=== PATIENT | male | born 1960 | race Caucasian/White ===

== ENCOUNTER 2020-05-27 08:05 | Outpatient (REF) | payer MEDICARE, MEDICAID, SELFPAY | END 2020-05-27 08:06 | disposition home or self-care (01) | LOC: HO.LAB 08:05 | PROVIDERS: PCP Physician Assistant; Referring Provider Physician Assistant; Visit Provider Internal Medicine | DX: Z20.822 Contact with and (suspected) exposure to COVID-19 (principal) | CPT/HCPCS: 36415; C9803; U0003 ==

== ENCOUNTER → 2020-07-29 12:58 | Outpatient (BNVA) | payer MEDICARE, MEDICAID, SELFPAY | PROVIDERS: PCP Physician Assistant; Visit Provider Anesthesiology | DX: M96.1 Postlaminectomy syndrome, not elsewhere classified (principal); M46.40 Discitis, unspecified, site unspecified; F19.10 Other psychoactive substance abuse, uncomplicated; G06.1 Intraspinal abscess and granuloma | CPT/HCPCS: 99202 ==

== ENCOUNTER 2020-08-22 17:57 | Outpatient (REF) | payer MEDICARE, MEDICAID, SELFPAY ==
--- NOTE | ~2020-08-22 | MR_ITS ---
MR LUMBAR SPINE WITHOUT CONTRAST CLINICAL INFORMATION: Discitis. COMPARISON: Lumbar spine MRI 09/12/2019. TECHNIQUE: MRI of the lumbar spine was obtained using routine sequences without contrast. FINDINGS: Straightening of the lumbar lordosis. 5 nonrib-bearing lumbar-type vertebral bodies. Postoperative changes following posterior instrumented lumbar interbody fusion spanning the L4-S1 levels. There is improved marrow edema involving the L1 and L2 vertebral bodies and there is near complete loss of the L1-L2 intervertebral disc with opposing L1 and L2 endplate irregularity. No residual epidural collection and no residual myositis. Vertebral body heights are maintained. Moderate disc volume loss at L2-L3. Disc desiccation at L2-L3 and L3-L4. The conus terminates at the L1-L2 level. There are no significant soft tissue findings. Spondylitic changes result in similar severe bilateral foraminal stenosis at T11-T12 and severe left-sided foraminal stenosis at T12-L1. L1-L2: Diffuse disc osteophyte complex and left greater than right hypertrophic facet arthropathy and ligamentum flavum thickening. Mild narrowing of the central canal. Similar severe left foraminal stenosis with compression of the exiting left L1 nerve root. L2-L3: Diffuse disc osteophyte complex and severe bilateral facet arthropathy and ligamentum flavum thickening. Findings in concert result in similar mild to moderate central canal stenosis and moderate bilateral foraminal stenosis. L3-L4: There is a diffuse annular disc bulge and there is severe bilateral facet arthropathy and ligamentum flavum thickening. Findings in concert result in worsening moderate central canal stenosis, bilateral subarticular zone stenosis with mass effect on the traversing L4 nerve roots bilaterally, and moderate right foraminal stenosis with right lateral disc osteophyte resulting in mass effect on the extraforaminal right L3 nerve root. L4-L5: Postoperative changes following posterior instrumented lumbar interbody fusion. No central canal stenosis and no significant foraminal stenosis. L5-S1: Postoperative changes following posterior instrumented lumbar interbody fusion. No central canal stenosis and no foraminal stenosis. 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 No residual epidural collection and no residual myositis. - At L1-L2, multifactorial degenerative changes result in similar severe left foraminal stenosis with compression of the exiting left L1 nerve root. - At L2-L3, multifactorial degenerative changes result in similar mild to moderate central canal stenosis and moderate bilateral foraminal stenosis. - At the L3-L4 junctional level, multifactorial degenerative changes result in worsening moderate central canal stenosis, bilateral subarticular zone stenosis with mass effect on the traversing L4 nerve roots bilaterally, and moderate right foraminal stenosis with right lateral disc osteophyte resulting in mass effect on the extraforaminal right L3 nerve root. - Chronic postoperative changes following posterior instrumented lumbar interbody fusion at the L4-S1 levels. No central canal stenosis and no foraminal stenosis at the postoperative levels.
== END 2020-08-22 17:58 | disposition home or self-care (01) ==
LOC: HO.MRI 17:57
PROVIDERS: Visit Provider Anesthesiology
DX: M46.40 Discitis, unspecified, site unspecified (principal); G06.1 Intraspinal abscess and granuloma; M96.1 Postlaminectomy syndrome, not elsewhere classified
CPT/HCPCS: 72148

== ENCOUNTER 2022-01-20 14:30 | Outpatient (REF) | payer MEDICARE, MEDICAID, SELFPAY ==
--- NOTE | ~2022-01-20 | US_ITS ---
EXAMINATION: US ABDOMEN LIMITED CLINICAL INFORMATION: Intra-abdominal and pelvic swelling. Mass, lump question hernia. COMPARISON: CT abdomen and pelvis without contrast 09/05/2019. TECHNIQUE: Real-time imaging of the soft tissues of the right lower quadrant abdominal wall. FINDINGS: No hernia is appreciated by ultrasound. No soft tissue mass, cyst or fluid collection is appreciated. US/US abdomen limited IMPRESSION: No hernia appreciated by ultrasound.
--- NOTE | ~2022-01-20 | US_ITS ---
EXAMINATION: US RETROPERITONEAL LIMITED (AORTA) CLINICAL INFORMATION: Smoking history COMPARISON: None TECHNIQUE: Gibbs-scale, color Doppler and spectral Doppler evaluation of the abdominal aorta. FINDINGS: There is atherosclerotic disease..The measurements of the aorta in maximum AP and transverse dimensions respectively are as follows: Proximal: 3.1 x 3.0 cm. Mid: 2.3 x 2.2 cm. Distal: 2.4 x 2.0 cm. PSV: 81 cm/s. The measurements of the common iliac arteries in maximum AP and TRV dimensions are as follows: Right Common Iliac Artery: 1.4 x 1.3 cm. Left Common Iliac Artery: 1.7 x 1.6 cm. US/US abdominal aortic aneurysm IMPRESSION: No abdominal aortic or iliac artery aneurysm.
== END 2022-01-20 14:31 | disposition home or self-care (01) ==
LOC: HO.US 14:30
PROVIDERS: Visit Provider Nurse Practitioner Family
DX: Z13.6 Encounter for screening for cardiovascular disorders (principal); R19.00 Intra-abdominal and pelvic swelling, mass and lump, unspecified site; F17.200 Nicotine dependence, unspecified, uncomplicated
CPT/HCPCS: 76705; 76706

== ENCOUNTER → 2022-03-17 12:36 | Outpatient (BNVA) | payer OTHER, SELFPAY | PROVIDERS: PCP Physician Assistant; Visit Provider Surgery | DX: K40.90 Unilateral inguinal hernia, without obstruction or gangrene, not specified as recurrent (principal); F17.210 Nicotine dependence, cigarettes, uncomplicated | CPT/HCPCS: 99202 ==

== ENCOUNTER 2022-03-31 13:51 | Outpatient (REF) | payer OTHER, SELFPAY ==
[2022-03-31 14:33] LABS: MANUAL DIFF FLAG NO
[2022-03-31 14:39] LABS: Basophils Absolute Auto 0.1 X10*3/uL (0.0-0.2); Basophils Percent Auto 1.6 % (0-2); Eosinophils Absolute Auto 0.4 X10*3/uL (0.0-0.4); Eosinophils Percent Auto 5.6 % (0-4); Hematocrit 39.2 % (42.0-52.0); Hemoglobin 12.8 g/dl (14.0-18.0); Imm Gran Abs Auto 0.02 X10*3/uL (0.00-0.03); Imm Gran Pct Auto 0.3 % (0.0-0.4); Lymphocytes Absolute Auto 2.1 X10*3/uL (1.2-4.9); Lymphocytes Percent Auto 29.8 % (20-40); Mean Corpuscular HGB Conc 32.7 g/dl (31.0-36.0); Mean Corpuscular Hemoglobin 29.8 pg (27.0-33.0); Mean Corpuscular Volume 91.4 fL (80.0-98.0); Mean Platelet Volume 8.4 fL (9.4-12.4); Monocytes Absolute Auto 0.8 X10*3/uL (0.1-1.2); Monocytes Percent Auto 11.8 % (2-11); Neutrophils Absolute Auto 3.5 x10*3/uL (2.0-8.3); Neutrophils Percent Auto 50.9 % (45-73); Platelet Count 261 X10*3/uL (160-400); Red Blood Count 4.29 X10*6/uL (4.60-5.80); Red Cell Distribution Width 13.1 % (11.0-16.0); White Blood Count 6.9 X10*3/uL (4.8-10.8)
[2022-03-31 15:43] LABS: Amphetamine Screen Urine Not Detected (Not Detect); Barbiturates, Urine Not Detected (Not Detect); Benzodiazepines Screen Urine Not Detected (Not Detect); Cannabinoid Screen Urine POSITIVE (Not Detect); Cocaine Screen Urine POSITIVE (Not Detect); Fentanyl, urine POSITIVE (Not Detect); Opiate Screen Urine POSITIVE (Not Detect); Phencyclidine Screen Urine Not Detected (Not Detect)
[2022-04-01 15:40] LABS: Estimated Average Glucose 103 mg/dL; Hemoglobin A1c % 5.2 %
[2022-04-01 15:44] LABS: Alanine Aminotransferase 21 U/L (0-40); Albumin Level 3.8 g/dL (3.5-5.0); Alkaline Phosphatase 72 U/L (39-117); Anion Gap 12 (12-20); Aspartate Amino Transferase 25 U/L (5-37); Bilirubin Total 0.3 mg/dL (0.0-1.0); Blood Urea Nitrogen 24 mg/dL (9-16); Calcium 9.2 mg/dL (8.4-10.2); Carbon Dioxide 26 mmol/L (22-29); Chloride 105 mmol/L (96-108); Estimated Glomerular Filt Rate 58; Glucose Random 69 mg/dL (60-115); Potassium 4.2 mmol/L (3.3-5.1); Sodium 139 mmol/L (135-145); Total Protein 6.6 g/dL (6.5-8.0)
[2022-04-05 00:15] LABS: Cotinine, U 109 ng/mL; Nicotine, U 558 ng/mL
== END 2022-03-31 13:52 | disposition home or self-care (01) ==
LOC: HO.LAB 13:51
PROVIDERS: PCP Physician Assistant; Visit Provider Surgery
DX: K40.90 Unilateral inguinal hernia, without obstruction or gangrene, not specified as recurrent (principal); R73.01 Impaired fasting glucose; F19.10 Other psychoactive substance abuse, uncomplicated; F17.200 Nicotine dependence, unspecified, uncomplicated
CPT/HCPCS: 80053; 80307; 80323; 83036; 85025; 99212

== ENCOUNTER 2022-04-13 09:05 | Outpatient (REF) | payer OTHER, SELFPAY ==
--- NOTE | ~2022-04-13 | CT_ITS ---
EXAMINATION: CT ABDOMEN AND PELVIS WITHOUT CONTRAST CLINICAL INFORMATION: Unilateral inguinal hernia. COMPARISON: Ultrasound abdomen and aorta limited 01/20/2022. TECHNIQUE: Multidetector volumetric imaging was performed from the superior aspect of the liver through the pubic symphysis. Sagittal and coronal reformatted images were obtained on the technologist's workstation. This CT examination was performed using dose optimization techniques as appropriate, variously including the following: *Automated exposure control *Adjustment of mA and/or kV according to patient size (this includes techniques or standardized protocols for targeted exams where dose is matched to indication/reason for exam; i.e. extremities or head) *Use of iterative reconstruction technique DLP: 408 mGy-cm FINDINGS: LUNG BASES: 3 mm and 4 mm nodules adjacent to each other left lung base image 11-7 and 10-7 respectively. The right lung base is clear. The heart size is normal. LIVER, GALLBLADDER, AND BILIARY TREE: The liver is normal in size, shape, and attenuation. No focal hepatic lesion or biliary ductal dilatation is present. The gallbladder is unremarkable with no evidence of radiopaque gallstones, gallbladder wall thickening, or obvious pericholecystic inflammatory changes. PANCREAS: Unremarkable. SPLEEN: Unremarkable. ADRENAL GLANDS: Unremarkable. KIDNEYS AND URETERS: The kidneys are normal in size, shape, and attenuation. No hydronephrosis, hydroureter, or calculi seen. No perinephric stranding. BLADDER: Unremarkable. GASTROINTESTINAL TRACT: There is moderate stool seen throughout the colon without significant distention. Oral contrast opacified small bowel loops is normal. There is moderate food and oral contrast recently ingested stomach. No free air or free fluid seen. ABDOMINAL WALL: There are prominent bilateral inguinal canal hernia containing retroperitoneal fat slightly greater on the right than left. No hernia was seen on ultrasound exam 01/20/2022 LYMPH NODES: No abnormal size lymph node seen. VASCULAR: Unremarkable. PELVIC VISCERA: Unremarkable. OSSEOUS STRUCTURES: There is L4-L5 and L5/S1 fusion with posterior hardware from L3 through S1 vertebra. There is posterior hardware extending from L4 through S1 vertebra. There are degenerative disc changes throughout all remaining lumbar disc levels with moderate ventral spondylosis. There is almost L1-L2 disc fusion with complete loss of disc space. [id number] dextroscoliosis of dorsolumbar junction is noted. CT/CT abdomen pelvis wo IV con IMPRESSION: 1. Moderate constipation without obstruction. 2. Prominent bilateral inguinal canal hernia containing retroperitoneal fat slightly greater on the right than left. Fleischner guidelines were followed.
[2022-04-13] MEDS: Barium Sulfate Oral (Berry) 450 ML ORAL.SUSP 900 ML PO (11:36)
== END 2022-04-13 09:06 | disposition home or self-care (01) ==
LOC: HO.CT 09:05
PROVIDERS: Visit Provider Physician Assistant
DX: K40.90 Unilateral inguinal hernia, without obstruction or gangrene, not specified as recurrent (principal)
CPT/HCPCS: 74176

== ENCOUNTER 2022-07-03 14:08 | Outpatient (REF) | payer OTHER, SELFPAY ==
--- NOTE | ~2022-07-03 | CT_ITS ---
EXAMINATION: CT CHEST SCREENING CLINICAL INFORMATION: Current smoker with 44 pack year history COMPARISON: 04/18/2020 TECHNIQUE: Multidetector volumetric CT imaging of the chest is performed without contrast using low dose technique. Additional 2D coronal and sagittal reformatted images and axial 3D maximum intensity projection (MIP) images are generated on the CT workstation. This CT examination was performed using dose optimization techniques as appropriate, variously including the following: *Automated exposure control *Adjustment of mA and/or kV according to patient size (this includes techniques or standardized protocols for targeted exams where dose is matched to indication/reason for exam; i.e. extremities or head) *Use of iterative reconstruction technique DLP: 51 mGy-cm FINDINGS: LUNGS: Mild emphysema. Diffuse moderate bronchial thickening without bronchiectasis. Stable fibronodular pleural-parenchymal scarring in the left upper lobe with associated nodular component measuring 8.8 x 5.2 mm, unchanged since 2014. A more geographic nodular component is present superiorly, also stable in size and morphology. No parenchymal consolidation MEDIASTINUM: Normal heart size. No pericardial effusion. Great vessels normal caliber. No mediastinal or hilar lymphadenopathy. CORONARY ARTERY CALCIFICATION: Present PLEURA: There is no pleural effusion. No pleural mass or thickening. AXILLA: No lymphadenopathy. UPPER ABDOMEN: Unremarkable OSSEOUS STRUCTURES: No acute or suspicious osseous abnormalities. CT/CT lung screening IMPRESSION: No evidence of pulmonary malignancy. Mild emphysema and chronic airways disease. ASSESSMENT: Lung-RADS category 2: Benign RECOMMENDATION: Routine annual low-dose CT screening in 12 months.
== END 2022-07-03 14:09 | disposition home or self-care (01) ==
LOC: HO.CT 14:08
PROVIDERS: PCP Physician Assistant; Visit Provider Physician Assistant Medical
DX: Z12.2 Encounter for screening for malignant neoplasm of respiratory organs (principal); F17.210 Nicotine dependence, cigarettes, uncomplicated
CPT/HCPCS: 71271; G0296

== ENCOUNTER 2022-12-14 14:10 | Outpatient (AMB) | payer OTHER, SELFPAY ==
--- NOTE | 2022-12-14 14:25 | MHC.OFFVIS ---
Intake Vital Signs 12/14/22 14:30 Height 5 ft 9 in Weight 152 lb BMI 22.4 BP 122/78 Blood Pressure Location Lt brachial Position Standing Pulse 92 Pulse Source Pulse Oximeter Pulse Oximetry (%) 97 Oxygen Delivery Method Room Air Intake Visit Reasons: Emphysema Intake Note: pt is here as new patient for emphysema, and was referred for management. Dental Associate Required: No Allergies No Known Allergies [No Known Allergies*] Allergy (Verified 12/14/22 15:14) Medication List - Last Reconciled 12/14/22 by Regina Alejandro MD albuterol sulfate 2.5 mg (3 mL) inhalation Q6H PRN 30 days albuterol sulfate 90 mcg/actuation 2 puffs PO Q6H PRN 30 days baclofen 20 mg PO TID PRN fluticasone furoate-vilanterol 100-25 mcg/dose (Breo Ellipta) 1 ea PO DAILY ibuprofen 800 mg PO Q6H PRN 15 days nicotine (polacrilex) 2 mg buccal Q2H PRN 30 days Do you need a note to return to daycare/school/sports/work: No HPI Emphysema HPI Details This 62 years old gentleman is being seen for the 1st time, for his COPD management. He has history of smoking since age 16 , but smoked 1 pack in about 1 week. now he is smoking only 3-4 cigarettes a day, trying to quit. He started going for Annual lung screening, and had his low does CT scan in July of this year. No significant pulmonary nodules but he was told that he has pulmonary emphysema. Prior to that, he was told about 10 years ago that he has COPD. but when he was told that he has pulmonary emphysema he became much more concerned. He he had pulmonary function test the a in 2011, which I have reviewed, and definitely showed that he had severe chronic obstructive pulmonary disease even at that yahaira. Luckily he has been doing well, with minimal to moderate symptoms. He say is that he used to get recurrent respiratory infection but since he has started getting annual flu shot and also pneumonia shorts Q 5 y,ears he has had no serious chest infection. During his normal day-to-day activities he does not feel much short of ,breath a.nd cough is also minimal. However if he has to walk fast or climbs stairs he does get short of breath. Meds : Breo 100-25 1 inhalation daily, ProAir HFA 2 puffs Q 6 hours p.r.n. which he uses only once in awhile . Also has nebulizer at home and occasionally uses albuterol solution in that. [facility] Medical History (Updated 12/14/22 @ 16:49 by Regina Alejandro MD) Bacterial spinal epidural abscess (~09/2019) Discitis Intravenous drug abuse Nicotine dependence, cigarettes, uncomplicated Postlaminectomy syndrome Pulmonary emphysema Surgical History History of appendectomy History of colonoscopy History of lumbar surgery History of tonsillectomy Family History Father Medical history unknown Mother No problems noted. Social History Housing: House Alcohol intake: current Alcohol intake frequency: holidays/special occasions only Alcohol type: beer Patient Tobacco Use Status: Current everyday Tobacco user Tobacco use type: Cigarette Cigarettes Per Day: 4 Years Smoked: onset 16yo, 1ppd x 46yrs, now 5cig/day - 40pyh e-Cigarette/Vaping Use: Never Used Second Hand Smoke Exposure: Yes Substance Use Type: Crack/Cocaine and IV Drugs service: No Current occupational status: unemployed Cognitive needs: No Hearing needs: No Vision needs: Yes (reading glasses) Review of Systems Const All systems reviewed & are unremarkable except as noted in HPI and below Eyes Reports no additional complaints ENT Reports no additional complaints Card Denies chest pain, Denies irregular heart rhythm and Denies leg edema Resp Reports as per HPI GI Reports no additional complaints Reports no additional complaints Musc Reports back pain ( chronic, uses muscle relaxants and ibuprofen p.r.n.) Skin/Breast Reports system reviewed and no additional complaints, except as documented Neuro Reports no additional complaints Psych Reports no additional complaints Endo Reports no additional complaints Aller/Immun Reports no additional complaints Physical Exam Vital Signs: Last Vital Signs Pulse 92 12/14/22 14:30 BP 122/78 12/14/22 14:30 Pulse Ox 97 12/14/22 14:30 Oxygen Delivery Method Room Air 12/14/22 14:30 BMI result Body Mass Index 22.4 Const General: healthy appearing, comfortable, no acute distress, alert and awake Orientation/consciousness: patient oriented x3 HEENT Head: Yes normal to inspection General nose exam: No nasal polyps present and No nasal discharge present Face and sinus: Yes sinuses nontender Mouth: oropharynx normal Throat: Yes posterior oropharynx normal Eyes General: appearance normal, both eyes and all related structures Neck Neck: Yes normal visual inspection, Yes no lymphadenopathy, Yes trachea midline and Yes no JVD Thyroid: Thyroid normal Chest Chest palpation & inspection: normal inspection of the chest, normal palpation of entire chest wall and no tenderness Resp Other: PERCUSSION NOTE IS HYPER-RESONANT, BREATH SOUNDS ARE DISTANT ON BOTH SIDES WITH. PROLONGED EXPIRATORY PHASE. NO WHEEZE.S RHONCHI OR CREPITATIONS ARE HEARD Cardio Palpation: normal PMI Rate: regular rate Rhythm: regular rhythm Heart sounds: no gallops and no murmurs Peripheral pulses: Peripheral pulses 2+ throughout GI Palpation (GI): Soft to palpation, nontender, No hepatosplenomegaly present and no masses Auscultation: normal bowel sounds Back/Spine/Pelvis Thoracic/Lumbar Spine: thoracic and lumbar spine normal to inspection Skin General skin exam: no rashes or lesions noted Neuro General: patient oriented x3 and no focal motor deficits Cranial nerves: Yes CN's II-XII intact bilaterally Extrem General: Yes normal to inspection, Yes no clubbing, cyanosis or edema and Yes no calf tenderness Psych Appearance: grossly normal and well kempt Speech and movement: Normal speech and movement present Results Reviewed Results Reviewed: CT SCAN OF THE CHEST ON 07/03/22 NEGATI.VE FOR PULMONARY NODULES. SHOWED PULMONARY EMPHYSEMA Assessment & Plan Assessment & Plan (1) COPD (chronic obstructive pulmonary disease): Comment: THIS GENTLEMAN DOES HAVE MODERATE AT LEAST SEVERE CHRONIC OBSTRUCTIVE PULMONARY DISORDER., PER PFT IN 2012 HE HAS REMAINED RELATIVELY STABLE, BUT SHORT OF BREATH ON EXERTION. TX : CONTINUE TO USE BREO 100-25 1 INHALATION DAILY ALBUTEROL HFA 2 PUFFS Q 4-6 HOURS P.R.N. AND ALTERNATIVELY ALBUTEROL 2.5 MG SOLUTION IN THE NEBULIZER P.R.N.. * REPEAT PULMONARY FUNCTION TEST IS ORDERED, AND WILL RE-EVALUATE AFTER THE TEST IF HE NEEDS ANY ADDITIONAL MEDICINE. Code(s): J44.9 - Chronic obstructive pulmonary disease, unspecified Qualifiers: COPD type: emphysema Emphysema type: centrilobular Qualified Code(s): J43.2 - Centrilobular emphysema (2) Pulmonary emphysema: Comment: PATIENT DOES HAVE EVIDENCE OF PULMONARY. EMPHYSEMA O N THE CT SCAN I EXPLAINED TO HIM THAT PULMONARY EMPHYSEMA ARE COPD ARE 1 AND THE SAME THING. EDUCATED ABOUT. COPD IN HIS CASE COPD IS PREDOMINANTLY DUE TO PULMONARY EMPHYSEMA. Code(s): J43.9 - Emphysema, unspecified (3) Nicotine dependence, cigarettes, uncomplicated: Comment: (current smoker, onset 16yo, 1ppd x 46yrs, now 1/4ppd - 40pyh) at present he is smoking about 5 cigarettes a day, I counselled him a that he needs to quit completely. he will continue to participate in annual lung screening program. Code(s): F17.210 - Nicotine dependence, cigarettes, uncomplicated Orders: Orders PFT pulmonary function test Today F17.210 - Nicotine dependence, cigarettes, uncomplicated, J43.9 - Emphysema, unspecified, J44.9 - Chronic obstructive pulmonary disease, unspecified Medications: Changed From baclofen 20 mg PO TID 30 days 90 tabs 3RF M51.16 - Intervertebral disc disorders with radiculopathy, lumbar region To baclofen 20 mg PO TID PRN M51.16 - Intervertebral disc disorders with radiculopathy, lumbar region Coding Level of Care Code New Pt Level 4 (46011) Diagnoses COPD (chronic obstructive pulmonary disease) J43.2 COPD type: emphysema Emphysema type: centrilobular Pulmonary emphysema J43.9 Nicotine dependence, cigarettes, uncomplicated F17.210
[2022-12-14 14:30] VITALS: BP 122/78; PULSE 92; O2SAT 97; BMI 22.4
== END 2022-12-14 15:15 | disposition home or self-care (01) ==
PROVIDERS: PCP Physician Assistant; Visit Provider Internal Medicine
DX: J43.2 Centrilobular emphysema (principal); J43.9 Emphysema, unspecified; F17.210 Nicotine dependence, cigarettes, uncomplicated
CPT/HCPCS: 99204

== ENCOUNTER → 2022-12-14 14:10 | Outpatient (BNVA) | payer OTHER, SELFPAY | PROVIDERS: PCP Physician Assistant; Visit Provider Internal Medicine | DX: J43.2 Centrilobular emphysema (principal); F17.210 Nicotine dependence, cigarettes, uncomplicated | CPT/HCPCS: 99202 ==

== ENCOUNTER 2023-01-11 09:23 | Outpatient (AMB) | payer OTHER, SELFPAY ==
--- NOTE | 2023-01-11 09:45 | MHC.PC.OV ---
Vital Signs 01/11/23 09:46 Height 5 ft 9 in Weight 154 lb BMI 22.7 BP 124/80 Blood Pressure Location Lt brachial Position Sitting Pulse 87 Pulse Source Pulse Oximeter Pulse Oximetry (%) 97 Oxygen Delivery Method Room Air Intake Visit Reasons: f/u COPD Intake Note: Patient is here to follow up on COPD. Stemhole Borer And Topper Required: No Buttonholer: Not Required per policy Accompanied by: Self / Same As Patient Allergies No Known Allergies [No Known Allergies*] Allergy (Verified 01/11/23 10:18) Medication List - Last Reconciled 01/11/23 by IMANI Granado albuterol sulfate 2.5 mg (3 mL) inhalation Q6H PRN 30 days albuterol sulfate 90 mcg/actuation 2 puffs PO Q6H PRN 30 days baclofen 20 mg PO TID 90 days fluticasone furoate-vilanterol 100-25 mcg/dose (Breo Ellipta) 1 ea PO DAILY ibuprofen 800 mg PO Q6H PRN 15 days nicotine (polacrilex) 2 mg buccal Q2H PRN 30 days Tobacco use date assessed: 01/11/23 Dental Screening Dental Screen Date: 01/11/23 Did you have a dental visit in the last 12 months?: No Did you have a dental problem in the last 6 months where you did not have access to dental care?: No Was dental information given to patient?: No HPI HPI Comments History of Present Illness Details 62-year-old male past medical history significant for COPD, pulmonary emphysema, current smoker and lumbar disc disease with radiculopathy. Patient of Mloina Barcenas, presents today for follow up visit. Review of the notes patient has been seen by Dr. Alejandro pulmonology who recommended re-peat pfts to see if patient requires any addittion medication. Patient reports has an upcoming appointment for that on 01/26/23. Patient reports is having to use his rescues inhaler every night due to the humidity with some relief. Patient reports has decreased his smoking and he will maybe have 3 cigarettes per week at times he does not even finish the whole cigarette he will take a few puffs and then put it out. Patient reports that he has not used any drugs in 4 months. . [facility] Medical History (Updated 12/14/22 @ 16:49 by Regina Alejadnro MD) Pulmonary emphysema Bacterial spinal epidural abscess (~09/2019) Nicotine dependence, cigarettes, uncomplicated Intravenous drug abuse Discitis Postlaminectomy syndrome Surgical History History of colonoscopy History of appendectomy History of tonsillectomy History of lumbar surgery Family History Father Medical history unknown Mother No problems noted. Social History (Updated 01/11/23 @ 09:50 by JAY Menon) Housing: House Alcohol intake: current Alcohol intake frequency: holidays/special occasions only Alcohol type: beer Patient Tobacco Use Status: Current everyday Tobacco user Tobacco use type: Cigarette Cigarettes Per Day: 2 Years Smoked: onset 16yo, 1ppd x 46yrs, now 5cig/day - 40pyh e-Cigarette/Vaping Use: Never Used Second Hand Smoke Exposure: Yes Substance Use Type: Crack/Cocaine and IV Drugs service: No Current occupational status: unemployed Cognitive needs: No Hearing needs: No Vision needs: Yes (reading glasses) Questionnaire Thrive Questionnaire Date Thrive assessed: 09/22/22 JONES-7 AMB Questionnaire JONES-7 Date JONES - 7 assessed: 09/22/22 Source: Developed by Drs. Micheal Alba, Dorothy Carl, Nicolas Haq and colleagues, with an educational manny from [employer], IP. Review of Systems Const Denies chills, Denies fatigue, Denies fever(s) and Denies poor appetite Eyes Denies no additional complaints ENT Reports Normal hearing present Card Denies chest pain, Denies syncope, Denies rapid heart rate and Denies dyspnea Resp Denies cough and Denies dyspnea GI Denies change in stool character, Denies constipation, Denies diarrhea, Denies nausea and Denies vomiting Denies dysuria, Denies urinary frequency and Denies urinary urgency Neuro Reports Normal hearing present, Denies confusion and Denies syncope Psych Denies confusion Endo Denies fatigue Physical exam (Primary Care) Vital Signs: Last Vital Signs Pulse 87 01/11/23 09:46 BP 124/80 01/11/23 09:46 Pulse Ox 97 01/11/23 09:46 Oxygen Delivery Method Room Air 01/11/23 09:46 BMI result Body Mass Index 22.7 Tobacco/Smoking Status: Tobacco use Status Tobacco use date assessed 01/11/23 01/11/23 09:51 Patient Tobacco Use Status Current everyday Tobacco 01/11/23 09:51 Tobacco use type Cigarette 01/11/23 09:51 e-Cigarette/Vaping Use Never Used 01/11/23 09:51 Thrive Assessment: Date of Thrive Assessment Date Thrive assessed 09/22/22 01/11/23 09:51 Const General: No confusion Orientation/consciousness: No confusion HENMT Head: Yes normocephalic and Yes atraumatic Eyes Conjunctivae: conjunctivae normal Chest Chest palpation & inspection: normal inspection of the chest Resp Effort & Inspection: normal respiratory effort Auscultation: no crackles, no rhonchi and wheezes scattered wheezes (scattered expiratory wheezes. ) Cardio Rate: regular rate Rhythm: regular rhythm Heart sounds: S1 normal heart sound present and S2 normal heart sound present GI Inspection: Yes normal to inspection Neuro General: No confusion Cranial nerves: Yes Normal hearing present Extrem General: No edema Assessment and Plan Assessment & Plan (1) COPD (chronic obstructive pulmonary disease): Comment: THIS GENTLEMAN DOES HAVE MODERATE AT LEAST SEVERE CHRONIC OBSTRUCTIVE PULMONARY DISORDER., PER PFT IN 2012 HE HAS REMAINED RELATIVELY STABLE, BUT SHORT OF BREATH ON EXERTION. TX : CONTINUE TO USE BREO 100-25 1 INHALATION DAILY ALBUTEROL HFA 2 PUFFS Q 4-6 HOURS P.R.N. AND ALTERNATIVELY ALBUTEROL 2.5 MG SOLUTION IN THE NEBULIZER P.R.N.. * REPEAT PULMONARY FUNCTION TEST IS ORDERED, AND WILL RE-EVALUATE AFTER THE TEST IF HE NEEDS ANY ADDITIONAL MEDICINE. Code(s): J44.9 - Chronic obstructive pulmonary disease, unspecified Qualifiers: COPD type: emphysema Emphysema type: centrilobular Qualified Code(s): J43.2 - Centrilobular emphysema Plan: Continue on current inhalers. Continue to follow with pulmonology. Repeat Pfts scheduled 01/26/23. (2) Pulmonary emphysema: Comment: PATIENT DOES HAVE EVIDENCE OF PULMONARY. EMPHYSEMA O N THE CT SCAN I EXPLAINED TO HIM THAT PULMONARY EMPHYSEMA ARE COPD ARE 1 AND THE SAME THING. EDUCATED ABOUT. COPD IN HIS CASE COPD IS PREDOMINANTLY DUE TO PULMONARY EMPHYSEMA. Code(s): J43.9 - Emphysema, unspecified Plan Follow up in 3 months or sooner if needed. Medications: Refilled ibuprofen 800 mg PO Q6H 15 days PRN 60 tabs 0RF pain M96.1 - Postlaminectomy syndrome, not elsewhere classified Coding Level of Care Code Est Pt Level 3 (68126) Diagnoses Centrilobular emphysema J43.2 COPD type: emphysema Emphysema type: centrilobular Pulmonary emphysema J43.9
[2023-01-11 09:46] VITALS: BP 124/80; PULSE 87; O2SAT 97; BMI 22.7
== END 2023-01-11 10:27 | disposition home or self-care (01) ==
PROVIDERS: PCP Physician Assistant; Visit Provider Nurse Practitioner Family
DX: J43.2 Centrilobular emphysema (principal); J43.9 Emphysema, unspecified
CPT/HCPCS: 99213

== ENCOUNTER 2023-01-11 10:31 | Outpatient (REF) | payer OTHER, SELFPAY ==
[2023-01-11 13:41] LABS: Amphetamine Screen Urine Not Detected (Not Detect); Barbiturates, Urine Not Detected (Not Detect); Benzodiazepines Screen Urine Not Detected (Not Detect); Cannabinoid Screen Urine POSITIVE (Not Detect); Cocaine Screen Urine POSITIVE (Not Detect); Fentanyl, urine POSITIVE (Not Detect); Opiate Screen Urine Not Detected (Not Detect); Phencyclidine Screen Urine Not Detected (Not Detect)
[2023-01-15 00:28] LABS: Cotinine 61 ng/mL; Nicotine <2 ng/mL
== END 2023-01-11 10:32 | disposition home or self-care (01) ==
LOC: HO.LAB 10:31
PROVIDERS: PCP Physician Assistant; Visit Provider Physician Assistant
DX: F19.10 Other psychoactive substance abuse, uncomplicated (principal); F11.20 Opioid dependence, uncomplicated; F17.210 Nicotine dependence, cigarettes, uncomplicated
CPT/HCPCS: 80307; 80323

== ENCOUNTER 2023-04-20 10:56 | Outpatient (AMB) | payer OTHER, SELFPAY ==
--- NOTE | 2023-04-20 10:59 | A.OFFPC_ITS ---
Vital Signs 04/20/23 11:07 Height 5 ft 9 in Weight 151 lb BMI 22.3 BP 120/88 Blood Pressure Location Lt brachial Position Sitting Respiration 16 Pulse 62 Pulse Source Palpation Intake Visit Reasons: COPD Follow up Tipple Tender Required: No Accompanied by: Self / Same As Patient Allergies No Known Allergies [No Known Allergies*] Allergy (Verified 04/20/23 11:10) Medication List - Last Reconciled 04/20/23 by Salinas Barcenas PA-C albuterol sulfate 2.5 mg (3 mL) inhalation Q6H PRN 30 days albuterol sulfate 90 mcg/actuation 2 puffs PO Q6H PRN 30 days baclofen 20 mg PO TID 90 days fluticasone furoate-vilanterol 100-25 mcg/dose (Breo Ellipta) 1 ea PO DAILY ibuprofen 800 mg PO Q6H PRN 15 days nicotine (polacrilex) 2 mg buccal Q2H PRN 30 days Tobacco use date assessed: 01/11/23 Dental Screening Dental Screen Date: 04/20/23 Did you have a dental visit in the last 12 months?: No Did you have a dental problem in the last 6 months where you did not have access to dental care?: No Was dental information given to patient?: Patient has dentist HPI COPD Follow up HPI Details Patient is a 62-year-old male here today for follow-up visit.? Patient has a past medical history significant for COPD, tobacco use disorder, lumbar disc disease, prior history of IV drug use (crack cocaine) .. .. Polysubstance use: Informs me he stopped snorting cocaine. This is unclear .. COPD:? Patient reports his breathing has been fairly stable, unfortunately continues to smoke a couple cigarettes per day. He continues on maintenance inhaler Breo with good effect. Has establish care with a fire control assistant whom would like to do pulmonary function tests with him. Has not been able to schedule testing. ? He is using nicotine gum which he has find helpful. We did speak about generic Chantix and would like to hold off on this for now. .. Hyperlipidemia: Has a history of elevated total cholesterol. Will recheck fasting lipid panel to assure appropriate total cholesterol and LDL. .. Lumbar disc disease:?Pain Has been fairly stable with p.r.n. use of ibuprofen and baclofen.? He does have a history of lumbar spine surgery due to not effective lumbar disc. [facility] Medical History Pulmonary emphysema Bacterial spinal epidural abscess (~09/2019) Nicotine dependence, cigarettes, uncomplicated Intravenous drug abuse Discitis Postlaminectomy syndrome Surgical History History of colonoscopy History of appendectomy History of tonsillectomy History of lumbar surgery Family History Father Medical history unknown Mother No problems noted. Social History Housing: House Alcohol intake: current Alcohol intake frequency: holidays/special occasions only Alcohol type: beer Patient Tobacco Use Status: Current everyday Tobacco user Tobacco use type: Cigarette Cigarettes Per Day: 2 Years Smoked: onset 16yo, 1ppd x 46yrs, now 5cig/day - 40pyh e-Cigarette/Vaping Use: Never Used Second Hand Smoke Exposure: Yes Substance Use Type: Crack/Cocaine and IV Drugs service: No Current occupational status: unemployed Cognitive needs: No Hearing needs: No Vision needs: Yes (reading glasses) Questionnaire Thrive Questionnaire Date Thrive assessed: 09/22/22 JONES-7 AMB Questionnaire JONES-7 Date JONES - 7 assessed: 09/22/22 Source: Developed by Drs. Micheal Alba, Dorothy Carl, Nicolas Haq and colleagues, with an educational manny from [employer]. Review of Systems Const Denies headache(s) Eyes Denies loss of vision ENT Denies vertigo, Denies dizziness, Denies headache(s) and Denies sore throat Card Denies chest pain, Denies leg edema and Denies lightheadedness Resp Denies cough, Denies hemoptysis and Denies wheezing GI Denies abdominal pain, Denies melena, Denies constipation, Denies diarrhea and Denies vomiting Denies dysuria, Denies urinary frequency and Denies urinary urgency Musc Denies arthralgias, Denies joint swelling, Denies numbness and Denies tingling Neuro Denies Abnormal speech present, Denies behavioral changes, Denies vertigo, Denies dizziness, Denies headache(s), Denies loss of vision, Denies memory loss, Denies numbness and Denies tingling Psych Denies anxiety, Denies behavioral changes, Denies depression, Denies memory loss and Denies panic attacks Blake/Lymph Denies easy bleeding and Denies easy bruising Aller/Immun Denies wheezing Physical exam (Primary Care) Vital Signs: Last Vital Signs Pulse 62 04/20/23 11:07 Resp 16 04/20/23 11:07 BP 120/88 04/20/23 11:07 BMI result Body Mass Index 22.3 Tobacco/Smoking Status: Tobacco use Status Tobacco use date assessed 01/11/23 04/20/23 10:59 Patient Tobacco Use Status Current everyday Tobacco 04/20/23 10:59 Tobacco use type Cigarette 04/20/23 10:59 e-Cigarette/Vaping Use Never Used 04/20/23 10:59 Are you ready to quit: No Tobacco cessation counseling provided: Yes Items discussed: Nicotine replacement and QuitWorks Relapse Prevention: discussed the importance of a supportive environment, discussed extending NRT, discussed negative mood or depression after quitting, weight gain after smoking is common and discussed dietary, exercise and/or lifestyle changes Number of minutes spent counselin CPT code: 37566 - 4-10 Minutes Thrive Assessment: Date of Thrive Assessment Date Thrive assessed 09/22/22 04/20/23 10:59 Const General: healthy appearing, no acute distress, alert and awake Nutritional Appearance: well nourished Orientation/consciousness: oriented to person, oriented to place and oriented to time HENMT Ears: TM's normal bilaterally General nose exam: Normal nasal mucous membranes and turbinates present Eyes Conjunctivae: conjunctivae normal Sclerae: sclerae normal Pupils: Equal, round and reactive pupils present Neck Neck: Yes no lymphadenopathy and Yes no JVD Thyroid: Thyroid normal Carotids: no bruits Resp Effort & Inspection: normal respiratory effort and not tachypneic Auscultation: no crackles, no rales, no rhonchi and wheezes Cardio Rate: regular rate Rhythm: regular rhythm Heart sounds: no murmurs and normal S1 and S2 GI Palpation (GI): Soft to palpation, nontender, no hepatomegaly and no splenomegaly Auscultation: normal bowel sounds Skin General skin exam: no rashes or lesions noted and dry skin Neuro General: oriented to person, oriented to place and oriented to time Cranial nerves: Yes Equal, round and reactive pupils present Speech: No Abnormal speech present Gait exam (Neuro): Normal gait present Motor exam (neuro): no tremor noted Extrem Right upper extremity: full ROM Left upper extremity: full ROM Right lower extremity: full ROM; no edema Left lower extremity: full ROM; no edema Psych Mental Status: mental status grossly normal Speech and movement: Normal speech and movement present Affect: normal affect Attitude: cooperative Thought process: Normal thought process present Office Procedures Flu Questionnaire Does the patient have a severe egg allergy?: No Does the patient have severe life threatening allergies?: No Does the patient have a fever or illness today?: No Has the patient ever had Guillain-Lomira Syndrome?: No Has the patient ever had any past reaction to a flu shot?: No Immunizations flu vacc [id number] 6mos up(PF) 60 mcg(15 mcgx4)/0.5 mL IM syringe Performing Provider: Salinas Barcenas PA-C Performing Location: [facility] Administered by: DAVID Urban on 04/20/23 11:10 Dose Route Admin Location Dispensed Lot Number Expiration Date [employer] (roll.to) Chief Order Dispatcher 0.5 mL IM Left Deltoid 0.5 mL [id number] 10/31/23 63308-476-83 [employer] VIS Given Date VIS Provided VIS Publication Date 04/20/23 Single Vaccine 20 Eligibility Eligibility Date Funding Source Not VFC Eligible 04/20/23 Private pneumoc 20-sarah conj-dip cr(PF) 0.5 mL IM syringe Performing Provider: Salinas Barcenas PA-C Performing Location: [facility] Administered by: DAVID Urban on 04/20/23 11:36 Dose Route Admin Location Dispensed Lot Number Expiration Date [email or web address] Chief Order Dispatcher 0.5 mL IM Left Deltoid 0.5 mL [id number] 06/03/24 1547-6745-78 [employer] VIS Given Date VIS Provided VIS Publication Date 04/20/23 Single Vaccine 21 Eligibility Eligibility Date Funding Source Not VFC Eligible 04/20/23 Private Assessment and Plan Assessment & Plan (1) COPD (chronic obstructive pulmonary disease): Comment: THIS GENTLEMAN DOES HAVE MODERATE AT LEAST SEVERE CHRONIC OBSTRUCTIVE PULMONARY DISORDER., PER PFT IN 2011 HE HAS REMAINED RELATIVELY STABLE, BUT SHORT OF BREATH ON EXERTION. TX : CONTINUE TO USE BREO 100-25 1 INHALATION DAILY ALBUTEROL HFA 2 PUFFS Q 4-6 HOURS P.R.N. AND ALTERNATIVELY ALBUTEROL 2.5 MG SOLUTION IN THE NEBULIZER P.R.N.. * REPEAT PULMONARY FUNCTION TEST IS ORDERED, AND WILL RE-EVALUATE AFTER THE TEST IF HE NEEDS ANY ADDITIONAL MEDICINE. Code(s): J44.9 - Chronic obstructive pulmonary disease, unspecified Qualifiers: COPD type: emphysema Emphysema type: centrilobular Qualified Code(s): J43.2 - Centrilobular emphysema Plan: Patient does continue to have shortness of breath and wheeze at times worse at night. Does use an albuterol inhaler and maintenance Breo inhaler with decent affect. Most recent CT chest showing mild emphysema. Unfortunately continues to smoke few cigarettes per day and does understand he needs to completely quit (2) Nicotine dependence, cigarettes, uncomplicated: Comment: (current smoker, onset 16yo, 1ppd x 46yrs, now 1/4ppd - 40pyh) at present he is smoking about 5 cigarettes a day, I counselled him a that he needs to quit completely. he will continue to participate in annual lung screening program. Code(s): F17.210 - Nicotine dependence, cigarettes, uncomplicated Plan: He does understand he needs to quit smoking though has found it very difficult to do so. Will supply him with nicotine gum again to help him with nicotine cravings. (3) Postlaminectomy syndrome: Code(s): M96.1 - Postlaminectomy syndrome, not elsewhere classified Plan: Patient does have history of acute infection (epidural abscess) is lumbar spine due to IV drug use and is status post laminectomy. He still does use as needed ibuprofen 800 and baclofen for his pain which works well. (4) Screening for diabetes mellitus (DM): Code(s): Z13.1 - Encounter for screening for diabetes mellitus (5) Insomnia: Code(s): G47.00 - Insomnia, unspecified Qualifiers: Insomnia type: primary Qualified Code(s): F51.01 - Primary insomnia Plan: Reports he has been having some trouble staying asleep at night. He is willing to try hydroxyzine on a p.r.n. basis for sleep. Also discussed [id number] melatonin, chamomile tea or Benadryl. (6) HLD (hyperlipidemia): Code(s): E78.5 - Hyperlipidemia, unspecified Qualifiers: Hyperlipidemia type: mixed hyperlipidemia Qualified Code(s): E78.2 - Mixed hyperlipidemia Plan: HAs a history of high cholesterol . WIll recheck a fasting lipid panel Orders: Orders Influenza [id number] Immunization Today Z23 - Encounter for immunization Comprehensive [place]. Panel Fast Today F51.01 - Primary insomnia Complete Blood Count no Diff Today J43.2 - Centrilobular emphysema Lipid Panel Today E78.2 - Mixed hyperlipidemia Prostate Specific Antigen Scr Today F51.01 - Primary insomnia, Z12.5 - Encounter for screening for malignant neoplasm of prostate Pneumococcal 20 Immunization Today Z23 - Encounter for immunization Medications: New hydroxyzine HCl 25 mg PO BEDTIME 14 days 14 tabs 1RF F51.01 - Primary insomnia Refilled fluticasone furoate-vilanterol 100-25 mcg/dose (Breo Ellipta) 1 ea PO DAILY 60 ea 3RF J44.9 - Chronic obstructive pulmonary disease, unspecified ibuprofen 800 mg PO Q6H 15 days PRN 60 tabs 3RF pain M96.1 - Postlaminectomy syndrome, not elsewhere classified baclofen 20 mg PO TID 90 days 270 tabs 1RF M51.16 - Intervertebral disc disorders with radiculopathy, lumbar region Coding Level of Care Code Est Pt Level 4 (22448) Diagnoses Centrilobular emphysema J43.2 COPD type: emphysema Emphysema type: centrilobular Nicotine dependence, cigarettes, uncomplicated F17.210 Postlaminectomy syndrome M96.1 Screening for diabetes mellitus (DM) Z13.1 Primary insomnia F51.01 Insomnia type: primary Mixed hyperlipidemia E78.2 Hyperlipidemia type: mixed hyperlipidemia Additional Codes Vital Signs *Quality* - CPT code: 08269 - 4-10 Minutes ([id number])
[2023-04-20 11:07] VITALS: BP 120/88; PULSE 62; RESP 16; BMI 22.3
== END 2023-04-20 11:38 | disposition home or self-care (01) ==
PROVIDERS: PCP Physician Assistant; Visit Provider Physician Assistant
DX: Z23 Encounter for immunization (principal); J43.2 Centrilobular emphysema; F17.210 Nicotine dependence, cigarettes, uncomplicated; M96.1 Postlaminectomy syndrome, not elsewhere classified; F51.01 Primary insomnia; E78.2 Mixed hyperlipidemia
CPT/HCPCS: 90471; 90677; 90686; 99214

== ENCOUNTER 2023-04-30 17:19 | Emergency (ER) | payer OTHER, SELFPAY ==
--- NOTE | ~2023-04-30 | XR_ITS ---
EXAMINATION: XR CHEST CLINICAL INFORMATION: Productive cough and fever COMPARISON: CT chest 07/03/2022.. TECHNIQUE: 2 views of the chest were obtained. FINDINGS: The lungs are hyperinflated but clear of acute process. Heart size and pulmonary vascularity is normal. No gross bony abnormality seen. There is mild scoliosis. XR/XR chest 2V IMPRESSION: Hyperinflated lungs without acute process.
[2023-04-30 18:55] VITALS: BP 133/92; PULSE 88; RESP 18; TEMP 36.8; O2SAT 95; BMI 22.4
--- NOTE | 2023-04-30 18:56 | ED_ITS ---
HPI - General Adult General Chief complaint: Upper Respiratory Symptoms Stated complaint: cough x5 days Time Seen by Provider: 04/30/23 20:34 Source: patient and RN notes reviewed Limitations: no limitations History of Present Illness HPI narrative: 62-year-old male who has a history of COPD, presents complaining of a 4 day history of cough. Patient reports having subjective fevers at home. Cough has been productive with yellowish sputum. He denies any nausea or vomiting. Patient has been using his inhaler as well as nebulizer machine at home with some relief. Because of persistent symptoms the patient presents the emergency department for further evaluation. He is up-to-date on all vaccinations. Unknown if any sick contacts. Patient is otherwise feeling well. Related Data Previous Rx's Medication Instructions Recorded albuterol sulfate 2.5 mg/3 mL 2.5 mg (3 mL) inhalation Q6H PRN 09/15/22 (0.083 %) solution for nebulization shortness of breath or wheezing 30 days #180 mL albuterol sulfate 90 mcg/actuation 2 puff PO Q6H PRN shortness of 09/15/22 aerosol inhaler breath or wheezing 30 days #8.5 grams nicotine (polacrilex) 2 mg gum 2 mg buccal Q2H PRN nicotine 09/22/22 cravings 30 days #100 ea baclofen 20 mg tablet 20 mg PO TID 90 days #270 tabs 04/20/23 fluticasone furoate 100 1 ea PO DAILY #60 ea 04/20/23 mcg-vilanterol 25 mcg/dose inhalation powder (Breo Ellipta) hydroxyzine HCl 25 mg tablet 25 mg PO BEDTIME 14 days #14 tabs 04/20/23 ibuprofen 800 mg tablet 800 mg PO Q6H PRN pain 15 days #60 04/20/23 tabs benzonatate 100 mg capsule 100 mg PO BID PRN cough #10 caps 04/30/23 doxycycline hyclate 100 mg tablet 100 mg PO BID #14 tabs 04/30/23 prednisone 20 mg tablet 40 mg (2 x 20 mg) PO DAILY 5 days 04/30/23 #10 tabs Allergies Allergy/AdvReac Type Severity Reaction Status Date / Time No Known Allergies Allergy Verified 04/30/23 18:58 [No Known Allergies*] Review of Systems Constitutional: Constitutional: Reports chills and Reports fever(s) ENT: Denies nasal congestion and Denies sore throat Cardiovascular: Cardiovascular: Denies dyspnea Respiratory: Respiratory: Denies chest congestion, Reports cough, Denies pain with cough, Denies dyspnea and Reports wheezing Allergic/Immunologic: Allergic/Immunologic: Reports wheezing PMFSH Past Medical History Medical History Pulmonary emphysema Bacterial spinal epidural abscess (~09/2019) Nicotine dependence, cigarettes, uncomplicated Intravenous drug abuse Discitis Postlaminectomy syndrome Surgical History History of colonoscopy History of appendectomy History of tonsillectomy History of lumbar surgery Family History Family History Father Medical history unknown Mother No problems noted. Social History Social History Housing: House Alcohol intake: current Alcohol intake frequency: holidays/special occasions only Alcohol type: beer Patient Tobacco Use Status: Current everyday Tobacco user Tobacco use type: Cigarette Cigarettes Per Day: 2 Years Smoked: onset 16yo, 1ppd x 46yrs, now 5cig/day - 40pyh e-Cigarette/Vaping Use: Never Used Second Hand Smoke Exposure: Yes Substance Use Type: Crack/Cocaine and IV Drugs Advance Directives: No Advance Directives Information Provided: No service: No Current occupational status: unemployed Cognitive needs: No Hearing needs: No Vision needs: Yes (reading glasses) Physical Exam ED Vital Signs: Vital Signs - 24 hr 04/30/23 18:55 04/30/23 20:35 Temperature 98.2 F 98.1 F Pulse Rate 88 85 Respiratory Rate 18 20 Blood Pressure 133/92 H 127/96 H Pulse Oximetry 95 95 Oxygen Delivery Method Room Air Room Air BMI result Body Mass Index 22.4 Const Other: Resting comfortably, speaks full clear sentences. HENMT Other: Oropharynx is moist. Nares are patent. Auditory canals demonstrate pearly white TM. Resp Other: Fine wheezes in the bases bilaterally, otherwise clear throughout. Cardio Rhythm: regular rhythm Extrem Other: No calf tenderness or pedal edema bilaterally. Course Course Course Narrative: This is a rapid medical exam: Additional HPI, ROS, PE not included below will be deferred to primary provider. Patient is a 62-year-old male with history of COPD, HLD presenting to the ED with complaint of fever, body aches, and prod uctive cough since Wednesday. Denies vomiting or diarrhea. Has been taking ibuprofen for his symptoms. Plan: viral swabs, cxr Medications Administered Discontinued Medications Generic Name Dose Route Start Last Admin Trade Name Freq PRN Reason Stop Dose Admin Prednisone 60 mg 04/30/23 20:43 04/30/23 20:47 Prednisone 20 Mg Tablet PO 04/30/23 20:44 60 mg ONCE ONE Administration Medical Decision Making Medical Decision Making MDM Narrative: 62-year-old male who has a history of COPD, persistent cough. Negative viral cultures and no acute findings on chest x-ray. Given the patient's history of COPD, will place on prednisone as well as add doxycycline. Trial of Tessalon Perles for cough. Patient expresses understanding of all discharge instructions and has no further questions at this time. Differential Diagnosis Viral syndrome COPD exacerbation Pneumonia URI Lab Data [facility] Lab Attestation statement: I reviewed the patient's lab results. Labs: Lab Results 04/30/23 Range/Units 19:28 Influenza Type A (PCR) NEGATIVE (Negative) Influenza Type B (PCR) NEGATIVE (Negative) RSV RNA Qual (PCR) NEGATIVE (Negative) SARS-CoV-2 RNA (RT-PCR) NEGATIVE (Negative) Radiology Impression Discussion of test interpretation with radiology: I have reviewed the radiologist's reading. Radiologist Impression: [address] [address] XRay Report Signed Patient: Blaine Dowd MR#: [id number] : 1960 Acct:[id number] Age/Sex: 62 / M ADM Date: 04/30/23 Loc: .ED Attending Dr: Ordering Physician: Thelma Gilbert NP Date of Service: 04/30/23 Procedure(s): XR chest 2V Accession Number(s): [id number] cc: Salinas Barcenas PA-C; Thelma Gilbert NP~ EXAMINATION: XR CHEST CLINICAL INFORMATION: Productive cough and fever COMPARISON: CT chest 07/03/2022.. TECHNIQUE: 2 views of the chest were obtained. FINDINGS: The lungs are hyperinflated but clear of acute process. Heart size and pulmonary vascularity is normal. No gross bony abnormality seen. There is mild scoliosis. XR/XR chest 2V IMPRESSION: Hyperinflated lungs without acute process. Dictated By: Omari Booker MD Signed By: <Electronically signed by Omari Booker MD in OV> 04/30/231929 DD/ 10 TD/TT: Compounder: [facility] Discharge Plan Discharge Clinical Impression: Bronchitis COPD (chronic obstructive pulmonary disease) Qualifiers: COPD type: COPD with acute exacerbation Qualified Code(s): J44.1 - Chronic obstructive pulmonary disease with (acute) exacerbation Patient Disposition: Home, Self-Care Instructions: COPD (Chronic Obstructive Pulmonary Disease) (ED) Additional Instructions: Prednisone as directed. Doxycycline as directed. Finish all antibiotics. Tessalon Perles as directed for cough. Follow-up with your primary care provider. Call this week to schedule a follow- up appointment. Return to the emergency department if you have any worsening of symptoms, or any concerns. Get well soon! Prescriptions: New prednisone 20 mg tablet 40 mg PO DAILY 5 Days Qty: 10 0RF doxycycline hyclate 100 mg tablet 100 mg PO BID Qty: 14 0RF benzonatate 100 mg capsule 100 mg PO BID PRN (Reason: cough) Qty: 10 0RF No Action albuterol sulfate 90 mcg/actuation HFA aerosol inhaler 2 puff PO Q6H PRN (Reason: shortness of breath or wheezing) 30 Days Qty: 8.5 6RF albuterol sulfate 2.5 mg /3 mL (0.083 %) solution for nebulization 2.5 mg inhalation Q6H PRN (Reason: shortness of breath or wheezing) 30 Days Qty: 180 1RF nicotine (polacrilex) 2 mg gum 2 mg buccal Q2H PRN (Reason: nicotine cravings) 30 Days Qty: 100 0RF fluticasone furoate-vilanterol [Breo Ellipta] 100-25 mcg/dose blister with device 1 ea PO DAILY Qty: 60 3RF hydroxyzine HCl 25 mg tablet 25 mg PO BEDTIME 14 Days Qty: 14 1RF ibuprofen 800 mg tablet 800 mg PO Q6H PRN (Reason: pain) 15 Days Qty: 60 3RF baclofen 20 mg tablet 20 mg PO TID 90 Days Qty: 270 1RF Stand Alone Forms: Work/School Release
[2023-04-30 20:11] LABS: Influenza A PCR NEGATIVE (Negative); Influenza B PCR NEGATIVE (Negative); Resp Syncy Virus RNA Qual PCR NEGATIVE (Negative); SARS COV2 PCR INHOUSE NEGATIVE (Negative)
[2023-04-30 20:35] VITALS: BP 127/96; PULSE 85; RESP 20; TEMP 36.7; O2SAT 95
[2023-04-30] MEDS: predniSONE 20 MG TABLET 60 MG PO (20:47)
== END 2023-04-30 21:04 | disposition home or self-care (01) ==
PROVIDERS: Registered Nurse Emergency; Emergency Provider Student in an Organized Health Care Education/Training Program; PCP Physician Assistant
DX: J40 Bronchitis, not specified as acute or chronic (principal); J44.1 Chronic obstructive pulmonary disease with (acute) exacerbation; R05.9 Cough, unspecified; Z20.828 Contact with and (suspected) exposure to other viral communicable diseases; Z20.822 Contact with and (suspected) exposure to COVID-19
CPT/HCPCS: 0241U; 71046; 99282; 99283

== ENCOUNTER 2023-10-26 10:35 | Outpatient (AMB) | payer MEDICARE, SELFPAY ==
[2023-10-26 11:03] VITALS: BP 108/82; PULSE 86; O2SAT 96; BMI 22.2
--- NOTE | 2023-10-26 11:03 | A.OFFPC_ITS ---
Vital Signs 10/26/23 11:03 Height 5 ft 9 in Weight 150 lb 8 oz BMI 22.2 BP 108/82 Blood Pressure Location Lt brachial Position Sitting Pulse 86 Pulse Source Pulse Oximeter Pulse Oximetry (%) 96 Oxygen Delivery Method Room Air Intake Visit Reasons: Annual Exam Intake Note: Patient is here today for a physical. 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: No Accompanied by: Self / Same As Patient Allergies No Known Allergies [No Known Allergies*] Allergy (Verified 10/26/23 11:20) Medication List - Last Reconciled 10/26/23 by Salinas Barcenas PA-C albuterol sulfate 2.5 mg (3 mL) inhalation Q6H PRN 30 days albuterol sulfate 90 mcg/actuation 2 puffs PO Q6H PRN 30 days baclofen 20 mg PO TID 90 days fluticasone furoate-vilanterol 100-25 mcg/dose (Breo Ellipta) 1 ea PO DAILY hydroxyzine HCl 25 mg PO BEDTIME 14 days ibuprofen 800 mg PO Q6H PRN 15 days nicotine (polacrilex) 2 mg buccal Q2H PRN 30 days Tobacco use date assessed: 10/26/23 Dental Screening Dental Screen Date: 10/26/23 Did you have a dental visit in the last 12 months?: No Did you have a dental problem in the last 6 months where you did not have access to dental care?: Yes Was dental information given to patient?: Yes HPI Annual Exam HPI Details Patient is a 63-year-old male here today for routine annual physical.? Patient has a past medical history significant for COPD, tobacco use disorder, lumbar disc disease, prior history of IV drug use (crack cocaine) Currently homeless. living at a hotel. He has been having some personal issues in his personal life. He reports a lot of his relationships with his family members have been torn. Currently looking for a stable apartment. Depression--> he does report having some worsening depression as of late. Does have a dog whom lives with him and give him some emotional support. He now needs a note to support the need for his dog to live with him in his hotel room. .. .. Polysubstance use: Informs me he stopped snorting cocaine. This is unclear .. COPD:? Patient reports his breathing has been fairly stable, unfortunately continues to smoke a couple cigarettes per day. He continues on maintenance inhaler Breo with good effect. Has establish care with a medical physics researcher whom would like to do pulmonary function tests with him. Has not been able to schedule testing. ? He is using nicotine gum which he has find helpful. We did speak about generic Chantix and would like to hold off on this for now. .. Hyperlipidemia: Has a history of elevated total cholesterol. Will recheck fasting lipid panel to assure appropriate total cholesterol and LDL. .. Lumbar disc disease:?Pain Has been fairly stable with p.r.n. use of ibuprofen and baclofen.? He does have a history of lumbar spine surgery due to not effective lumbar disc. Vaccines:? Up-to-date with COVID vaccine, up-to-date with tetanus and pneumonia vaccines, up-to-date flu vaccine. Colon cancer screening: Had colonoscopy in 2019, tubular adenoma polyp found, needed repeat in 3 years. Still considering repeat colonoscopy [facility] Medical History Bacterial spinal epidural abscess (~09/2019) Nicotine dependence, cigarettes, uncomplicated Intravenous drug abuse Discitis Postlaminectomy syndrome Surgical History History of colonoscopy History of appendectomy History of tonsillectomy History of lumbar surgery Family History Father Medical history unknown Mother No problems noted. Social History (Updated 10/26/23 @ 11:31 by Salinas Barcenas PA-C) Housing: House Alcohol intake: current Alcohol intake frequency: holidays/special occasions only Alcohol type: beer Patient Tobacco Use Status: Current everyday Tobacco user Tobacco use type: Cigarette Cigarettes Per Day: 2 Years Smoked: onset 16yo, 1ppd x 46yrs, now 5cig/day - 40pyh e-Cigarette/Vaping Use: Never Used Second Hand Smoke Exposure: Yes Substance Use Type: Crack/Cocaine and IV Drugs service: No Current occupational status: unemployed Cognitive needs: No Hearing needs: No Vision needs: Yes (reading glasses) Questionnaire PHQ-9 Over the last 2 weeks, how often have you been bothered by any of the following problems? 1. Little interest or pleasure in doing things: not at all 2. Feeling down, depressed, or hopeless: not at all 3. Trouble falling or staying asleep, or sleeping too much: not at all 4. Feeling tired or having little energy: not at all 5. Poor appetite or overeating: not at all 6. Feeling bad about yourself - or that you are a failure or have let yourself or your family down: not at all 7. Trouble concentrating on things, such as reading the newspaper or watching television: not at all 8. Moving or speaking so slowly that other people could have noticed. Or the opposite - being so fidgety or restless that you have been moving around a lot more than usual: not at all 9. Thoughts that you would be better off or of hurting yourself in some way: not at all Total score: 0 Depression Screening Interpretation: Negative Depression Screening Done: Yes 36377 - PHQ-9 Billing: Yes Source: Developed by Drs. Micheal Alba, Dorothy Carl, Nicolas Haq and colleagues, with an educational manny from [employer]. Thrive Questionnaire Date Thrive assessed: 10/26/23 I am a: Patient What is your living situation today?: I do not have a steady places to live I am staying at a hotel ([facility]) Within the past 12 months, did the food you bought not last and you didn't have the money to get more?: Sometimes True Within the past 12 months, did you worry whether your food would run out before you got money to buy more?: Sometimes True Do you have trouble paying for medicines?: Yes Do you have trouble getting transportation to medical appointments?: No Do you have trouble paying your heating and electricity bill?: No Do you have trouble taking care of your child, family member or friend?: No Do you have trouble with day-to-day activities such as bathing, preparing meals, shopping, managing finances, etc.?: No Are you currently unemployed and looking for a job?: No Are you interested in more education?: No Please select the resources that you would like help with: None Currently or been in a relationship where the following occur: no concerns reported THRIVE Score: 3 AUDIT C Alcohol Use Questionnaire (AUDIT-C) 1. How often do you have a drink containing alcohol?: Monthly or less 2. How many drinks containing alcohol do you have on a typical day when you are drinking?: 1 or 2 3. How often do you have six or more drinks on one occasion?: Never Total Score: 1 JONES-7 AMB Questionnaire JONES-7 Date JONES - 7 assessed: 10/26/23 Feeling nervous, anxious, or on edge: 0 = Not at all Not being able to stop or control worryin = Not at all Worrying too much about different things: 0 = Not at all Trouble relaxin = Not at all Being so restless that it is hard to sit still: 0 = Not at all Becoming easily annoyed or irritable: 0 = Not at all Feeling afraid as if something awful might happen: 0 = Not at all Total JOENS-7 score (0-4 normal; 5-9 mild; 10-14 moderate; 15-21 severe): 0 Source: Developed by Drs. Micheal Alba, Dorothy Carl, Nicolas Haq and colleagues, with an educational manny from [employer]. JONES-7 Assessment Billing JONES-7 Assessment Tool: JONES-7 Assessment 82097 Review of Systems Const Denies body aches, Denies chills, Denies excessive sweating, Denies fatigue, Denies fever(s) and Denies headache(s) Eyes Denies blurry vision ENT Denies dysphagia, Denies vertigo, Denies dizziness, Denies headache(s), Denies hearing loss and Denies tinnitus Card Denies chest pain, Denies chest pain with activity, Denies syncope, Denies irregular heart rhythm and Denies dyspnea Resp Denies chest congestion, Denies cough, Denies hemoptysis, Denies dyspnea and Denies wheezing GI Denies abdominal pain, Denies melena, Denies hematochezia, Denies coffee ground emesis, Denies dysphagia, Denies diarrhea, Denies nausea and Denies vomiting Denies difficulty urinating, Denies dysuria, Denies urinary frequency, Denies urinary hesitancy and Denies urinary urgency Musc Denies arthralgias, Denies limited range of motion, Denies muscle cramps and Denies muscle weakness Skin/Breast Denies rash and Denies skin ulcer Neuro Denies Abnormal speech present, Denies confusion, Denies vertigo, Denies dizziness, Denies syncope, Denies headache(s), Denies memory loss and Denies seizure-like activity Psych Denies anxiety, Denies confusion, Denies depression, Denies memory loss, Denies panic attacks and Denies paranoia Endo Denies excessive sweating, Denies fatigue, Denies flushing, Denies polydipsia and Denies polyuria Aller/Immun Denies wheezing Physical exam (Primary Care) Vital Signs: Last Vital Signs Pulse 86 10/26/23 11:03 BP 108/82 10/26/23 11:03 Pulse Ox 96 10/26/23 11:03 Oxygen Delivery Method Room Air 10/26/23 11:03 BMI result Body Mass Index 22.2 Tobacco/Smoking Status: Tobacco use Status Tobacco use date assessed 10/26/23 10/26/23 11:05 Patient Tobacco Use Status Current everyday Tobacco 10/26/23 11:31 Tobacco use type Cigarette 10/26/23 11:31 e-Cigarette/Vaping Use Never Used 10/26/23 11:31 Are you ready to quit: No Tobacco cessation counseling provided: Yes Items discussed: Nicotine replacement Relapse Prevention: discussed the importance of a supportive environment, discussed negative mood or depression after quitting, weight gain after smoking is common and discussed dietary, exercise and/or lifestyle changes Number of minutes spent counselin CPT code: 17966 - 4-10 Minutes PHQ-9: PHQ-9 Score PHQ-9: Total score 0 10/26/23 11:23 Depression Screening Interpretation: Negative Thrive Assessment: Date of Thrive Assessment Date Thrive assessed 10/26/23 10/26/23 11:05 Currently or been in a relationship where the following occur: no concerns reported Const General: cooperative, comfortable, no acute distress, alert and awake; No confusion Orientation/consciousness: oriented to person, oriented to place, patient oriented x3 and No confusion HENMT Head: Yes normocephalic Ears: external ears normal and TM's normal bilaterally Face and sinus: No sinus tenderness Mouth: Normal oral and palatal mucosa present and tongue normal Teeth and gingiva: dentition normal and gingiva normal Throat: Yes posterior oropharynx normal, Yes tonsils normal and Yes uvula midline Eyes Conjunctivae: conjunctivae normal Sclerae: sclerae normal Pupils: Equal, round and reactive pupils present EOM: EOMs intact bilaterally Direct Ophthalmoscopy: No no photophobia Neck Neck: Yes no lymphadenopathy, No tender and Yes no JVD Thyroid: Thyroid normal Carotids: no bruits Chest Chest palpation & inspection: no tenderness Resp Effort & Inspection: normal respiratory effort, no audible wheezes, not labored and no stridor Auscultation: no crackles, no rales, no rhonchi and no wheezes Cardio Jugular venous distension: no JVD Rate: regular rate, not bradycardic and not tachycardic Rhythm: regular rhythm Bruits: no carotid bruits Peripheral pulses: Peripheral pulses 2+ throughout GI Inspection: Yes normal to inspection, No abdominal wall ecchymosis and No visible herniation Palpation (GI): Soft to palpation, nontender, no guarding, not rigid and No hepatosplenomegaly present Auscultation: normoactive bowel sounds General: Yes no CVA tenderness Back/Spine/Pelvis Back: no CVA tenderness and No back tenderness Cervical Spine: cervical ROM normal Thoracic/Lumbar Spine: thoracic and lumbar spine normal to inspection, straight leg raise negative bilaterally, No thoraco-lumbar ROM limited and No lumbar spinal tenderness Skin Lesions: no lesions Rashes: no rashes Wounds: no wounds Neuro General: oriented to person, oriented to place, patient oriented x3, CN's II-XI intact bilaterally and No confusion Cranial nerves: Yes Equal, round and reactive pupils present and Yes Normal accommodation reflex present Cognition (Neuro): normal cognition Speech: No Abnormal speech present Gait exam (Neuro): Normal gait present Motor exam (neuro): 5/5 motor strength present throughout Extrem Right upper extremity: full ROM; no cyanosis Left upper extremity: full ROM; no cyanosis Right lower extremity: no edema Left lower extremity: no edema Psych Appearance: grossly normal Mental Status: mental status grossly normal Affect: normal affect Attitude: cooperative Thought process: Normal thought process present Assessment and Plan Assessment & Plan (1) Annual physical exam: Code(s): Z00.00 - Encounter for general adult medical examination without abnormal findings (2) COPD (chronic obstructive pulmonary disease): Comment: THIS GENTLEMAN DOES HAVE MODERATE AT LEAST SEVERE CHRONIC OBSTRUCTIVE PULMONARY DISORDER., PER PFT IN 2011 HE HAS REMAINED RELATIVELY STABLE, BUT SHORT OF BREATH ON EXERTION. TX : CONTINUE TO USE BREO 100-25 1 INHALATION DAILY ALBUTEROL HFA 2 PUFFS Q 4-6 HOURS P.R.N. AND ALTERNATIVELY ALBUTEROL 2.5 MG SOLUTION IN THE NEBULIZER P.R.N.. * REPEAT PULMONARY FUNCTION TEST IS ORDERED, AND WILL RE-EVALUATE AFTER THE TEST IF HE NEEDS ANY ADDITIONAL MEDICINE. Code(s): J44.9 - Chronic obstructive pulmonary disease, unspecified Qualifiers: COPD type: COPD with acute exacerbation Qualified Code(s): J44.1 - Chronic obstructive pulmonary disease with (acute) exacerbation Plan: Patient does continue to have shortness of breath and wheeze at times worse at night. Does use an albuterol inhaler and maintenance Breo inhaler with decent affect. Most recent CT chest showing mild emphysema. Unfortunately continues to smoke few cigarettes per day and does understand he needs to completely quit (3) Nicotine dependence, cigarettes, uncomplicated: Comment: (current smoker, onset 16yo, 1ppd x 46yrs, now 1/4ppd - 40pyh) at present he is smoking about 5 cigarettes a day, I counselled him a that he needs to quit completely. he will continue to participate in annual lung screening program. Code(s): F17.210 - Nicotine dependence, cigarettes, uncomplicated Plan: He does understand he needs to quit smoking though has found it very difficult to do so. Has tried nicotine replacement in the past though has not been successful (4) Postlaminectomy syndrome: Code(s): M96.1 - Postlaminectomy syndrome, not elsewhere classified Plan: Patient does have history of acute infection (epidural abscess) is lumbar spine due to IV drug use and is status post laminectomy. He still does use as needed ibuprofen 800 and baclofen for his pain which works well. (5) Screening for diabetes mellitus (DM): Code(s): Z13.1 - Encounter for screening for diabetes mellitus (6) HLD (hyperlipidemia): Code(s): E78.5 - Hyperlipidemia, unspecified Qualifiers: Hyperlipidemia type: mixed hyperlipidemia Qualified Code(s): E78.2 - Mixed hyperlipidemia Plan: HAs a history of high cholesterol . WIll recheck a fasting lipid panel (7) MDD (major depressive disorder), recurrent episode, moderate: Code(s): F33.1 - Major depressive disorder, recurrent, moderate Plan: As per HPI patient has been having some worsening depression due to personal issues in his family. He is now homeless living in a hotel room. He is looking for some stable housing. He does have a dog whom lives with him that offer some some emotional support. (8) Tubular adenoma of colon: Code(s): D12.6 - Benign neoplasm of colon, unspecified Plan: He is in need of a repeat colonoscopy due to tubular adenoma polyp. At this time he is trying to get stable housing in his not interested in colonoscopy procedure. (9) Intravenous drug abuse: Code(s): F19.10 - Other psychoactive substance abuse, uncomplicated Plan: History of IV drug use , currently homeless, he informs me he has not using anymore IV drugs though this is unclear. (10) Homeless: Code(s): Z59.00 - Homelessness unspecified Plan: Patient reports he is now homeless and living hotel. He would like assistance on trying to get a affordable housing. Medications: Refilled fluticasone furoate-vilanterol 100-25 mcg/dose (Breo Ellipta) 1 ea PO DAILY 60 ea 3RF J44.9 - Chronic obstructive pulmonary disease, unspecified ibuprofen 800 mg PO Q6H PRN 60 tabs 3RF pain 15 days M96.1 - Postlaminectomy syndrome, not elsewhere classified Patient Instructions: Goal: Get stable housing Barriers: Mental health issues Coding Level of Care Code Est Pt Prev Care 40-64y(14469) Diagnoses Annual physical exam Z00.00 Centrilobular emphysema J44.1 COPD type: COPD with acute exacerbation Nicotine dependence, cigarettes, uncomplicated F17.210 Postlaminectomy syndrome M96.1 Screening for diabetes mellitus (DM) Z13.1 Mixed hyperlipidemia E78.2 Hyperlipidemia type: mixed hyperlipidemia MDD (major depressive disorder), recurrent episode, moderate F33.1 Tubular adenoma of colon D12.6 Intravenous drug abuse F19.10 Homeless Z59.00 Additional Codes JONES-7 Assessment Billing - JONES-7 Assessment Tool: JONES-7 Assessment 70469 ([id number]) Vital Signs *Quality* - CPT code: 68016 - 4-10 Minutes ([id number])
== END 2023-10-26 11:44 | disposition home or self-care (01) ==
PROVIDERS: PCP Physician Assistant; Visit Provider Physician Assistant
DX: Z00.00 Encounter for general adult medical examination without abnormal findings (principal); J44.1 Chronic obstructive pulmonary disease with (acute) exacerbation; F33.1 Major depressive disorder, recurrent, moderate; F19.10 Other psychoactive substance abuse, uncomplicated; F17.210 Nicotine dependence, cigarettes, uncomplicated; M96.1 Postlaminectomy syndrome, not elsewhere classified; Z59.00 Homelessness unspecified; Z13.1 Encounter for screening for diabetes mellitus; E78.2 Mixed hyperlipidemia; D12.6 Benign neoplasm of colon, unspecified
CPT/HCPCS: 99396

== ENCOUNTER 2024-01-27 14:48 | Outpatient (AMB) | payer MEDICARE, SELFPAY ==
--- NOTE | 2024-01-27 14:54 | A.OFFPC_ITS ---
Vital Signs 01/27/24 15:02 Height 5 ft 9 in Weight 149 lb BMI 22.0 BP 120/88 Blood Pressure Location Lt brachial Position Sitting Pulse 75 Pulse Source Pulse Oximeter Pulse Oximetry (%) 95 Oxygen Delivery Method Room Air Intake Visit Reasons: f/u labs / COPD Energy Rater Required: No Accompanied by: Self / Same As Patient Allergies No Known Allergies [No Known Allergies*] Allergy (Verified 01/27/24 15:13) Medication List - Last Reconciled 01/27/24 by Salinas Barcenas PA-C albuterol sulfate 2.5 mg (3 mL) inhalation Q6H PRN 30 days albuterol sulfate 90 mcg/actuation 2 puffs PO Q6H PRN 30 days baclofen 20 mg PO TID 90 days fluticasone furoate-vilanterol 100-25 mcg/dose (Breo Ellipta) 1 ea PO DAILY hydroxyzine HCl 25 mg PO BEDTIME 14 days ibuprofen 800 mg PO Q6H PRN 15 days nicotine (polacrilex) 2 mg buccal Q2H PRN 30 days Tobacco use date assessed: 10/26/23 Dental Screening Dental Screen Date: 10/26/23 HPI f/u labs / COPD HPI Details Patient is a 63-year-old male here today for routine annual physical.? Patient has a past medical history significant for COPD, tobacco use disorder, lumbar disc disease, prior history of IV drug use (crack cocaine) Currently homeless. living at a hotel and with family members. He has been having some personal issues in his personal life. He reports a lot of his relationships with his family members have been torn. Currently looking for a stable apartment. Depression--> he does report having some worsening depression as of late. Does have a dog whom lives with him and give him some emotional support. .. Polysubstance use: Informs me he stopped snorting cocaine. This is unclear .. COPD:? Patient reports his breathing has been fairly stable, unfortunately continues to smoke a couple cigarettes per day. He continues on maintenance inhaler Breo with good effect. ? He is using nicotine gum which he has find helpful. We did speak about generic Chantix and would like to hold off on this for now. .. Hyperlipidemia: Has a history of elevated total cholesterol. Will recheck fasting lipid panel to assure appropriate total cholesterol and LDL. .. Lumbar disc disease:?Pain Has been fairly stable with p.r.n. use of ibuprofen and baclofen.? He does have a history of lumbar spine surgery due to not effective lumbar disc. [facility] Medical History Bacterial spinal epidural abscess (~09/2019) Nicotine dependence, cigarettes, uncomplicated Intravenous drug abuse Discitis Postlaminectomy syndrome Surgical History History of colonoscopy History of appendectomy History of tonsillectomy History of lumbar surgery Family History Father Medical history unknown Mother No problems noted. Social History Housing: House Alcohol intake: current Alcohol intake frequency: holidays/special occasions only Alcohol type: beer Patient Tobacco Use Status: Current everyday Tobacco user Tobacco use type: Cigarette Cigarettes Per Day: 2 Years Smoked: onset 16yo, 1ppd x 46yrs, now 5cig/day - 40pyh e-Cigarette/Vaping Use: Never Used Second Hand Smoke Exposure: Yes Substance Use Type: Crack/Cocaine and IV Drugs service: No Current occupational status: unemployed Cognitive needs: No Hearing needs: No Vision needs: Yes (reading glasses) Questionnaire Thrive Questionnaire Date Thrive assessed: 10/26/23 Are you currently unemployed and looking for a job?: Yes JONES-7 AMB Questionnaire JONES-7 Date JONES - 7 assessed: 10/26/23 Source: Developed by Drs. Micheal Alba, Dorothy Carl, Nicolas Haq and colleagues, with an educational manny from [employer]. Review of Systems Const Denies headache(s) Eyes Denies loss of vision ENT Denies vertigo, Denies dizziness, Denies headache(s) and Denies sore throat Card Denies chest pain, Denies leg edema and Denies lightheadedness Resp Denies cough, Denies hemoptysis and Denies wheezing GI Denies abdominal pain, Denies melena, Denies constipation, Denies diarrhea and Denies vomiting Denies dysuria, Denies urinary frequency and Denies urinary urgency Musc Denies arthralgias, Denies joint swelling, Denies numbness and Denies tingling Neuro Denies Abnormal speech present, Denies behavioral changes, Denies vertigo, Denies dizziness, Denies headache(s), Denies loss of vision, Denies memory loss, Denies numbness and Denies tingling Psych Denies anxiety, Denies behavioral changes, Denies depression, Denies memory loss and Denies panic attacks Blake/Lymph Denies easy bleeding and Denies easy bruising Aller/Immun Denies wheezing Physical exam (Primary Care) Vital Signs: Last Vital Signs Pulse 75 01/27/24 15:02 BP 120/88 01/27/24 15:02 Pulse Ox 95 01/27/24 15:02 Oxygen Delivery Method Room Air 01/27/24 15:02 BMI result Body Mass Index 22.0 Tobacco/Smoking Status: Tobacco use Status Tobacco use date assessed 10/26/23 01/27/24 14:55 Patient Tobacco Use Status Current everyday Tobacco 01/27/24 14:55 Tobacco use type Cigarette 01/27/24 14:55 e-Cigarette/Vaping Use Never Used 01/27/24 14:55 Are you ready to quit: No Tobacco cessation counseling provided: Yes Items discussed: Nicotine replacement and QuitWorks Relapse Prevention: discussed the importance of a supportive environment, discussed negative mood or depression after quitting, weight gain after smoking is common and discussed dietary, exercise and/or lifestyle changes Number of minutes spent counselin CPT code: 80237 - 4-10 Minutes Thrive Assessment: Date of Thrive Assessment Date Thrive assessed 10/26/23 01/27/24 14:55 Const General: healthy appearing, no acute distress, alert and awake Nutritional Appearance: well nourished Orientation/consciousness: oriented to person, oriented to place and oriented to time HENPR Ears: TM's normal bilaterally General nose exam: Normal nasal mucous membranes and turbinates present Eyes Conjunctivae: conjunctivae normal Sclerae: sclerae normal Pupils: Equal, round and reactive pupils present Neck Neck: Yes no lymphadenopathy and Yes no JVD Thyroid: Thyroid normal Carotids: no bruits Resp Effort & Inspection: normal respiratory effort and not tachypneic Auscultation: no crackles, no rales, no rhonchi and no wheezes Cardio Rate: regular rate Rhythm: regular rhythm Heart sounds: no murmurs and normal S1 and S2 GI Palpation (GI): Soft to palpation, nontender, no hepatomegaly and no splenomegaly Auscultation: normal bowel sounds Skin General skin exam: no rashes or lesions noted and dry skin Neuro General: oriented to person, oriented to place and oriented to time Cranial nerves: Yes Equal, round and reactive pupils present Speech: No Abnormal speech present Gait exam (Neuro): Normal gait present Motor exam (neuro): no tremor noted Extrem Right upper extremity: full ROM Left upper extremity: full ROM Right lower extremity: full ROM; no edema Left lower extremity: full ROM; no edema Psych Mental Status: mental status grossly normal Speech and movement: Normal speech and movement present Affect: normal affect Attitude: cooperative Thought process: Normal thought process present Assessment and Plan Assessment & Plan (1) COPD (chronic obstructive pulmonary disease): Comment: THIS GENTLEMAN DOES HAVE MODERATE AT LEAST SEVERE CHRONIC OBSTRUCTIVE PULMONARY DISORDER., PER PFT IN 2011 HE HAS REMAINED RELATIVELY STABLE, BUT SHORT OF BREATH ON EXERTION. TX : CONTINUE TO USE BREO 100-25 1 INHALATION DAILY ALBUTEROL HFA 2 PUFFS Q 4-6 HOURS P.R.N. AND ALTERNATIVELY ALBUTEROL 2.5 MG SOLUTION IN THE NEBULIZER P.R.N.. * REPEAT PULMONARY FUNCTION TEST IS ORDERED, AND WILL RE-EVALUATE AFTER THE TEST IF HE NEEDS ANY ADDITIONAL MEDICINE. Code(s): J44.9 - Chronic obstructive pulmonary disease, unspecified Qualifiers: COPD type: COPD with acute exacerbation Qualified Code(s): J44.1 - Chronic obstructive pulmonary disease with (acute) exacerbation Plan: Patient does continue to have shortness of breath and wheeze at times worse at night. Does use an albuterol inhaler and maintenance Breo inhaler with decent affect. Most recent CT chest showing mild emphysema. Unfortunately continues to smoke few cigarettes per day and does understand he needs to completely quit (2) Nicotine dependence, cigarettes, uncomplicated: Comment: (current smoker, onset 16yo, 1ppd x 46yrs, now 1/4ppd - 40pyh) at present he is smoking about 5 cigarettes a day, I counselled him a that he needs to quit completely. he will continue to participate in annual lung screening program. Code(s): F17.210 - Nicotine dependence, cigarettes, uncomplicated Plan: He does understand he needs to quit smoking though has found it very difficult to do so. Has tried nicotine replacement in the past though has not been successful (3) HLD (hyperlipidemia): Code(s): E78.5 - Hyperlipidemia, unspecified Qualifiers: Hyperlipidemia type: mixed hyperlipidemia Qualified Code(s): E78.2 - M ixed hyperlipidemia Plan: Has a history of high cholesterol . WIll recheck a fasting lipid panel with goal LDL to be below 130 (4) MDD (major depressive disorder), recurrent episode, moderate: Code(s): F33.1 - Major depressive disorder, recurrent, moderate Plan: As per HPI patient has been having some worsening depression due to personal issues in his family. He is now homeless living in a hotel room. He is looking for some stable housing. He does have a dog whom lives with him that offer some some emotional support. (5) Homeless: Code(s): Z59.00 - Homelessness unspecified Plan: Patient reports he is now homeless and living hotel. He would like assistance on trying to get a affordable housing. Medications: Refilled fluticasone furoate-vilanterol 100-25 mcg/dose (Breo Ellipta) 1 ea PO DAILY 60 ea 3RF J44.9 - Chronic obstructive pulmonary disease, unspecified albuterol sulfate 90 mcg/actuation 2 puffs PO Q6H PRN 8.5 grams 6RF shortness of breath or wheezing 30 days J43.2 - Centrilobular emphysema albuterol sulfate 2.5 mg (3 mL) inhalation Q6H 30 days PRN 180 mL 2RF shortness of breath or wheezing J43.2 - Centrilobular emphysema albuterol sulfate 90 mcg/actuation 2 puffs PO Q6H 30 days PRN 8.5 grams 6RF shortness of breath or wheezing J43.2 - Centrilobular emphysema albuterol sulfate 2.5 mg (3 mL) inhalation Q6H PRN 180 mL 2RF shortness of breath or wheezing 30 days J43.2 - Centrilobular emphysema Coding Level of Care Code Est Pt Level 4 (29440) Diagnoses Centrilobular emphysema J44.1 COPD type: COPD with acute exacerbation Nicotine dependence, cigarettes, uncomplicated F17.210 Mixed hyperlipidemia E78.2 Hyperlipidemia type: mixed hyperlipidemia MDD (major depressive disorder), recurrent episode, moderate F33.1 Homeless Z59.00 Additional Codes Vital Signs *Quality* - CPT code: 19715 - 4-10 Minutes ([id number])
[2024-01-27 15:02] VITALS: BP 120/88; PULSE 75; O2SAT 95; BMI 22.0
== END 2024-01-27 15:31 | disposition home or self-care (01) ==
PROVIDERS: PCP Physician Assistant; Visit Provider Physician Assistant
DX: J44.1 Chronic obstructive pulmonary disease with (acute) exacerbation (principal); F17.210 Nicotine dependence, cigarettes, uncomplicated; E78.2 Mixed hyperlipidemia; F33.1 Major depressive disorder, recurrent, moderate; Z59.00 Homelessness unspecified

== ENCOUNTER → 2024-01-27 14:48 | Outpatient (BNVA) | payer MEDICARE, SELFPAY | PROVIDERS: PCP Physician Assistant; Visit Provider Physician Assistant | DX: J44.1 Chronic obstructive pulmonary disease with (acute) exacerbation (principal); E78.2 Mixed hyperlipidemia; F33.1 Major depressive disorder, recurrent, moderate; F17.210 Nicotine dependence, cigarettes, uncomplicated; Z59.00 Homelessness unspecified | CPT/HCPCS: 99212 ==

== ENCOUNTER 2024-04-27 14:40 | Outpatient (AMB) | payer MEDICARE, SELFPAY ==
--- OUTSIDE RECORDS SUMMARY | 2024-04-27 14:41 | XMS_ITS | Patient Health Record ---
Author Organization [facility] Address [address] [place] [phone] Support Name Relationship Address Phone Penny Perez Emergency Contact Unknown Blaine Dowd Guarantor Unknown Unavailable Reason For Referral No Information Plan Of Treatment No Information
--- NOTE | 2024-04-27 14:50 | A.OFFPC_ITS ---
Vital Signs 04/27/24 15:03 Height 5 ft 9 in Weight 16 lb BMI 2.4 BP 122/74 Blood Pressure Location Lt brachial Position Sitting Pulse 81 Pulse Source Pulse Oximeter Pulse Oximetry (%) 93 Oxygen Delivery Method Room Air Intake Visit Reasons: f/u COPD Rock Picker Required: No Accompanied by: Self / Same As Patient Allergies No Known Allergies [No Known Allergies*] Allergy (Verified 04/27/24 15:05) Medication List - Last Reconciled 04/27/24 by Salinas Barcenas PA-C albuterol sulfate 90 mcg/actuation 2 puffs PO Q6H PRN 30 days albuterol sulfate 2.5 mg (3 mL) inhalation Q6H PRN 30 days baclofen 20 mg PO TID 90 days fluticasone furoate-vilanterol 100-25 mcg/dose (Breo Ellipta) 1 ea PO DAILY hydroxyzine HCl 25 mg PO BEDTIME 14 days ibuprofen 800 mg PO Q6H PRN 15 days nicotine (polacrilex) 2 mg buccal Q2H PRN 30 days Tobacco use date assessed: 10/26/23 Dental Screening Dental Screen Date: 10/26/23 HPI f/u COPD HPI Details Patient is a 63-year-old male here today for a follow-up visit. .? Patient has a past medical history si gnificant for COPD, tobacco use disorder, lumbar disc disease, Currently homeless. living at a hotel and with family members. He has been having some personal issues in his personal life. He reports a lot of his relationships with his family members have been torn. Currently looking for a stable apartment. Depression--> he does report having some worsening depression as of late. Does have a dog whom lives with him and give him some emotional support. . .. COPD:? Patient reports his breathing has been fairly stable, unfortunately continues to smoke a couple cigarettes per day. He continues on maintenance inhaler Breo with good effect. ? He is using nicotine gum which he has find helpful. We did speak about generic Chantix and would like to hold off on this for now. .. Hyperlipidemia: Has a history of elevated total cholesterol. Will recheck fasting lipid panel to assure appropriate total cholesterol and LDL. .. Lumbar disc disease:?Pain Has been fairly stable with p.r.n. use of ibuprofen and baclofen.? He does have a history of lumbar spine surgery due to not effective lumbar disc. [facility] Medical History Bacterial spinal epidural abscess (~09/2019) Nicotine dependence, cigarettes, uncomplicated Intravenous drug abuse Discitis Postlaminectomy syndrome Surgical History History of colonoscopy History of appendectomy History of tonsillectomy History of lumbar surgery Family History Father Medical history unknown Mother No problems noted. Social History Housing: House Alcohol intake: current Alcohol intake frequency: holidays/special occasions only Alcohol type: beer Patient Tobacco Use Status: Current everyday Tobacco user Tobacco use type: Cigarette Cigarettes Per Day: 2 Years Smoked: onset 16yo, 1ppd x 46yrs, now 5cig/day - 40pyh Packs per year/per ci.00 e-Cigarette/Vaping Use: Never Used Second Hand Smoke Exposure: Yes Substance Use Type: Crack/Cocaine and IV Drugs service: No Current occupational status: unemployed Cognitive needs: No Hearing needs: No Vision needs: Yes (reading glasses) Questionnaire Thrive Questionnaire Date Thrive assessed: 10/26/23 Are you currently unemployed and looking for a job?: Yes AUDIT C Alcohol Use Questionnaire (AUDIT-C) 2. How many drinks containing alcohol do you have on a typical day when you are drinking?: 1 or 2 3. How often do you have six or more drinks on one occasion?: Never Total Score: 0 JONES-7 AMB Questionnaire JONES-7 Date JONES - 7 assessed: 10/26/23 Source: Developed by Drs. Micheal Alba, Dorothy Carl, Nicolas Haq and colleagues, with an educational manny from [employer]. Review of Systems Const Denies headache(s) Eyes Denies loss of vision ENT Denies vertigo, Denies dizziness, Denies headache(s) and Denies sore throat Card Denies chest pain, Denies leg edema and Denies lightheadedness Resp Denies cough, Denies hemoptysis and Denies wheezing GI Denies abdominal pain, Denies melena, Denies constipation, Denies diarrhea and Denies vomiting Denies dysuria, Denies urinary frequency and Denies urinary urgency Musc Denies arthralgias, Denies joint swelling, Denies numbness and Denies tingling Neuro Denies Abnormal speech present, Denies behavioral changes, Denies vertigo, Denies dizziness, Denies headache(s), Denies loss of vision, Denies memory loss, Denies numbness and Denies tingling Psych Denies anxiety, Denies behavioral changes, Denies depression, Denies memory loss and Denies panic attacks Blake/Lymph Denies easy bleeding and Denies easy bruising Aller/Immun Denies wheezing Physical exam (Primary Care) Vital Signs: Last Vital Signs Pulse 81 04/27/24 15:03 BP 122/74 04/27/24 15:03 Pulse Ox 93 04/27/24 15:03 Oxygen Delivery Method Room Air 04/27/24 15:03 BMI result Body Mass Index 2.4 Tobacco/Smoking Status: Tobacco use Status Tobacco use date assessed 10/26/23 04/27/24 14:50 Patient Tobacco Use Status Current everyday Tobacco 04/27/24 14:50 Tobacco use type Cigarette 04/27/24 14:50 e-Cigarette/Vaping Use Never Used 04/27/24 14:50 Thrive Assessment: Date of Thrive Assessment Date Thrive assessed 10/26/23 04/27/24 14:50 Const General: healthy appearing, no acute distress, alert and awake Nutritional Appearance: well nourished Orientation/consciousness: oriented to person, oriented to place and oriented to time HENMT Ears: TM's normal bilaterally General nose exam: Normal nasal mucous membranes and turbinates present Eyes Conjunctivae: conjunctivae normal Sclerae: sclerae normal Pupils: Equal, round and reactive pupils present Neck Neck: Yes no lymphadenopathy and Yes no JVD Thyroid: Thyroid normal Carotids: no bruits Resp Effort & Inspection: normal respiratory effort and not tachypneic Auscultation: no crackles, no rales, no rhonchi and no wheezes Cardio Rate: regular rate Rhythm: regular rhythm Heart sounds: no murmurs and normal S1 and S2 GI Palpation (GI): Soft to palpation, nontender, no hepatomegaly and no splenomegaly Auscultation: normal bowel sounds Skin General skin exam: no rashes or lesions noted and dry skin Neuro General: oriented to person, oriented to place and oriented to time Cranial nerves: Yes Equal, round and reactive pupils present Speech: No Abnormal speech present Gait exam (Neuro): Normal gait present Motor exam (neuro): no tremor noted Extrem Right upper extremity: full ROM Left upper extremity: full ROM Right lower extremity: full ROM; no edema Left lower extremity: full ROM; no edema Psych Mental Status: mental status grossly normal Speech and movement: Normal speech and movement present Affect: normal affect Attitude: cooperative Thought process: Normal thought process present Coding Level of Care Code Est Pt Level 4 (46485) Diagnoses Centrilobular emphysema J44.1 COPD type: COPD with acute exacerbation Mixed hyperlipidemia E78.2 Hyperlipidemia type: mixed hyperlipidemia Nicotine dependence, cigarettes, uncomplicated F17.210 Homeless Z59.00 Assessment & Plan Assessment & Plan (1) COPD (chronic obstructive pulmonary disease): Comment: THIS GENTLEMAN DOES HAVE MODERATE AT LEAST SEVERE CHRONIC OBSTRUCTIVE PULMONARY DISORDER., PER PFT IN 2012 HE HAS REMAINED RELATIVELY STABLE, BUT SHORT OF BREATH ON EXERTION. TX : CONTINUE TO USE BREO 100-25 1 INHALATION DAILY ALBUTEROL HFA 2 PUFFS Q 4-6 HOURS P.R.N. AND ALTERNATIVELY ALBUTEROL 2.5 MG SOLUTION IN THE NEBULIZER P.R.N.. * REPEAT PULMONARY FUNCTION TEST IS ORDERED, AND WILL RE-EVALUATE AFTER THE TEST IF HE NEEDS ANY ADDITIONAL MEDICINE. Code(s): J44.9 - Chronic obstructive pulmonary disease, unspecified Category: Medical Qualifiers: COPD type: COPD with acute exacerbation Qualified Code(s): J44.1 - Chronic obstructive pulmonary disease with (acute) exacerbation Plan: Needs to follow [facility] pul[facility]ology. He reports his breathing has been pretty stable with maintenance inhaler and p.r.n. use of his albuterol inhaler ne bulizer. He unfortunately still smokes from time to time and does understand he needs to completely quit smoking. (2) HLD (hyperlipidemia): Code(s): E78.5 - Hyperlipidemia, unspecified Category: Medical Qualifiers: Hyperlipidemia type: mixed hyperlipidemia Qualified Code(s): E78.2 - Mixed hyperlipidemia Plan: Has not had fasting labs in quite some time. He promises to do some fasting labs before upcoming annual physical. Goal LDL to be below 130 (3) Nicotine dependence, cigarettes, uncomplicated: Comment: (current smoker, onset 16yo, 1ppd x 46yrs, now 1/4ppd - 40pyh) at present he is smoking about 5 cigarettes a day, I counselled him a that he needs to quit completely. he will continue to participate in annual lung screening program. Code(s): F17.210 - Nicotine dependence, cigarettes, uncomplicated Category: Medical Plan: As above patient does understand he needs to completely quit smoking. He does report having access to nicotine replacement already. (4) Homeless: Code(s): Z59.00 - Homelessness unspecified Category: Social Hx Plan: Currently living in a hotel room and looking for affordable housing. Orders: Orders Prostate Specific Antigen Scr Today E78.2 - Mixed hyperlipidemia, Z12.5 - Encounter for screening for malignant neoplasm of prostate Lipid Panel Today E78.2 - Mixed hyperlipidemia Comprehensive [place]. Panel Fast Today E78.2 - Mixed hyperlipidemia Complete Blood Count no Diff Today E78.2 - Mixed hyperlipidemia Medications: Refilled albuterol sulfate 2.5 mg (3 mL) inhalation Q6H PRN 180 mL 2RF shortness of breath or wheezing 30 days J43.2 - Centrilobular emphysema
[2024-04-27 15:03] VITALS: BP 122/74; PULSE 81; O2SAT 93
== END 2024-04-27 15:21 | disposition home or self-care (01) ==
PROVIDERS: PCP Physician Assistant; Visit Provider Physician Assistant
DX: J44.1 Chronic obstructive pulmonary disease with (acute) exacerbation (principal); E78.2 Mixed hyperlipidemia; F17.210 Nicotine dependence, cigarettes, uncomplicated; Z59.00 Homelessness unspecified

== ENCOUNTER → 2024-04-27 14:40 | Outpatient (BNVA) | payer MEDICARE, SELFPAY | PROVIDERS: PCP Physician Assistant; Visit Provider Physician Assistant | DX: J44.1 Chronic obstructive pulmonary disease with (acute) exacerbation (principal); J43.2 Centrilobular emphysema; E78.2 Mixed hyperlipidemia; M51.369 Other intervertebral disc degeneration, lumbar region without mention of lumbar back pain or lower extremity pain; F17.210 Nicotine dependence, cigarettes, uncomplicated; Z59.01 Sheltered homelessness | CPT/HCPCS: 99212 ==

== ENCOUNTER 2024-10-26 14:34 | Outpatient (AMB) | payer MEDICARE, SELFPAY ==
--- NOTE | 2024-10-26 14:38 | MHC.PC.OV ---
Vital Signs 10/26/24 14:39 Height 5 ft 9 in Weight 156 lb 4 oz BMI 23.1 BP 128/62 Blood Pressure Location Lt brachial Position Sitting Pulse 87 Pulse Source Pulse Oximeter Temp 97.1 F Temp Source Temporal Artery Scan Pulse Oximetry (%) 98 Oxygen Delivery Method Room Air Intake Visit Reasons: Annual Exam Retort Cooler Required: No Accompanied by: Self / Same As Patient Allergies No Known Allergies (No Known Allergies*) Allergy (Verified 10/26/24 14:40) Tobacco use date assessed: 10/26/23 Dental Screening Dental Screen Date: 10/26/23 HPI Annual Exam HPI Details Patient is a 63-year-old male here today for a routine annual physical .? Patient has a past medical history significant for COPD, tobacco use disorder, lumbar disc disease, HOMELESS: Currently homeless. living at a hotel and with family members. He has been having some personal issues in his personal life. He reports a lot of his relationships with his family members have been torn. Currently looking for a stable apartment. Depression--> he does report having some worsening depression as of late. Does have a dog whom lives with him and give him some emotional support. .. COPD:? Patient reports his breathing has been fairly stable, unfortunately continues to smoke a couple cigarettes per day. He reports his maintenance inhaler low Breo has been too expensive for him, will try to send in Trelegy ? He is using nicotine gum which he has find helpful. We did speak about generic Chantix and would like to hold off on this for now. .. Hyperlipidemia: Has a history of elevated total cholesterol. Will recheck fasting lipid panel to assure appropriate total cholesterol and LDL. .. Lumbar disc disease:?Pain Has been fairly stable with p.r.n. use of ibuprofen and baclofen.? He does have a history of lumbar spine surgery due to not effective lumbar disc. Vaccines:? Up-to-date with COVID vaccine, up-to-date with tetanus and pneumonia vaccines, up-to-date flu vaccine. Colon cancer screening: Had colonoscopy in 2019, tubular adenoma polyp found, needed repeat in 3 years. Still considering repeat colonoscopy [facility] Medical History Bacterial spinal epidural abscess (~09/2019) Nicotine dependence, cigarettes, uncomplicated Intravenous drug abuse Discitis Postlaminectomy syndrome Surgical History History of colonoscopy History of appendectomy History of tonsillectomy History of lumbar surgery Family History Father Medical history unknown Mother No problems noted. Social History Housing: House Alcohol intake: current Alcohol intake frequency: holidays/special occasions only Alcohol type: beer Patient Tobacco Use Status: Current everyday Tobacco user Tobacco use type: Cigarette Cigarettes Per Day: 2 Years Smoked: onset 16yo, 1ppd x 46yrs, now 5cig/day - 40pyh e-Cigarette/Vaping Use: Never Used Second Hand Smoke Exposure: Yes Substance Use Type: Crack/Cocaine and IV Drugs service: No Current occupational status: unemployed Cognitive needs: No Hearing needs: No Vision needs: Yes (reading glasses) Questionnaire PHQ-9 Over the last 2 weeks, how often have you been bothered by any of the following problems? 1. Little interest or pleasure in doing things: not at all 2. Feeling down, depressed, or hopeless: not at all 3. Trouble falling or staying asleep, or sleeping too much: more than half the days 4. Feeling tired or having little energy: not at all 5. Poor appetite or overeating: not at all 6. Feeling bad about yourself - or that you are a failure or have let yourself or your family down: not at all 7. Trouble concentrating on things, such as reading the newspaper or watching television: not at all 8. Moving or speaking so slowly that other people could have noticed. Or the opposite - being so fidgety or restless that you have been moving around a lot more than usual: not at all 9. Thoughts that you would be better off or of hurting yourself in some way: not at all Total score: 2 Depression Screening Interpretation: Negative Depression Screening Done: Yes 30427 - PHQ-9 Billing: Yes Source: Developed by Drs. Micheal Alba, Dorothy Carl, Nicolas Haq and colleagues, with an educational manny from [employer]. Thrive Questionnaire Date Thrive assessed: 10/26/24 I am a: Patient What is your living situation today?: I do not have a steady places to live I am temporarily staying with others Within the past 12 months, did the food you bought not last and you didn't have the money to get more?: Sometimes True Within the past 12 months, did you worry whether your food would run out before you got money to buy more?: Sometimes True Do you have trouble paying for medicines?: No Do you have trouble getting transportation to medical appointments?: Yes Do you have trouble paying your heating and electricity bill?: No Do you have trouble taking care of your child, family member or friend?: No Do you have trouble with day-to-day activities such as bathing, preparing meals, shopping, managing finances, etc.?: No Are you currently unemployed and looking for a job?: No Are you interested in more education?: No Please select the resources that you would like help with: Housing/Long Term THRIVE Score: 4 JONES-7 AMB Questionnaire JONES-7 Date JONES - 7 assessed: 10/26/23 Source: Developed by Drs. Micheal Alba, Dorothy Carl, Nicolas Haq and colleagues, with an educational manny from [employer]. Review of Systems Const Denies body aches, Denies chills, Denies excessive sweating, Denies fatigue, Denies fever(s) and Denies headache(s) Eyes Denies blurry vision ENT Denies dysphagia, Denies vertigo, Denies dizziness, Denies headache(s), Denies hearing loss and Denies tinnitus Card Denies chest pain, Denies chest pain with activity, Denies syncope, Denies irregular heart rhythm and Denies dyspnea Resp Denies chest congestion, Denies cough, Denies hemoptysis, Denies dyspnea and Denies wheezing GI Denies abdominal pain, Denies melena, Denies hematochezia, Denies coffee ground emesis, Denies dysphagia, Denies diarrhea, Denies nausea and Denies vomiting Denies difficulty urinating, Denies dysuria, Denies urinary frequency, Denies urinary hesitancy and Denies urinary urgency Musc Denies arthralgias, Denies limited range of motion, Denies muscle cramps and Denies muscle weakness Skin/Breast Denies rash and Denies skin ulcer Neuro Denies Abnormal speech present, Denies confusion, Denies vertigo, Denies dizziness, Denies syncope, Denies headache(s), Denies memory loss and Denies seizure-like activity Psych Denies anxiety, Denies confusion, Denies depression, Denies memory loss, Denies panic attacks and Denies paranoia Endo Denies excessive sweating, Denies fatigue, Denies flushing, Denies polydipsia and Denies polyuria Aller/Immun Denies wheezing Physical exam (Primary Care) Vital Signs: Last Vital Signs Temp 97.1 F 10/26/24 14:39 Pulse 87 10/26/24 14:39 BP 128/62 10/26/24 14:39 Pulse Ox 98 10/26/24 14:39 Oxygen Delivery Method Room Air 10/26/24 14:39 BMI result Body Mass Index 23.1 Tobacco/Smoking Status: Tobacco use Status Tobacco use date assessed 10/26/23 10/26/24 14:44 Patient Tobacco Use Status Current everyday Tobacco 10/26/24 14:44 Tobacco use type Cigarette 10/26/24 14:44 e-Cigarette/Vaping Use Never Used 10/26/24 14:44 Are you ready to quit: No Tobacco cessation counseling provided: Yes Items discussed: Nicotine replacement Relapse Prevention: discussed the importance of a supportive environment, discussed negative mood or depression after quitting, weight gain after smoking is common and discussed dietary, exercise and/or lifestyle changes Number of minutes spent counselin CPT code: 95075 - 4-10 Minutes PHQ-9: PHQ-9 Score PHQ-9: Total score 2 10/26/24 16:08 Depression Screening Interpretation: Negative Thrive Assessment: Date of Thrive Assessment Date Thrive assessed 10/26/24 10/26/24 14:44 Const General: cooperative, comfortable, no acute distress, alert and awake; No confusion Orientation/consciousness: oriented to person, oriented to place, patient oriented x3 and No confusion HENMT Head: Yes normocephalic Ears: external ears normal and TM's normal bilaterally Face and sinus: No sinus tenderness Mouth: Normal oral and palatal mucosa present and tongue normal Teeth and gingiva: dentition normal and gingiva normal Throat: Yes posterior oropharynx normal, Yes tonsils normal and Yes uvula midline Eyes Conjunctivae: conjunctivae normal Sclerae: sclerae normal Pupils: Equal, round and reactive pupils present EOM: EOMs intact bilaterally Direct Ophthalmoscopy: No no photophobia Neck Neck: Yes no lymphadenopathy, No tender and Yes no JVD Thyroid: Thyroid normal Carotids: no bruits Chest Chest palpation & inspection: no tenderness Resp Effort & Inspection: normal respiratory effort, no audible wheezes, not labored and no stridor Auscultation: no crackles, no rales, no rhonchi and no wheezes Cardio Jugular venous distension: no JVD Rate: regular rate, not bradycardic and not tachycardic Rhythm: regular rhythm Bruits: no carotid bruits Peripheral pulses: Peripheral pulses 2+ throughout GI Inspection: Yes normal to inspection, No abdominal wall ecchymosis and No visible herniation Palpation (GI): Soft to palpation, nontender, no guarding, not rigid and No hepatosplenomegaly present Auscultation: normoactive bowel sounds General: Yes no CVA tenderness Back/Spine/Pelvis Back: no CVA tenderness and No back tenderness Cervical Spine: cervical ROM normal Thoracic/Lumbar Spine: thoracic and lumbar spine normal to inspection, straight leg raise negative bilaterally, No thoraco-lumbar ROM limited and No lumbar spinal tenderness Skin Lesions: no lesions Rashes: no rashes Wounds: no wounds Neuro General: oriented to person, oriented to place, patient oriented x3, CN's II-XI intact bilaterally and No confusion Cranial nerves: Yes Equal, round and reactive pupils present and Yes Normal accommodation reflex present Cognition (Neuro): normal cognition Speech: No Abnormal speech present Gait exam (Neuro): Normal gait present Motor exam (neuro): 5/5 motor strength present throughout Extrem Right upper extremity: full ROM; no cyanosis Left upper extremity: full ROM; no cyanosis Right lower extremity: no edema Left lower extremity: no edema Psych Appearance: grossly normal Mental Status: mental status grossly normal Affect: normal affect Attitude: cooperative Thought process: Normal thought process present Coding Level of Care Code Est Pt Prev Care 40-64y(34437) Diagnoses Annual physical exam Z00.00 Centrilobular emphysema J44.1 COPD type: COPD with acute exacerbation Mixed hyperlipidemia E78.2 Hyperlipidemia type: mixed hyperlipidemia Nicotine dependence, cigarettes, uncomplicated F17.210 Homeless Z59.00 MDD (major depressive disorder), recurrent episode, moderate F33.1 Right inguinal hernia K40.90 Additional Codes PHQ-9 - 08950 - PHQ-9 Billing: Yes ([id number]) Vital Signs *Quality* - CPT code: 35503 - 4-10 Minutes ([id number]) Assessment & Plan Assessment & Plan (1) Annual physical exam: Code(s): Z00.00 - Encounter for general adult medical examination without abnormal findings Category: Medical Plan: As per HPI (2) COPD (chronic obstructive pulmonary disease): Comment: THIS GENTLEMAN DOES HAVE MODERATE AT LEAST SEVERE CHRONIC OBSTRUCTIVE PULMONARY DISORDER., PER PFT IN 2012 HE HAS REMAINED RELATIVELY STABLE, BUT SHORT OF BREATH ON EXERTION. TX : CONTINUE TO USE BREO 100-25 1 INHALATION DAILY ALBUTEROL HFA 2 PUFFS Q 4-6 HOURS P.R.N. AND ALTERNATIVELY ALBUTEROL 2.5 MG SOLUTION IN THE NEBULIZER P.R.N.. * REPEAT PULMONARY FUNCTION TEST IS ORDERED, AND WILL RE-EVALUATE AFTER THE TEST IF HE NEEDS ANY ADDITIONAL MEDICINE. Code(s): J44.9 - Chronic obstructive pulmonary disease, unspecified Category: Medical Qualifiers: COPD type: COPD with acute exacerbation Qualified Code(s): J44.1 - Chronic obstructive pulmonary disease with (acute) exacerbation Plan: Needs to follow [place] pulmonology. He reports his breathing has been pretty stable with maintenance inhaler and p.r.n. use of his albuterol inhaler nebulizer. He unfortunately still smokes from time to time and does understand he needs to completely quit smoking. (3) HLD (hyperlipidemia): Code(s): E78.5 - Hyperlipidemia, unspecified Category: Medical Qualifiers: Hyperlipidemia type: mixed hyperlipidemia Qualified Code(s): E78.2 - Mixed hyperlipidemia Plan: Has not had fasting labs in quite some time. He promises to do some fasting labs before upcoming annual physical. Goal LDL to be below 130 (4) Nicotine dependence, cigarettes, uncomplicated: Comment: (current smoker, onset 16yo, 1ppd x 46yrs, now 1/4ppd - 40pyh) at present he is smoking about 5 cigarettes a day, I counselled him a that he needs to quit completely. he will continue to participate in annual lung screening program. Code(s): F17.210 - Nicotine dependence, cigarettes, uncomplicated Category: Medical Plan: As above patient does understand he needs to completely quit smoking. He does report having access to nicotine replacement already. (5) Homeless: Code(s): Z59.00 - Homelessness unspecified Category: Social Hx Plan: Currently living in a hotel rooms/ friends places and looking for affordable housing. (6) MDD (major depressive disorder), recurrent episode, moderate: Code(s): F33.1 - Major depressive disorder, recurrent, moderate Category: Medical Plan: Patient continues to show signs of depression likely related to his current personal issues and being homeless. He is not interested in mental health therapy or medication at this time. (7) Right inguinal hernia: Code(s): K40.90 - Unilateral inguinal hernia, without obstruction or gangrene, not specified as recurrent Category: Medical Plan: Has been noticing a right inguinal fullness. CT of abdomen and pelvis in 2021 did confirm bilateral inguinal hernias though more pronounced on the right. He is willing to speak with general surgeon about surgical fix. Orders: Referrals General Surgery Referral K40.90 - Unilateral inguinal hernia, without obstruction or gangrene, not specified as recurrent Pulmonology Referral F17.210 - Nicotine dependence, cigarettes, uncomplicated Medications: New hnkzhsfskjn-fahqwgdyr-wlzmktce 100-62.5-25 mcg (Trelegy Ellipta) 1 inh inhalation DAILY 60 ea 1RF 30 days J44.1 - Chronic obstructive pulmonary disease with (acute) exacerbation Refilled albuterol sulfate 90 mcg/actuation 2 puffs PO Q6H PRN 8.5 grams 6RF shortness of breath or wheezing 30 days J43.2 - Centrilobular emphysema ibuprofen 800 mg PO Q6H PRN 60 tabs 3RF pain 15 days M96.1 - Postlaminectomy syndrome, not elsewhere classified nicotine (polacrilex) 2 mg buccal Q2H PRN 100 ea 0RF nicotine cravings 30 days F17.200 - Nicotine dependence, unspecified, uncomplicated On Hold fluticasone furoate-vilanterol 100-25 mcg/dose (Breo Ellipta) Hold Comment: Doctor's Order 1 ea PO DAILY 60 ea 3RF J44.9 - Chronic obstructive pulmonary disease, unspecified
[2024-10-26 14:39] VITALS: BP 128/62; PULSE 87; TEMP 36.2; O2SAT 98; BMI 23.1
--- OUTSIDE RECORDS SUMMARY | 2024-10-26 17:44 | XMS_ITS ---
Author Name [facility] Organization Unknown Encounters Encounter Type Encounter Reason Primary Diagnosis Location Date Ambulatory [facility] 02/29/2024 Care Team Organization Name Specialty Phone Email Start Date End Da te [facility] 2024
== END 2024-10-26 15:14 | disposition home or self-care (01) ==
LOC: HO.HMCH 14:35
PROVIDERS: PCP Physician Assistant; Visit Provider Physician Assistant
DX: Z00.00 Encounter for general adult medical examination without abnormal findings (principal); J44.1 Chronic obstructive pulmonary disease with (acute) exacerbation; E78.2 Mixed hyperlipidemia; F17.210 Nicotine dependence, cigarettes, uncomplicated; Z59.00 Homelessness unspecified; F33.1 Major depressive disorder, recurrent, moderate; K40.90 Unilateral inguinal hernia, without obstruction or gangrene, not specified as recurrent

== ENCOUNTER → 2024-10-26 14:34 | Outpatient (BNVA) | payer MEDICARE, SELFPAY | PROVIDERS: PCP Physician Assistant; Visit Provider Physician Assistant | DX: Z00.00 Encounter for general adult medical examination without abnormal findings (principal); E78.5 Hyperlipidemia, unspecified; J44.1 Chronic obstructive pulmonary disease with (acute) exacerbation; E78.2 Mixed hyperlipidemia; F17.210 Nicotine dependence, cigarettes, uncomplicated; F33.1 Major depressive disorder, recurrent, moderate; K40.90 Unilateral inguinal hernia, without obstruction or gangrene, not specified as recurrent; J43.2 Centrilobular emphysema; M96.1 Postlaminectomy syndrome, not elsewhere classified; Z59.00 Homelessness unspecified | CPT/HCPCS: 96127; 99396 ==

== ENCOUNTER 2024-12-07 10:55 | Outpatient (AMB) | payer MEDICARE, SELFPAY ==
--- NOTE | 2024-12-07 11:00 | A.OFFVIS_ITS ---
Vital Signs 12/07/24 11:07 Height 5 ft 9 in Weight 164 lb BMI 24.2 BP 134/89 Blood Pressure Location Rt brachial Position Sitting Pulse 91 Intake Visit Reasons: Unilateral inguinal hernia Intake Note: Patient referred by pcp Salinas Barcenas PA-C for assessment of Unilateral inguinal hernia. Present for at least a couple of yrs. Patient c/o: on and off pain. Bulges out. 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 Instructions: Doctor's Order ikeqbxdbngp-vlqwlimqi-jbnxdevm 100-62.5-25 mcg (Trelegy Ellipta) 1 inh inhalation DAILY 30 days ibuprofen 800 mg PO Q6H PRN 15 days HPI HPI Unilateral inguinal hernia: Details: 64-year-old male referred for an inguinal hernia on the right. He says he has noticed this reducible mass in the right groin for ?a few years?. He says that sometimes this mass gets much bigger than usual. He describes discomfort in the area. He denies any GI complaints He admits to COPD. He said he used to be a heavy smoker. He says that he still smokes although he only smokes used sticks a day now. [facility] Medical History Reducible right inguinal hernia Bacterial spinal epidural abscess (~09/2019) Nicotine dependence, cigarettes, uncomplicated Intravenous drug abuse Discitis Postlaminectomy syndrome Surgical History History of colonoscopy History of appendectomy History of tonsillectomy History of lumbar surgery Family History Father Medical history unknown Mother No problems noted. Social History Housing: House Alcohol intake: current Alcohol intake frequency: holidays/special occasions only Alcohol type: beer Patient Tobacco Use Status: Current everyday Tobacco user Tobacco use type: Cigarette Cigarettes Per Day: 2 Years Smoked: onset 16yo, 1ppd x 47yrs, now 5cig/day - 40pyh e-Cigarette/Vaping Use: Never Used Second Hand Smoke Exposure: Yes Substance Use Type: Crack/Cocaine and IV Drugs service: No Current occupational status: unemployed Cognitive needs: No Hearing needs: No Vision needs: Yes (reading glasses) Review of Systems Const Denies chills and Denies fever(s) Card Denies chest pain, Denies dyspnea and Denies dyspnea on exertion Resp Details: Chronic cough Reports cough, Denies dyspnea and Denies dyspnea on exertion GI Denies hematochezia and Denies change in bowel habits Denies hematuria and Denies difficulty urinating Musc Denies back pain and Denies limited range of motion Neuro Denies focal weakness and Denies convulsions Psych Denies depression and Denies mood swings Physical Exam Const General: comfortable and no acute distress Orientation/consciousness: patient oriented x3 Neck Neck: Yes no lymphadenopathy Resp Auscultation: clear to auscultation bilaterally Cardio Rhythm: regular rhythm GI Other: Right inguinal hernia, reducible, very pronounced with Valsalva, nontender currently Palpation (GI): Soft to palpation, nontender and no guarding Neuro General: patient oriented x3 Assessment & Plan Assessment & Plan (1) Reducible right inguinal hernia: Code(s): K40.90 - Unilateral inguinal hernia, without obstruction or gangrene, not specified as recurrent Category: Medical Plan I reviewed with him the technique of repair of the right inguinal hernia with mesh placement. I explained the risks including but not limited to bleeding, infections, injury to bowel, vas deferens and testicle, recurrence, postop pain, as well as the benefits and alternatives. I reviewed with him what to expect postoperatively. He wants to proceed. Coding Level of Care Code New Pt Level 3 (76040) Diagnoses Reducible right inguinal hernia K40.90
[2024-12-07 11:07] VITALS: BP 134/89; PULSE 91; BMI 24.2
--- OUTSIDE RECORDS SUMMARY | 2024-12-07 11:37 | XMS_ITS ---
Author Name [facility] Organization Unknown Encounters Encounter Type Encounter Reason Primary Diagnosis Location Date Ambulatory [facility] 12/04/2024 Ambulatory [facility] 12/04/2024 Ambulatory [facility] 12/04/2024 Ambulatory [facility] 02/29/2024 Care Team Organization Name Specialty Phone Email Start Date End Da te [facility] 2024 [facility] 07/20/2024 11/11/19 [facility] 11/18/2023
== END 2024-12-07 11:16 | disposition home or self-care (01) ==
LOC: HO.HGS 10:56
PROVIDERS: PCP Physician Assistant; Visit Provider Surgery
DX: K40.90 Unilateral inguinal hernia, without obstruction or gangrene, not specified as recurrent (principal)
CPT/HCPCS: 99203

== ENCOUNTER → 2024-12-07 10:55 | Outpatient (BNVA) | payer MEDICARE, SELFPAY | PROVIDERS: PCP Physician Assistant; Visit Provider Surgery | DX: K40.90 Unilateral inguinal hernia, without obstruction or gangrene, not specified as recurrent (principal) | CPT/HCPCS: 99202 ==

== ENCOUNTER 2024-12-27 07:44 | Outpatient (REF) | payer MEDICARE, SELFPAY ==
--- NOTE | ~2024-12-27 | XR_ITS ---
EXAMINATION: XR CHEST 2 VIEWS HISTORY: J44.1 - Chronic obstructive pulmonary disease with (acute) exacerbation COMPARISON: Comparison is made with the prior examination dated 04/30/2023. FINDINGS: PA and lateral views of the chest are submitted. The lungs are hyperinflated, consistent with COPD. There is scarring in the left upper lobe. The lungs are otherwise clear. There is no pleural effusion, pneumothorax, or pulmonary vascular congestion. The heart is normal in size. There is scoliosis and degenerative disc disease of the spine. XR/XR chest 2V IMPRESSION: COPD. No acute cardiopulmonary abnormality. Electronically signed by: Micheal Garcia MD 12/27/2024 10:02 AM EDT
--- OUTSIDE RECORDS SUMMARY | 2024-12-27 07:46 | XMS_ITS | Clinical Summary ---
Author Organization [facility] Address [address] [place] [address] Care Team Providers Care [employer] Crewmember Name Role Phone Liliam Chaudhary PA-C Primary Care Provider [phone] Source Comments PLEASE NOTE, if this patient is a minor, it may be UNLAWFUL to discuss sensitive information that is contained in these records (such as FAMILY PLANNING, MENTAL HEALTH or SUBSTANCE ABUSE) with the minor patient's parent or other person without the patient's specific authorization.[facility] Medications naproxen (NAPROSYN) 500 mg tabletIndication s:Back pain Take 1 Tab by mouth 2 (two) times daily with a meal. 60 Tab 0 5 Active PROAIR HFA 90 mcg/actuation inhaler 2 5 Active predniSONE (DELTASONE) 20 mg tablet 0 5 Active budesonide-formo terol (SYMBICORT) 80-4.5 mcg/actuation inhalerIndicatio ns:COPD (chronic obstructive pulmonary disease) ([facility]) Inhale 2 Puffs into the lungs 2 (two) times daily. 1 Inhaler 5 Active tiotropium (SPIRIVA) 18 mcg capsule for inhalerIndicatio ns:COPD (chronic obstructive pulmonary disease) ([facility]) Inhale 1 Cap into the lungs once daily. (Two inhalations of the contents of 1 capsule once daily.) 30 Cap 5 Active Active Problems Problem Noted Date Diagnosed Date COPD (chronic obstructive pu lmonary disease) ([facility]) 08/09/2014 Overview (08/14/2014): Per BS note, pt intubated in 2004 for respiratory distress (3 intubations over an 11 year period) Back pain 08/09/2014 Smoker 08/09/2014 Immunizations Immunization Administration Dates Next Due PNEUMOCOCCAL POLYSACCHARIDE PPV23 (Pneumovax 23) 07/27/2014 Social History Tobacco Use Types Packs/Day Years Used Date Smoking Tobacco: Some Days Alcohol Use Standard Drinks/Week Comments No 0 (1 standard drink = 0.6 oz pur e alcohol) Social Connections Answer Date Recorded Social Connections and Isolation 0 12/25/2018 Financial Resource Strain Answer Date R ecorded Financial Resource Strain 0 2018 Stress Answer Date Recorded Stress 0 12/25/2018 Physical Activity Answer Date Recorded Physical Activity 0 12/25/2018 Food Insecurity Answer Date Recorded Food 0 12/25/2018 Transportation Needs Answer Date Record ed Transportation 0 12/25/2018 Housing Stability Answer Date Recorded Housing 0 12/25/2018 Safety and Environment Answer Date [place] r[place] Safety 0 12/25/2018 Utilities Answer Date Recorded Utilities 0 12/25/2018 Employment Answer Date Recorded Employment 0 12/25/2018 Sex and Gender Information Value Date Recorded Sex Assigned at Not on file Legal Sex Male 5:57 AM PDT Gender Identity Not on file Sexual Orientation Not on file Last Filed Vital Signs Vital Sign Reading Time Taken Comments Blood Pressure 120/80 08/09/2014 3:34 PM EDT Pulse 94 08/09/2014 3:34 PM EDT Temperature 36.7 C (98 F) 08/09/2014 3:34 PM EDT Respiratory Rate 16 08/09/2014 3:34 PM EDT Oxygen Saturation 96% 08/09/2014 3:34 PM EDT Inhaled Oxygen Concentration - - Weight 77.6 kg (171 lb) 08/09/2014 3:34 PM EDT Height 175.3 cm (5' 9 ) 08/09/2014 3:34 PM EDT Body Mass Index 25.25 08/09/2014 3:34 PM EDT Plan of Treatment Not on file Insurance [facility] Member Subscriber Plan / Payer (Ef fective 2014-Present) Name:Blaine Dowd Relation to Subscriber:Self Name:Blaine Dowd Payer ID:[id number] Type:Medicaid Address: [facility] [id number] [place] [address] Care Teams [employer] Crewmember Relationship Specialty Start Date End Date Liliam Chaudhary PA-C [address] [place] [address] PCP - General 03/23/18
--- NOTE | 2024-12-27 07:51 | PFT_ITS ---
Flows: FEV1: 50 % of predicted at 1.62 L FVC: 108 % of predicted at 4.53 L FEV1/FVC: 36 % Bronchodilator response: Present Volumes: Total lung capacity: 97 % of predicted at 6.51 L Residual volume: 145 % of predicted at 3.15 L Slow vital capacity: 73 % of predicted at 3.36 L Expiratory reserve volume: 85 % of predicted at 0.99 L Diffusion capacity: Mildly decreased Impression: Severe to very severe obstructive ventilatory defect with positive bronchodilator response. Increased residual volume suggests air trapping. Decreased diffusion capacity suggests emphysema. MTDD
[2024-12-27 08:56] VITALS: PULSE 100; O2SAT 96
== END 2024-12-27 07:45 | disposition home or self-care (01) ==
LOC: HO.RESP 07:44
PROVIDERS: Absent Provider Internal Medicine; PCP Physician Assistant; Visit Provider Internal Medicine
DX: J44.1 Chronic obstructive pulmonary disease with (acute) exacerbation (principal); F17.210 Nicotine dependence, cigarettes, uncomplicated
CPT/HCPCS: 71046; 94010; 94640; 94727; 94729; 99212

== ENCOUNTER 2024-12-27 08:23 | Outpatient (AMB) | payer MEDICARE, SELFPAY ==
[2024-12-27 08:51] VITALS: BP 140/100; PULSE 77; O2SAT 93; BMI 25.2
--- NOTE | 2024-12-27 08:51 | MHC.OFFVIS ---
Vital Signs 12/27/24 08:51 Height 5 ft 9 in Weight 170 lb 13.732 oz BMI 25.2 BP 140/100 H Blood Pressure Location Lt brachial Position Sitting Pulse 77 Pulse Source Pulse Oximeter Pulse Oximetry (%) 93 Oxygen Delivery Method Room Air Intake Visit Reasons: COPD/Pre Op Hernia Inguinal Reducible Intake Note: pt is here for pre-op clearance for hernia repair on 01/02/25, he does state some short of breath with fast walking/stress, he does use his nebulizer tid. Hospital Account Manager Required: No Allergies No Known Allergies (No Known Allergies*) Allergy (Verified 12/27/24 09:14) Medication List - Last Reconciled 12/27/24 by Regina Alejandro MD albuterol sulfate 2.5 mg (3 mL) inhalation Q6H PRN 30 days albuterol sulfate 90 mcg/actuation 2 puffs PO Q6H PRN 30 days ibuprofen 800 mg PO Q6H PRN 15 days Do you need a note to return to daycare/school/sports/work: No HPI HPI COPD/Pre Op Hernia Inguinal Reducible: Details: This 64 years old gentleman with the, severe obstructive airway disorder, was seen by me about 2 years ago, , after which he has not come back. He is here today her pulmonary evaluation as he will be undergoing herniorrhaphy next week. He has past history of smoking but for the past few years has cut down to only few cigarettes a day. Recently has had no acute exacerbation. He has frequent cough which is mostly dry, usually after taking a few puffs of cigarettes. He has significant shortness of breath on exertion such as walking only a few blocks or climbing stairs. This gentleman was doing better when he was on medications like Breo Ellipta, for sometime even Trelegy Ellipta was prescribed, but he had to discontinue due to non coverage by insurance. As present he uses only albuterol HFA when outdoors and albuterol solution in the nebulizer when in the house ( about 3 times a day) At rest he is fairly comfortable except for mild intermittent cough. [facility] Medical History (Updated 12/27/24 @ 09:26 by Regina Alejandro MD) Asthma-COPD overlap syndrome MDD (major depressive disorder), recurrent episode, moderate Tubular adenoma of colon Reducible right inguinal hernia Bacterial spinal epidural abscess (~09/2019) Nicotine dependence, cigarettes, uncomplicated Intravenous drug abuse Discitis Postlaminectomy syndrome Surgical History (Updated 12/21/24 @ 09:51 by Missy Obrien PA-C) History of colonoscopy History of appendectomy History of tonsillectomy History of lumbar surgery Family History Father Medical history unknown Mother No problems noted. Social History Housing: House Alcohol intake: current Alcohol intake frequency: holidays/special occasions only Alcohol type: beer Patient Tobacco Use Status: Current everyday Tobacco user Tobacco use type: Cigarette Cigarettes Per Day: 2 Years Smoked: onset 16yo, 1ppd x 46yrs, now 5cig/day - 40pyh e-Cigarette/Vaping Use: Never Used Second Hand Smoke Exposure: Yes Substance Use Type: Crack/Cocaine and IV Drugs service: No Current occupational status: unemployed Cognitive needs: No Hearing needs: No Vision needs: Yes (reading glasses) Review of Systems Const All systems reviewed & are unremarkable except as noted in HPI and below Eyes Reports no additional complaints ENT Reports no additional complaints Card Denies chest pain, Denies irregular heart rhythm and Denies leg edema Resp Reports as per HPI GI Reports no additional complaints Reports no additional complaints Musc Reports back pain ( chronic, uses muscle relaxants and ibuprofen p.r.n.) Skin/Breast Reports system reviewed and no additional complaints, except as documented Neuro Reports no additional complaints Psych Reports no additional complaints Endo Reports no additional complaints Aller/Immun Reports no additional complaints Physical Exam Vital Signs: Last Vital Signs Pulse 77 12/27/24 08:51 BP 140/100 H 12/27/24 08:51 Pulse Ox 93 12/27/24 08:51 Oxygen Delivery Method Room Air 12/27/24 08:51 BMI result Body Mass Index 25.2 Const General: healthy appearing, comfortable, no acute distress, alert and awake Orientation/consciousness: patient oriented x3 HEENT Head: Yes normal to inspection General nose exam: No nasal polyps present and No nasal discharge present Face and sinus: Yes sinuses nontender Mouth: oropharynx normal Throat: Yes posterior oropharynx normal Eyes General: appearance normal, both eyes and all related structures Neck Neck: Yes normal visual inspection, Yes no lymphadenopathy, Yes trachea midline and Yes no JVD Thyroid: Thyroid normal Chest Chest palpation & inspection: normal inspection of the chest, normal palpation of entire chest wall and no tenderness Resp Other: PERCUSSION NOTE IS HYPER-RESONANT, BREATH SOUNDS ARE DISTANT ON BOTH SIDES WITH. PROLONGED EXPIRATORY PHASE. NO WHEEZE.S RHONCHI OR CREPITATIONS ARE HEARD Cardio Palpation: normal PMI Rate: regular rate Rhythm: regular rhythm Heart sounds: no gallops and no murmurs Peripheral pulses: Peripheral pulses 2+ throughout GI Palpation (GI): Soft to palpation, nontender, No hepatosplenomegaly present and no masses Auscultation: normal bowel sounds Back/Spine/Pelvis Thoracic/Lumbar Spine: thoracic and lumbar spine normal to inspection Skin General skin exam: no rashes or lesions noted Neuro General: patient oriented x3 and no focal motor deficits Cranial nerves: Yes CN's II-XII intact bilaterally Extrem General: Yes normal to inspection, Yes no clubbing, cyanosis or edema and Yes no calf tenderness Psych Appearance: grossly normal and well kempt Speech and movement: Normal speech and movement present Results Reviewed Results Reviewed: Pulmonary function test performed this morning. He has severe obstructive airway disorder. But there is significant response to bronchodilator therapy , 50% improvement in FEV1 and FEF 25-75 CHEST XRAY : PULMONARY EMPHYSEMA/COPD. BUT NO ACUTE ABNORMALITY. Assessment & Plan Assessment & Plan (1) Asthma-COPD overlap syndrome: Comment: As per pulmonary function test there is evidence of severe obstructive airway disorder with partial reversibility after BD therapy. This pattern is consistent with asthma/COPD overlap syndrome. His COPD is mainly because of his smoking, He should respond fairly good to therapy including ICS, and LABD ( LABA OR LAMA ) THE PROBLEM WITH THERAPY IS NON COVERAGE OF MANY COMBINATION INHALERS BY THE INSURANCE. SO HE ENDS UP USING ALBUTEROL MOST OF THE TIME. Code(s): J44.89 - Other specified chronic obstructive pulmonary disease Category: Medical Plan: HE DOES HAVE A NEBULIZER AT HOME, I WOULD ADVISE HIM TO USE IPRATROPIUM-ALBUTEROL SOLUTION IN THE NEBULIZER Q 6 HOURS WHILE AWAKE ( TID ) I WILL ALSO ADD BUDESONIDE 0.5 MG SOLUTION AND USE IN THE NEBULIZER TWICE A DAY, ( I HOPE THAT IT IS COVERED BY INSURANCE) HE CAN USE ALBUTEROL HFA 2 PUFFS Q 6 HOURS P.R.N. WHEN OUTDOORS. RESULTS OF PULMONARY FUNCTION TESTS WERE DISCUSSED WITH HIM. CHEST X-RAY IS ALSO ORDERED TO RULE OUT ANY ACUTE PULMONARY DISEASE. (2) Nicotine dependence, cigarettes, uncomplicated: Comment: (current smoker, onset 16yo, 1ppd x 46yrs, now 1/4ppd - 40pyh). As had LDCT on , which was category 2 benign . Code(s): F17.210 - Nicotine dependence, cigarettes, uncomplicated Category: Medical Plan: As patient will be undergoing surgery I have told him to quit completely at this time. He needs to be read registered in the annual lung screening program.. Plan * PRE UP CLEARANCE FOR RIGHT INGUINAL HERNIORRHAPHY. PATIENT DOES NOT HAVE ANY ABSOLUTE CONTRAINDICATION, BUT HE IS A POOR SURGICAL RISK. HIS ONGOING COUGH MAY COMPROMISE THE RESULTS OF SURGERY. FOR THIS REASON, I TOLD HIM TO STOP SMOKING COMPLETELY. HIS THE PULMONARY CONDITION NEEDS TO BE OPTIMIZED AND I HAVE ORDERED NEW MEDICAL REGIMEN. POSTOPERATIVELY HE MAY NEED TREATMENT WITH IPRATROPIUM-ALBUTEROL SOLUTION IN THE NEBULIZER Q 4-6 HOURS NEEDED. I WOULD SEE HIM POSTOPERATIVELY FOR PULMONARY FOLLOW-UP. Orders: Orders XR chest 2V Today F17.210 - Nicotine dependence, cigarettes, uncomplicated, J44.1 - Chronic obstructive pulmonary disease with (acute) exacerbation Medications: New ipratropium-albuterol 0.5 mg-3 mg(2.5 mg base)/3 mL 3 mL inhalation Q6-8H PRN 180 mL 5RF ASTHMA/COPD OVERLAP SYNDROME 30 days budesonide 0.5 mg (2 mL) inhalation BID 120 mL 5RF ASTHMA/COPD OVERLAP SYNDROME 30 days Refilled albuterol sulfate 90 mcg/actuation 2 puffs PO Q6H PRN 8.5 grams 4RF shortness of breath or wheezing 30 days J43.2 - Centrilobular emphysema Coding Level of Care Code Est Pt Level 4 (90329) Diagnoses Asthma-COPD overlap syndrome J44.89 Nicotine dependence, cigarettes, uncomplicated F17.210
== END 2024-12-27 09:16 | disposition home or self-care (01) ==
LOC: HO.HPS 08:24
PROVIDERS: PCP Physician Assistant; Visit Provider Internal Medicine
DX: J44.89 Other specified chronic obstructive pulmonary disease (principal); F17.210 Nicotine dependence, cigarettes, uncomplicated
CPT/HCPCS: 99214

== ENCOUNTER → 2024-12-27 09:23 | Outpatient (BNV) | payer MEDICARE, SELFPAY | PROVIDERS: Absent Provider Internal Medicine; PCP Physician Assistant; Visit Provider Radiology Diagnostic Radiology | DX: J44.1 Chronic obstructive pulmonary disease with (acute) exacerbation (principal) | CPT/HCPCS: 71046 ==

== ENCOUNTER → 2025-01-02 06:30 | Day surgery (SDC) | payer MEDICARE, SELFPAY ==
[2024-12-28 16:00] VITALS: BMI 25.4
--- NOTE | 2024-12-29 09:28 | P.CONAN_ITS ---
Documented by User: Radha Lott NP 12/29/24 09:33 HPI - Anesthesia Eval Consult details Narrative: 64yo M for Right Hernia Inguinal Reducible with mesh Follows [facility] pulmo. Deemed poor surgical risk d/t severe COPD-Asthma and continuing to smoke. Responsive to albuterol. Will order updraft neb preop. 10/2024 PCP eval reports breathing stable. Hx substance use with +tox screens Pt not booked for in-person PAT eval No labs or EKG avail through [facility] [place], [facility] - will order DOS PMFSH Active Problems Active Problems: All Active Problems Asthma-COPD overlap syndrome (Acute) Reducible right inguinal hernia (Acute) Homeless (Acute) MDD (major depressive disorder), recurrent episode, moderate (Acute) HLD (hyperlipidemia) (Acute) Insomnia (Acute) Tubular adenoma of colon (Acute) Nicotine dependence, cigarettes, uncomplicated (Acute) Intravenous drug abuse (Acute) Postlaminectomy syndrome (Acute) Lumbar disc disease with radiculopathy (Acute) COPD (chronic obstructive pulmonary disease) (Acute) Past Medical History Medical History Asthma-COPD overlap syndrome MDD (major depressive disorder), recurrent episode, moderate Tubular adenoma of colon Reducible right inguinal hernia Bacterial spinal epidural abscess (~09/2019) Nicotine dependence, cigarettes, uncomplicated Intravenous drug abuse Discitis Postlaminectomy syndrome Family History Family History Father Medical history unknown Mother No problems noted. Surgical History Surgical History History of colonoscopy History of appendectomy History of tonsillectomy History of lumbar surgery Social History Social History Housing: House Alcohol intake: current Alcohol intake frequency: holidays/special occasions only Alcohol type: beer Patient Tobacco Use Status: Current everyday Tobacco user Tobacco use type: Cigarette Cigarettes Per Day: 2 Years Smoked: onset 16yo, 1ppd x 46yrs, now 5cig/day - 40pyh e-Cigarette/Vaping Use: Never Used Second Hand Smoke Exposure: Yes Use of substances other than those prescribed or required for medical reasons: Yes Substance Use Type: Crack/Cocaine and IV Drugs Substance Use Frequency: Occasionally Have you been hit, kicked, punched, or otherwise hurt by someone within the past year? If so, by whom?: No Are you DNR?: No Advance Directives: No Advance Directives Information Provided: Yes Advance Directives on File: No Poor oral hygiene: No service: No Current occupational status: unemployed Cognitive needs: No Hearing needs: No Vision needs: Yes (reading glasses) Meds Allergies Allergy/AdvReac Type Severity Reaction Status Date / Time No Known Allergies (No Known Allergy Verified 12/27/24 09:14 Allergies*) Exam Height,Weight and Vital Signs: Height 5 ft 9 in Weight 78.018 kg Assessment and Plan Assessment Anesthesia Assessment: Chart Reviewed Documented by User: Joseph Foster MD 01/02/25 07:31 [facility] Past Medical History Medical History Asthma-COPD overlap syndrome MDD (major depressive disorder), recurrent episode, moderate Tubular adenoma of colon Reducible right inguinal hernia Bacterial spinal epidural abscess (~09/2019) Nicotine dependence, cigarettes, uncomplicated Intravenous drug abuse Discitis Postlaminectomy syndrome Cognitive capacity: normal Functional capacity: independent ambulation Family History Family History Father Medical history unknown Mother No problems noted. Family history of problems with anesthesia: No Surgical History Surgical History History of colonoscopy History of appendectomy History of tonsillectomy History of lumbar surgery History of Problems with Anesthesia: No Social History Social History Housing: House Alcohol intake: current Alcohol intake frequency: holidays/special occasions only Alcohol type: beer Patient Tobacco Use Status: Current everyday Tobacco user Tobacco use type: Cigarette Cigarettes Per Day: 2 Years Smoked: onset 16yo, 1ppd x 46yrs, now 5cig/day - 40pyh e-Cigarette/Vaping Use: Never Used Second Hand Smoke Exposure: Yes Use of substances other than those prescribed or required for medical reasons: Yes Substance Use Type: Crack/Cocaine and IV Drugs Substance Use Frequency: Occasionally Have you been hit, kicked, punched, or otherwise hurt by someone within the past year? If so, by whom?: No Are you DNR?: No Advance Directives: No Advance Directives Information Provided: Yes Advance Directives on File: No Poor oral hygiene: No service: No Current occupational status: unemployed Cognitive needs: No Hearing needs: No Vision needs: Yes (reading glasses) Meds Allergies Allergy/AdvReac Type Severity Reaction Status Date / Time No Known Allergies (No Known Allergy Verified 12/27/24 09:14 Allergies*) Exam Exam Date and Time: 01/02/2025 Narrative Narrative: severe COPD Airway TM Dist: >3cm Neck ROM: Full Loose/Missing/Broken Teeth: Yes (mamy missing teeth. poor dentition) Heart: rrr Lungs: cta with distant breath sounds Assessment and Plan Assessment Anesthesia Assessment: Anesthesia Plan Discussed and Smoking Cess. Discussed Final Anesthetic Review Family History of Problems with Anesthesia: No History of Problems with Anesthesia: No NPO: Yes ASA Class: III Final Preanesthetic Review: No Changes in Pt Med Stat and Consent Obtained/Reviewed Patient Risk: Intermediate Procedure Risk: Low Anesthetic Plan Anesthetic Plan: GA Disposition: Standard PACU
--- NOTE | 2025-01-02 06:34 | ECG_ITS ---
Test Reason : SHORT STAY SURGERY Blood Pressure : */* mmHG Vent. Rate : 94 BPM Atrial Rate : 94 BPM P-R Int : 146 ms QRS Dur : 80 ms QT Int : 356 ms P-R-T Axes : 81 62 80 degrees QTcB Int : 445 ms Normal sinus rhythm Possible Left atrial enlargement Septal infarct , age undetermined Abnormal ECG When compared with ECG of 05-Sep-2019 08:01, Vent. rate has decreased by 52 bpm Referred By: Radha Lott Electronically Signed By: Dre Askew
[2025-01-02 06:43] VITALS: BMI 23.8
[2025-01-02 07:00] VITALS: BP 154/112; PULSE 95; RESP 16; TEMP 37; O2SAT 95
--- NOTE | 2025-01-02 07:01 | PC.NURSE ---
called for an ekg
[2025-01-02] MEDS: Albuterol Sulfate (0.083%) 2.5 MG/3 ML VIAL.NEB INHALE (07:13)
--- NOTE | 2025-01-02 07:13 | MHC.SHP ---
Pre-Procedural Eval Section A - 24 Hr Update-Section A only Date of Service: 01/02/25 Section B - Complete if H&P > 30 days Chief Complaint: Unilateral inguinal hernia, without obstruction Details of Present Illness: Reducible right inguinal hernia Relevant Social History: None Present Medications: see Short Stay Collaborative assessment Medical History: Significant History (Chronic back pain, hyperlipidemia, depression, asthma, history of IV drug use, smoker) Allergies: Allergies Allergy/AdvReac Type Severity Reaction Status Date / Time No Known Allergies (No Known Allergy Verified 12/27/24 09:14 Allergies*) Review of Systems Sugical H&P ROS: Negative: Constitution, Cardiovascular, Respiratory and Gastrointestinal Exam Surgical H&P Exam: Normal: Heart and Normal: Lungs and Significant Findings: Abdomen (Reducible right inguinal hernia) Plan Diagnosis/Plan: Unchanged I have reviewed the history and physical and performed a pertinent physical examination on my patient. No changes have occurred unless specified. Time Spent With Patient Time: Total time managing care of this patient today ____ minutes.
[2025-01-02 07:16] VITALS: PULSE 90; RESP 18; O2SAT 98
[2025-01-02] MEDS: Lactated Ringers 1,000 ML 100 ML IVCONT (07:16)
[2025-01-02 07:17] LABS: Anion Gap 12 (12-20); Blood Urea Nitrogen 29 mg/dL (9-16); Calcium 9.1 mg/dL (8.4-10.2); Carbon Dioxide 26 mmol/L (22-29); Chloride 106 mmol/L (96-108); Creatinine Clr Calc Pharmacy 62.4; Estimated Glomerular Filt Rate > 60; Potassium 4.3 mmol/L (3.3-5.1); Sodium 140 mmol/L (135-145)
[2025-01-02 07:19] LABS: Hematocrit 41.5 % (42.0-52.0); Hemoglobin 14.2 g/dl (14.0-18.0); Mean Corpuscular HGB Conc 34.2 g/dl (31.0-36.0); Mean Corpuscular Hemoglobin 30.0 pg (27.0-33.0); Mean Corpuscular Volume 87.7 fL (80.0-98.0); NRBC Abs Auto 0.000 X10*3/uL (0.0-0.012); NRBC Pct Auto 0.0 /100WBC (0.0-0.2); Platelet Count 280 X10*3/uL (160-400); Red Blood Count 4.73 X10*6/uL (4.60-5.80); White Blood Count 9.0 X10*3/uL (4.8-10.8)
--- NOTE | 2025-01-02 07:43 | PC.NURSE ---
attempting urine sample again after having some fluids wide open.
[2025-01-02 08:05] LABS: Cannabinoid Screen Urine POSITIVE (Not Detect)
--- NOTE | 2025-01-02 08:16 | PC.NURSE ---
IV REMOVED. AWARE OF PLAN PATIENT TO CALL FOR A RESCHEDULED APPT.
== END ==
LOC: HO.SSS 06:31
PROVIDERS: Nurse Practitioner; PCP Physician Assistant; Visit Provider Surgery
DX: K40.90 Unilateral inguinal hernia, without obstruction or gangrene, not specified as recurrent (principal); Z53.09 Procedure and treatment not carried out because of other contraindication; R82.5 Elevated urine levels of drugs, medicaments and biological substances; F19.10 Other psychoactive substance abuse, uncomplicated; J44.9 Chronic obstructive pulmonary disease, unspecified; F33.1 Major depressive disorder, recurrent, moderate
CPT/HCPCS: 36415; 80048; 80307; 85027; 93005; 94640; J0690; J2003; J2795

== ENCOUNTER → 2025-01-02 06:34 | Outpatient (BNV) | payer MEDICARE, SELFPAY | PROVIDERS: PCP Physician Assistant; Visit Provider Internal Medicine Cardiovascular Disease | DX: R94.31 Abnormal electrocardiogram [ECG] [EKG] (principal); J44.9 Chronic obstructive pulmonary disease, unspecified | CPT/HCPCS: 93010 ==

== ENCOUNTER 2025-01-25 13:19 | Outpatient (AMB) | payer MEDICARE, SELFPAY ==
--- NOTE | 2025-01-25 13:23 | A.OFFVIS_ITS ---
Vital Signs 01/25/25 13:24 Height 5 ft 9 in Weight 159 lb 13.362 oz BMI 23.6 BP 108/80 Blood Pressure Location Lt brachial Position Sitting Pulse 88 Pulse Source Pulse Oximeter Pulse Oximetry (%) 95 Oxygen Delivery Method Room Air Intake Visit Reasons: COPD Intake Note: pt is here for follow up and states little heavy breathing at times, [employer] Fund[employer] Required: No Allergies No Known Allergies (No Known Allergies*) Allergy (Verified 01/25/25 13:43) Do you need a note to return to daycare/school/sports/work: No HPI HPI COPD: Details: THIS 64 YEARS OLD GENTLEMAN IS HERE FOR FOLLOW-UP. SINCE HIS LAST VISIT HE HAS BEEN USING IPRATROPIUM-ALBUTEROL SOLUTION IN THE NEBULIZER 3 TIMES A DAY. AND THEN USES ALBUTEROL SOLUTION ONLY P.R.N.. HE WAS NOT ABLE TO GET BUDESONIDE SOLUTION BECAUSE OF NON COVERAGE BY INSURANCE. BUT HE IS DOING OKAY JUST WITH THE USE OF THE IPRATROPIUM-ALBUTEROL. HE HAS ONLY MILD INTERMITTENT COUGH AND MILD SHORTNESS OF BREATH ON EXERTION. [facility] Medical History Asthma-COPD overlap syndrome MDD (major depressive disorder), recurrent episode, moderate Tubular adenoma of colon Reducible right inguinal hernia Bacterial spinal epidural abscess (~09/2019) Nicotine dependence, cigarettes, uncomplicated Intravenous drug abuse Discitis Postlaminectomy syndrome Surgical History History of colonoscopy History of appendectomy History of tonsillectomy History of lumbar surgery Family History Father Medical history unknown Mother No problems noted. Social History Housing: House Are you a primary career education teacher to a significant other at home: No Do you presently have visiting nurse or other home services: No Alcohol intake: current Alcohol intake frequency: holidays/special occasions only Alcohol type: beer Patient Tobacco Use Status: Current everyday Tobacco user Tobacco use type: Cigarette Cigarettes Per Day: 1.5 Years Smoked: onset 16yo, 1ppd x 46yrs, now 5cig/day - 40pyh e-Cigarette/Vaping Use: Never Used Second Hand Smoke Exposure: Yes Substance Use Type: Crack/Cocaine and IV Drugs service: No Current occupational status: unemployed Cognitive needs: No Hearing needs: No Vision needs: Yes (reading glasses) Review of Systems Const All systems reviewed & are unremarkable except as noted in HPI and below Eyes Reports no additional complaints ENT Reports no additional complaints Card Denies chest pain, Denies irregular heart rhythm and Denies leg edema Resp Reports as per HPI GI Reports no additional complaints Reports no additional complaints Musc Reports back pain ( chronic, uses muscle relaxants and ibuprofen p.r.n.) Skin/Breast Reports system reviewed and no additional complaints, except as documented Neuro Reports no additional complaints Psych Reports no additional complaints Endo Reports no additional complaints Aller/Immun Reports no additional complaints Physical Exam Vital Signs: Last Vital Signs Pulse 88 01/25/25 13:24 BP 108/80 01/25/25 13:24 Pulse Ox 95 01/25/25 13:24 Oxygen Delivery Method Room Air 01/25/25 13:24 BMI result Body Mass Index 23.6 Const General: healthy appearing, comfortable, no acute distress, alert and awake Orientation/consciousness: patient oriented x3 HEENT Head: Yes normal to inspection General nose exam: No nasal polyps present and No nasal discharge present Face and sinus: Yes sinuses nontender Mouth: oropharynx normal Throat: Yes posterior oropharynx normal Eyes General: appearance normal, both eyes and all related structures Neck Neck: Yes normal visual inspection, Yes no lymphadenopathy, Yes trachea midline and Yes no JVD Thyroid: Thyroid normal Chest Chest palpation & inspection: normal inspection of the chest, normal palpation of entire chest wall and no tenderness Resp Other: PERCUSSION NOTE IS HYPER-RESONANT, BREATH SOUNDS ARE DISTANT ON BOTH SIDES WITH. PROLONGED EXPIRATORY PHASE. NO WHEEZE.S RHONCHI OR CREPITATIONS ARE HEARD Cardio Palpation: normal PMI Rate: regular rate Rhythm: regular rhythm Heart sounds: no gallops and no murmurs Peripheral pulses: Peripheral pulses 2+ throughout GI Palpation (GI): Soft to palpation, nontender, No hepatosplenomegaly present and no masses Auscultation: normal bowel sounds Back/Spine/Pelvis Thoracic/Lumbar Spine: thoracic and lumbar spine normal to inspection Skin General skin exam: no rashes or lesions noted Neuro General: patient oriented x3 and no focal motor deficits Cranial nerves: Yes CN's II-XII intact bilaterally Extrem General: Yes normal to inspection, Yes no clubbing, cyanosis or edema and Yes no calf tenderness Psych Appearance: grossly normal and well kempt Speech and movement: Normal speech and movement present Assessment & Plan Assessment & Plan (1) COPD (chronic obstructive pulmonary disease): Comment: THIS GENTLEMAN DOES HAVE MODERATE TO SEVERE CHRONIC OBSTRUCTIVE PULMONARY DISORDER., PER PFT IN 2012 HE HAS REMAINED RELATIVELY STABLE, BUT SHORT OF BREATH ON EXERTION. TX : HAS HAD PROBLEM IN GETTING THE INHALERS BECAUSE OF NON COVERAGE BY INSURANCE. SINCE HIS LAST VISIT FEW WEEKS AGO HE IS USING IPRATROPIUM-ALBUTEROL SOLUTION IN THE NEBULIZER 3 TIMES A DAY. HE HARDLY NEEDS TO USE THE RESCUE INHALER ALBUTEROL/ OR ALBUTEROL SOLUTION IN THE NEBULIZER. I HAD ALSO ORDERED THE BUDESONIDE SOLUTION TO USE TWICE A DAY IN THE NEBULIZER, BUT HE WAS NOT ABLE TO GET IT DUE TO HIGH EDWARDS. Code(s): J44.9 - Chronic obstructive pulmonary disease, unspecified Category: Medical Qualifiers: COPD type: COPD with acute exacerbation Qualified Code(s): J44.1 - Chronic obstructive pulmonary disease with (acute) exacerbation Plan: I TOLD HIM THAT HE IS DOING FAIRLY WELL JUST WITH THE USE OF IPRATROPIUM AND ALBUTEROL IN THE NEBULIZER. AND IF HE CAN NOT GET BUDESONIDE THAT IS OKAY. (2) Nicotine dependence, cigarettes, uncomplicated: Comment: (current smoker, onset 16yo, 1ppd x 46yrs, now 1/4ppd - 40pyh). As had LDCT on , which was category 2 benign . Code(s): F17.210 - Nicotine dependence, cigarettes, uncomplicated Category: Medical Plan: AGAIN COUNSELED HIM TO QUIT SMOKING AND AT LEAST CUT DOWN THE NUMBER OF CIGARETTES Coding Level of Care Code Est Pt Level 3 (59343) Diagnoses Centrilobular emphysema J44.1 COPD type: COPD with acute exacerbation Nicotine dependence, cigarettes, uncomplicated F17.210
[2025-01-25 13:24] VITALS: BP 108/80; PULSE 88; O2SAT 95; BMI 23.6
--- OUTSIDE RECORDS SUMMARY | 2025-01-25 17:57 | XMS_ITS | Clinical Summary ---
Author Organization [facility] Address [address] [place] [address] Care Team Providers Care Behavioral Scientist Name Role Phone Liliam Chaudhary PA-C Primary Care Provider [phone] Source Comments PLEASE NOTE, if this patient [...] mcg/actuation inhalerIndicatio ns:COPD (chronic obstructive pulmonary disease) ([facility]) Inhale 2 Puffs into the lungs 2 (two) times daily. 1 Inhaler 5 Active tiotropium (SPIRIVA) 18 mcg capsule for inhalerIndicatio ns:COPD (chronic obstructive pulmonary disease) ([facility]) Inhale 1 Cap into the lungs once daily. (Two inhalations of the contents of 1 capsule once daily.) 30 Cap 5 Active Active Problems Problem Noted Date Diagnosed Date COPD (chronic obstructive pu lmonary disease) ([facility]) 08/09/2014 Overview (08/14/2014): Per BS note, pt [...] Plan of Treatment Not on file Insurance [facility] Member Subscriber Plan / Payer (Ef fective 2014-Present) Name:Blaine Dowd Relation to Subscriber:Self Name:Blaine Dowd Payer ID:[id number] Type:Medicaid Address: [facility] [id number] [place] [address] Care Teams Behavioral Scientist Relationship Specialty Start Date End Date Liliam Chaudhary PA-C [address] [place] [address] PCP - General 03/23/18
== END 2025-01-25 13:43 | disposition home or self-care (01) ==
LOC: HO.HPS 13:20
PROVIDERS: PCP Physician Assistant; Visit Provider Internal Medicine
DX: J44.1 Chronic obstructive pulmonary disease with (acute) exacerbation (principal); F17.210 Nicotine dependence, cigarettes, uncomplicated
CPT/HCPCS: 99213

== ENCOUNTER → 2025-01-25 13:19 | Outpatient (BNVA) | payer MEDICARE, SELFPAY | PROVIDERS: PCP Physician Assistant; Visit Provider Internal Medicine | DX: J44.1 Chronic obstructive pulmonary disease with (acute) exacerbation (principal); F17.210 Nicotine dependence, cigarettes, uncomplicated | CPT/HCPCS: 99212 ==

== ENCOUNTER 2025-02-06 08:50 | Day surgery (SDC) | payer MEDICARE, SELFPAY ==
--- OUTSIDE RECORDS SUMMARY | 2025-01-02 15:27 | XMS_ITS | Clinical Summary ---
Author Organization [facility] Address [address] [place] [address] Care Team Providers Care Commercial Lines Account Assistant Name Role Phone Liliam Chaudhary PA-C Primary Care Provider Source Comments PLEASE NOTE, if this patient [...] mcg/actuation inhalerIndicatio ns:COPD (chronic obstructive pulmonary disease) ([facility]) Inhale 2 Puffs into the lungs 2 (two) times daily. 1 Inhaler 5 Active tiotropium (SPIRIVA) 18 mcg capsule for inhalerIndicatio ns:COPD (chronic obstructive pulmonary disease) ([facility]) Inhale 1 Cap into the lungs once daily. (Two inhalations of the contents of 1 capsule once daily.) 30 Cap 5 Active Active Problems Problem Noted Date Diagnosed Date COPD (chronic obstructive pu lmonary disease) ([facility]) 08/09/2014 Overview (08/14/2014): Per BS note, [...] Plan of Treatment Not on file Insurance [facility] Member Subscriber Plan / Payer (Ef fective 2014-Present) Name:Blaine Dowd Relation to Subscriber:Self Name:Blaine Dowd Payer ID:[id number] Type:Medicaid Address: [facility] [id number] [place] [address] Care Teams Commercial Lines Account Assistant Relationship Specialty Start Date End Date Liliam Chaudhary PA-C [address] [place] [address] PCP - General 03/23/18
--- NOTE | 2025-02-02 12:33 | HO.ANESPROP2 ---
Documented by User: Radha Lott NP 02/02/25 12:34 HPI - Anesthesia Eval Consult details Narrative: 64yo M for Right Hernia Inguinal Reducible with mesh Previously cx'd DOS for +Utox [place] [facility]. Deemed poor surgical risk d/t severe COPD-Asthma and continuing to smoke. Responsive to albuterol. Will order updraft neb preop. 10/2024 PCP eval reports breathing stable. Hx substance use with +tox screens Pt not booked for in-person PAT eval No labs or EKG [place] [facility] [place] Dominga Hutson - done 01/2025 preop PMFSH Active Problems Active Problems: All Active Problems Asthma-COPD overlap syndrome (Acute) Reducible right inguinal hernia (Acute) Homeless (Acute) MDD (major depressive disorder), recurrent episode, moderate (Acute) HLD (hyperlipidemia) (Acute) Insomnia (Acute) Tubular adenoma of colon (Acute) Nicotine dependence, cigarettes, uncomplicated (Acute) Intravenous drug abuse (Acute) Postlaminectomy syndrome (Acute) Lumbar disc disease with radiculopathy (Acute) COPD (chronic obstructive pulmonary disease) (Acute) Past Medical History Medical History Asthma-COPD overlap syndrome MDD (major depressive disorder), recurrent episode, moderate Tubular adenoma of colon Reducible right inguinal hernia Bacterial spinal epidural abscess (~09/2019) Nicotine dependence, cigarettes, uncomplicated Intravenous drug abuse Discitis Postlaminectomy syndrome Family History Family History Father Medical history unknown Mother No problems noted. Family history of problems with anesthesia: No Surgical History Surgical History History of colonoscopy History of appendectomy History of tonsillectomy History of lumbar surgery History of Problems with Anesthesia: No Social History Social History Housing: House Are you a primary care coordination manager to a significant other at home: No Do you presently have visiting nurse or other home services: No Alcohol intake: current Alcohol intake frequency: holidays/special occasions only Alcohol type: beer Patient Tobacco Use Status: Current everyday Tobacco user Tobacco use type: Cigarette Cigarettes Per Day: 2 Years Smoked: onset 16yo, 1ppd x 46yrs, now 5cig/day - 40pyh Smoked in Last 30 Days: Yes e-Cigarette/Vaping Use: Never Used Second Hand Smoke Exposure: No Use of substances other than those prescribed or required for medical reasons: Yes Substance Use Type: Crack/Cocaine and IV Drugs Substance Use Frequency: Daily Have you been hit, kicked, punched, or otherwise hurt by someone within the past year? If so, by whom?: No Are you DNR?: No Advance Directives: No Advance Directives Information Provided: Yes Advance Directives on File: No Poor oral hygiene: No service: No Current occupational status: unemployed Cognitive needs: No Hearing needs: No Vision needs: Yes (reading glasses) Meds Allergies Allergy/AdvReac Type Severity Reaction Status Date / Time No Known Allergies (No Known Allergy Verified 01/25/25 13:43 Allergies*) Exam Pertinent Lab Results Pertinent Lab Results: Laboratory Tests 01/02/25 06:45 WBC 9.0 Hgb 14.2 Hct 41.5 L Plt Count 280 Sodium 140 Potassium 4.3 Chloride 106 Carbon Dioxide 26 BUN 29 H Creatinine 1.21 Narrative Narrative: EKG 01/2025 Vent. Rate : 94 BPM Atrial Rate : 94 BPM P-R Int : 146 ms QRS Dur : 80 ms QT Int : 356 ms P-R-T Axes : 81 62 80 degrees QTcB Int : 445 ms Normal sinus rhythm Possible Left atrial enlargement Septal infarct , age undetermined Abnormal ECG When compared with ECG of 05-Sep-2019 08:01, Vent. rate has decreased by 52 bpm Assessment and Plan Assessment Anesthesia Assessment: Chart Reviewed Final Anesthetic Review Family History of Problems with Anesthesia: No History of Problems with Anesthesia: No Documented by User: Willie Ta MD 02/06/25 11:27 [facility] Past Medical History Medical History Asthma-COPD overlap syndrome MDD (major depressive disorder), recurrent episode, moderate Tubular adenoma of colon Reducible right inguinal hernia Bacterial spinal epidural abscess (~09/2019) Nicotine dependence, cigarettes, uncomplicated Intravenous drug abuse Discitis Postlaminectomy syndrome Family History Family History Father Medical history unknown Mother No problems noted. Surgical History Surgical History History of colonoscopy History of appendectomy History of tonsillectomy History of lumbar surgery Social History Social History Housing: House Are you a primary care coordination manager to a significant other at home: No Do you presently have visiting nurse or other home services: No Alcohol intake: current Alcohol intake frequency: holidays/special occasions only Alcohol type: beer Patient Tobacco Use Status: Current everyday Tobacco user Tobacco use type: Cigarette Cigarettes Per Day: 2 Years Smoked: onset 16yo, 1ppd x 46yrs, now 5cig/day - 40pyh Smoked in Last 30 Days: Yes e-Cigarette/Vaping Use: Never Used Second Hand Smoke Exposure: No Use of substances other than those prescribed or required for medical reasons: Yes Substance Use Type: Crack/Cocaine and IV Drugs Substance Use Frequency: Daily Have you been hit, kicked, punched, or otherwise hurt by someone within the past year? If so, by whom?: No Are you DNR?: No Advance Directives: No Advance Directives Information Provided: Yes Advance Directives on File: No Poor oral hygiene: No service: No Current occupational status: unemployed Cognitive needs: No Hearing needs: No Vision needs: Yes (reading glasses) Meds Allergies Allergy/AdvReac Type Severity Reaction Status Date / Time No Known Allergies (No Known Allergy Verified 01/25/25 13:43 Allergies*) Exam Exam Date and Time: 02/06/25 Airway Mallampati Class: I TM Dist: >3cm Neck ROM: Full Loose/Missing/Broken Teeth: Yes Heart: rrr Lungs: bl wheezes do not clear with cough - pt attests to use of inhaler today and optimization Other: plt/cbc checked. extensive midline back scar from prior surgery Assessment and Plan Assessment Anesthesia Assessment: Anesthesia Plan Discussed and Smoking Cess. Discussed Final Anesthetic Review NPO: Yes ASA Class: III Final Preanesthetic Review: No Changes in Pt Med Stat, Meds/Allgs Chart Reviewed, Consent Obtained/Reviewed and Anes Risks/Benef Reviewed Patient Risk: Intermediate Procedure Risk: Intermediate Assessment/Block/Sedation in SS: Assess/Block/Sedation-SS Anesthetic Plan Anesthetic Plan: Spinal (pt stated for spinal surgery that team could not intubate and he coded ) and Agree w/ Assess. and Plan Disposition: Standard PACU
[2025-02-02 13:39] VITALS: BMI 24.2
[2025-02-06] VITALS (11 sets, daily range): BP systolic 135–185; BP diastolic 108–119; PULSE 64–86; RESP 12–18; TEMP 36.4–37.1; O2SAT 97–98; BMI 22.9
[2025-02-06] MEDS: Lactated Ringers 1,000 ML 100 ML IVCONT (09:30)
[2025-02-06 10:27] LABS: Cannabinoid Screen Urine POSITIVE (Not Detect)
--- NOTE | 2025-02-06 11:31 | MHC.SHP ---
Pre-Procedural Eval Section A - 24 Hr Update-Section A only Date of Service: 02/06/25 Section B - Complete if H&P > 30 days Chief Complaint: Unilateral inguinal hernia, without obstruction Details of Present Illness: Has a reducible right inguinal hernia Relevant Family History (Specify if Yes): No Relevant Social History: None Present Medications: see Short Stay Collaborative assessment Medical History: Significant History (Asthma COPD, hyperlipidemia, smoking history, depression, back pain) Allergies: Allergies Allergy/AdvReac Type Severity Reaction Status Date / Time No Known Allergies (No Known Allergy Verified 01/25/25 13:43 Allergies*) Review of Systems Sugical H&P ROS: Negative: Constitution, Cardiovascular and Respiratory Exam Surgical H&P Exam: Normal: Heart and Normal: Lungs and Significant Findings: Abdomen (Reducible right inguinal hernia) Plan Diagnosis/Plan: Unchanged I have reviewed the history and physical and performed a pertinent physical examination on my patient. No changes have occurred unless specified. Time Spent With Patient Time: Total time managing care of this patient today ____ minutes.
--- NOTE | 2025-02-06 12:43 | P.OP_ITS ---
Operative Note Operative Note Date of Service: 02/06/25 Narrative: Preop diagnosis: Recurrent right inguinal hernia, reducible Postop diagnosis: Recurrent right inguinal hernia, reducible, direct Procedure: Repair of recurrent right inguinal hernia with mesh Surgeon: Juanito Sánchez MD family medicine physician assistant: MAXIM Blackman The patient is a 64-year-old male right inguinal hernia hat was reducible. Examination preoperatively actually showed right inguinal hernia repair scars on both the left and right side so this represented a recurrence. He understood the technique of the planned procedure as well as the risks, benefits, and alternatives. He was brought to the operating room. He was placed supine under spinal anesthesia with some excision. The right groin was prepped and draped in the usual sterile fashion. A surgical time-out was done. The patient received cefazolin 2 g IV preoperatively I infiltrated the planned line of incision with lidocaine 1%. I made the incision on the right inguinal hernia along the old incision with a blade 15. This carried down with electrocautery through the full-thickness of the skin subcutaneous fat. There was note of significant fibrotic changes in the area in view of his previous surgery. I was able to identify the external oblique aponeurosis. I bluntly dissected this and I was able to define the external ring. I made an incision on the aponeurosis and extended this inferomedially to connect with the external ring. The inguinal canal was therefore entered. I applied hemostats on the divided edges of the aponeurosis. I bluntly dissected the underside of the aponeurosis to create a pocket for the mesh. I was able to identify the spermatic cord and its contents. I passed a [place] drain around this cord and its contents and used this for retraction. The hernia which was fat containing was noted alongside this. I dissected the hernia contents off of the rest of the cord contents with a combination of blunt dissection and electrocautery until was able to define this through the defect. This was on the floor of the canal so this represented a direct hernia. I reinforced the floor of the canal with a Prolene plug. The plug was secured to the shelving edge of the inguinal ligament laterally and the internal oblique superiorly and medially. I identified the of the cord contents and protected the vas deferens during the rest of the dissection I reinforced the rest of the floor of the canal with a keyhole mesh. The tails of the mesh were passed around the cord at the level of the internal ring with a Prolene 2-0 stitch. Flattened the mesh underneath the aponeurosis. I secured the mesh with Prolene 2-0 sutures to the pubic ramus inferomedially, the internal oblique medially as well as the shelving edge of the inguinal ligament laterally. I closed the external oblique aponeurosis over the mesh with a running Polysorb 2-0 stitch to re-create the external ring I irrigated. I observed for hemostasis. Once hemostasis was confirmed, I reapposed the subcutaneous layer Polysorb 3-0 Prolene interrupted sutures. Skin closure was achieved with Polysorb 4-0 subcuticular running stitch. The area was infiltrated with Marcaine 0.5% for postop analgesia. Dressings were applied and the procedure was then completed The patient tolerated procedure well. There were no immediate complications. Initial and final counts of sponges and instruments were correct. Estimated blood loss was less than 20 cc. The patient was then transferred to the recovery room with stable vital signs.
== END 2025-02-06 17:40 | disposition home or self-care (01) ==
PROVIDERS: Nurse Practitioner; PCP Physician Assistant; Visit Provider Surgery
PROC: (CPT 49520; principal; 2025-02-06 11:50)
DX: K40.91 Unilateral inguinal hernia, without obstruction or gangrene, recurrent (principal); J44.9 Chronic obstructive pulmonary disease, unspecified; F17.210 Nicotine dependence, cigarettes, uncomplicated
CPT/HCPCS: 49520; 80307; C1781; J0690; J1100; J1171; J1920; J2003; J2250; J2405; J2704; J2795

== ENCOUNTER → 2025-02-06 08:50 | Outpatient (BNV) | payer MEDICARE, SELFPAY | PROVIDERS: PCP Physician Assistant; Visit Provider Surgery | DX: K40.91 Unilateral inguinal hernia, without obstruction or gangrene, recurrent (principal) | CPT/HCPCS: 49520 ==

== ENCOUNTER 2025-02-15 14:27 | Outpatient (REF) | payer MEDICARE, SELFPAY ==
--- NOTE | ~2025-02-15 | CT_ITS ---
EXAMINATION: CT LUNG SCREENING HISTORY: F17.210 - Nicotine dependence, cigarettes, uncomplicated TECHNIQUE: Low dose axial images were obtained from the sternal notch to upper abdomen without IV contrast per standard departmental protocol. Sagittal and coronal reformatted images were also obtained and reviewed. One or more of the following techniques was used for dose reduction: Automated exposure control, adjustment of the mA and/or kV according to patient size, use of iterative reconstruction technique. DLP: 48 mGy-cm COMPARISON: Previous chest CT scans July 2022 and April 2015 FINDINGS: Lung nodules: Scattered areas of bronchial wall thickening. Stable architectural distortion or scarring in the left upper lobe with nodular bandlike thickening measuring up to 9 mm for example axial image 45 series 5 and spiculation extending to the pleural surface. More inferior nodular component measures 8.7 x 5.9 mm in transverse and AP dimension compared to 8.8 x 5.2 cm in July 2022 and 4 x 9 mm April 2015 and may be minimally increased in size in AP dimension compared to prior exam. Small right lower lobe micronodules are stable. No new pulmonary nodule. Increased dependent soft tissue mixed with air in the right mainstem bronchus probably representing patient's secretions. Central airways are otherwise clear. Emphysema: mild Coronary Calcification: moderate Aortic Arch Calcification: none Potentially Significant Incidentals : none Additional Chest Findings: There is no pleural or pericardial effusion. No mediastinal or axillary lymphadenopathy is identified. Visualized upper abdomen: The visualized portions of the liver, spleen, and adrenals have an unremarkable unenhanced appearance. Degenerative changes of the spine and mild scoliosis. CT/CT lung screening IMPRESSION: Mild emphysema and scattered areas of bronchial wall thickening. Stable left upper lobe architectural distortion or scarring. Question gradual interval increase in size in AP dimension of the more inferior left upper lobe nodule now measuring 8.7 x 5.9 mm. LUNG-RADS ASSESSMENT: Lung-RADS 4A: Suspicious MANAGEMENT: PET/CT or Tissue Sampling or continued 3-6 month f/u LDCT Category S: N/A Electronically signed by: Jael Whitley MD 02/16/2025 08:35 AM EDT
--- OUTSIDE RECORDS SUMMARY | 2025-02-15 18:17 | XMS_ITS | Clinical Summary ---
Author Organization [facility] Address [address] [place] [address] Care Team Providers Care Configuration Management Consultant Name Role Phone Liliam Chaudhary PA-C Primary Care Provider [phone] Source Comments PLEASE NOTE, if this patient [...] mcg/actuation inhalerIndicatio ns:COPD (chronic obstructive pulmonary disease) Inhale 2 Puffs into the lungs 2 (two) times daily. 1 Inhaler 5 Active tiotropium (SPIRIVA) 18 mcg capsule for inhalerIndicatio ns:COPD (chronic obstructive pulmonary disease) Inhale 1 Cap into the lungs once daily. (Two inhalations of the contents of 1 capsule once daily.) 30 Cap 5 Active Active Problems Problem Noted Date Diagnosed Date COPD (chronic obstructive pulmonary disease) 01/2015 Overview (08/14/2014): Per BS note, pt intubated [...] Plan of Treatment Not on file Insurance [facility] Member Subscriber Plan / Payer (Ef fective 2014-Present) Name:Blaine Dowd Relation to Subscriber:Self Name:Blaine Dowd Payer ID:[id number] Type:Medicaid Address: [facility] [id number] [place] [id number] Care Teams Configuration Management Consultant Relationship Specialty Start Date End Date Liliam Chaudhary PA-C [address] [place] [address] PCP - General 03/23/18
== END 2025-02-15 14:28 | disposition home or self-care (01) ==
LOC: HO.CT 14:27
PROVIDERS: PCP Physician Assistant; Visit Provider Physician Assistant Medical
DX: Z12.2 Encounter for screening for malignant neoplasm of respiratory organs (principal); F17.210 Nicotine dependence, cigarettes, uncomplicated
CPT/HCPCS: 71271

== ENCOUNTER → 2025-02-15 14:32 | Outpatient (BNV) | payer MEDICARE, SELFPAY | PROVIDERS: PCP Physician Assistant; Visit Provider Radiology Diagnostic Radiology | DX: F17.210 Nicotine dependence, cigarettes, uncomplicated (principal) | CPT/HCPCS: 71271 ==

== ENCOUNTER 2025-02-19 09:42 | Outpatient (AMB) | payer MEDICARE, SELFPAY ==
--- NOTE | 2025-02-19 09:51 | A.OFFVIS_ITS ---
Vital Signs 02/19/25 09:58 Height 5 ft 9 in Weight 162 lb BMI 23.9 BP 134/88 Blood Pressure Location Rt brachial Position Sitting Pulse 103 H Intake Visit Reasons: S/P RIH w/mesh Intake Note: Patient here s/p Repair of recurrent right inguinal hernia with mesh. Patient c/o: swelling, tenderness at incision site. Taking rx pain meds as needed. Surgery (): 02-06-2025 Short Order Cook Required: No Accompanied by: Self / Same As Patient Allergies No Known Allergies (No Known Allergies*) Allergy (Verified 02/19/25 09:58) HPI HPI S/P RIH w/mesh: Details: overall doing well. Experiencing some pain and swelling at the incision site that is well controlled with OTC medications and oxycodone as needed. Diet and bowel function at baseline. [facility] Medical History Asthma-COPD overlap syndrome MDD (major depressive disorder), recurrent episode, moderate Tubular adenoma of colon Reducible right inguinal hernia Bacterial spinal epidural abscess (~09/2019) Nicotine dependence, cigarettes, uncomplicated Intravenous drug abuse Discitis Postlaminectomy syndrome Surgical History History of colonoscopy History of appendectomy History of tonsillectomy History of lumbar surgery Family History Father Medical history unknown Mother No problems noted. Social History Housing: House Are you a primary long term care social worker to a significant other at home: No Do you presently have visiting nurse or other home services: No Alcohol intake: current Alcohol intake frequency: holidays/special occasions only Alcohol type: beer Patient Tobacco Use Status: Current everyday Tobacco user Tobacco use type: Cigarette Cigarettes Per Day: 2 Years Smoked: onset 16yo, 1ppd x 46yrs, now 5cig/day - 40pyh e-Cigarette/Vaping Use: Never Used Second Hand Smoke Exposure: No Substance Use Type: Crack/Cocaine and IV Drugs service: No Current occupational status: unemployed Cognitive needs: No Hearing needs: No Vision needs: Yes (reading glasses) Review of Systems Const All systems reviewed & are unremarkable except as noted in HPI and below Physical Exam Vital Signs: Last Vital Signs Pulse 103 H 02/19/25 09:58 BP 134/88 02/19/25 09:58 BMI result Body Mass Index 23.9 Const General: comfortable and no acute distress Orientation/consciousness: patient oriented x3 GI Other: [facility] incision site: Incision site clean dry intact. Mild edema, mildly tender. Some deep induration. No surrounding erythema, no discharge. Neuro General: patient oriented x3 Assessment & Plan Assessment & Plan (1) S/P inguinal hernia repair: Comment: Right inguinal hernia repair with mesh 02/06/2025, Dr. Sánchez Code(s): Z98.890 - Other specified postprocedural states; Z87.19 - Personal history of other diseases of the digestive system Category: Medical Plan 64-year-old male s/p right inguinal hernia repair with Dr. Sánchez on 02/06/2025 returning to the office for routine follow-up. Overall doing well, still having some pain and swelling at the incision site in, reassured him that this is appropriate at this stage postoperatively and should improve over the next few weeks. Having some difficulty with ambulation, but pain is well controlled with uarg-ere-uwzhudn medications during the day, using narcotics as needed. Appetite and bowel function are at baseline. Recommended continuing Colace used to prevent constipation and straining with defecation. On exam the incision site appears to be healing well, there was some mild edema and some deep induration but otherwise the incision site is clean dry and intact, no concern for infection at this time. I did recommend him to do use warm compress to help soften some of the scar tissue at the incision site. We will continue with activity restrictions for the next 4 weeks. He will return in 3 weeks for routine follow up. Can return sooner with any concerns or questions prior. Coding Level of Care Code Global (73148) Diagnoses S/P inguinal hernia repair Z98.890; Z87.19
[2025-02-19 09:58] VITALS: BP 134/88; PULSE 103; BMI 23.9
== END 2025-02-19 10:04 | disposition home or self-care (01) ==
LOC: HO.HGS 09:43
PROVIDERS: PCP Physician Assistant
DX: Z98.890 Other specified postprocedural states (principal); Z87.19 Personal history of other diseases of the digestive system
CPT/HCPCS: 99024

== ENCOUNTER → 2025-02-19 09:42 | Outpatient (BNVA) | payer MEDICARE, SELFPAY | PROVIDERS: PCP Physician Assistant | DX: K40.90 Unilateral inguinal hernia, without obstruction or gangrene, not specified as recurrent (principal); Z87.19 Personal history of other diseases of the digestive system; Z98.890 Other specified postprocedural states | CPT/HCPCS: 99212 ==

== ENCOUNTER 2025-03-20 09:32 | Outpatient (AMB) | payer MEDICARE, SELFPAY ==
--- NOTE | 2025-03-20 09:45 | MHC.OFFVIS ---
Vital Signs 03/20/25 09:50 Height 5 ft 9 in Weight 164 lb 4 oz BMI 24.3 BP 144/95 H Blood Pressure Location Lt brachial Position Sitting Pulse 78 Intake Visit Reasons: 1 month follow up RIH w/mesh Intake Note: Patient is seen in office for one month follow up visit, post right inguinal hernia repair. Pt c/o: lump has slowly decrease, some pain once in a while, denies discharge, redness or other concerns Dope Firer Required: No Accompanied by: Self / Same As Patient Allergies No Known Allergies (No Known Allergies*) Allergy (Verified 03/20/25 09:50) HPI HPI 1 month follow up RIH w/mesh: Details: Doing well. Does get some mild pain occasionally with ambulation but he is not concerned about this. Has returned to work, still avoiding heavy lifting. No issues with bowel function. Swelling from last visit has improved significantly. [facility] Medical History Asthma-COPD overlap syndrome MDD (major depressive disorder), recurrent episode, moderate Tubular adenoma of colon Reducible right inguinal hernia Bacterial spinal epidural abscess (~09/2019) Nicotine dependence, cigarettes, uncomplicated Intravenous drug abuse Discitis Postlaminectomy syndrome Surgical History History of colonoscopy History of appendectomy History of tonsillectomy History of lumbar surgery Family History Father Medical history unknown Mother No problems noted. Social History Housing: House Are you a primary acute care certified nursing assistant to a significant other at home: No Do you presently have visiting nurse or other home services: No Alcohol intake: current Alcohol intake frequency: holidays/special occasions only Alcohol type: beer Patient Tobacco Use Status: Current everyday Tobacco user Tobacco use type: Cigarette Cigarettes Per Day: 2 Years Smoked: onset 16yo, 1ppd x 46yrs, now 5cig/day - 40pyh e-Cigarette/Vaping Use: Never Used Second Hand Smoke Exposure: No Substance Use Type: Crack/Cocaine and IV Drugs service: No Current occupational status: unemployed Cognitive needs: No Hearing needs: No Vision needs: Yes (reading glasses) Physical Exam Vital Signs: Last Vital Signs Pulse 78 03/20/25 09:50 BP 144/95 H 03/20/25 09:50 BMI result Body Mass Index 24.3 Const General: comfortable and no acute distress GI Other: Right inguinal hernia site well healed, edema improved. No recurrence on Valsalva, no concern for infection Palpation (GI): Soft to palpation and nontender Assessment & Plan Assessment & Plan (1) S/P inguinal hernia repair: Comment: Right inguinal hernia repair with mesh 02/06/2025, Dr. Sánchez Code(s): Z98.890 - Other specified postprocedural states; Z87.19 - Personal history of other diseases of the digestive system Category: Surgical Plan 64-year-old male s/p right inguinal hernia repair with Dr. Sánchez on 02/06/2025 returning to the office for routine follow-up. Overall doing well, denies significant pain, does get some slight pain with ambulation reassured him that this is appropriate and we will continue to improve. No difficulty with ambulation, sometimes gets uncomfortable when he bumps it on the sink at work but this is tolerable. Appetite and bowel function are at baseline. Recommended continuing Colace used to prevent constipation and straining with defecation. On exam the incision site appears to be healing well, edema has improved since last visit. There was no recurrence with Valsalva. no concern for infection at this time. He can continue warm compress to help soften some of the scar tissue at the incision site as needed. No longer requiring activity restrictions, can slowly advance to his baseline, recommended starting with body weight exercises. He can return as needed in the future with any concerns Coding Level of Care Code Global (02350) Diagnoses S/P inguinal hernia repair Z98.890; Z87.19
[2025-03-20 09:50] VITALS: BP 144/95; PULSE 78; BMI 24.3
== END 2025-03-20 10:04 | disposition home or self-care (01) ==
LOC: HO.HGS 09:32
PROVIDERS: PCP Physician Assistant
DX: Z98.890 Other specified postprocedural states (principal); Z87.19 Personal history of other diseases of the digestive system
CPT/HCPCS: 99024

== ENCOUNTER → 2025-03-20 09:32 | Outpatient (BNVA) | payer MEDICARE, SELFPAY | PROVIDERS: PCP Physician Assistant | DX: Z98.890 Other specified postprocedural states (principal); Z87.19 Personal history of other diseases of the digestive system | CPT/HCPCS: 99212 ==

== ENCOUNTER 2025-04-19 13:44 | Outpatient (AMB) | payer MEDICARE, SELFPAY ==
[2025-04-19 14:04] VITALS: BP 132/90; PULSE 79; O2SAT 97; BMI 23.4
--- NOTE | 2025-04-19 14:04 | MHC.OFFVIS ---
Vital Signs 04/19/25 14:04 Height 5 ft 9 in Weight 158 lb 11.725 oz BMI 23.4 BP 132/90 H Blood Pressure Location Lt brachial Position Sitting Pulse 79 Pulse Source Pulse Oximeter Pulse Oximetry (%) 97 Oxygen Delivery Method Room Air Intake Visit Reasons: COPD Intake Note: pt is here for follow up and states he gets short of breath with minimal exertion, neb treatment 3 times daily, some cough, some fatigue. Electronic Warfare Officer Required: No Director Volunteer Services: Director Volunteer Services offered & declined Allergies No Known Allergies (No Known Allergies*) Allergy (Verified 04/19/25 14:15) Medication List - Last Reconciled 04/19/25 by Regina Alejandro MD albuterol sulfate 2.5 mg (3 mL) inhalation Q6H PRN 30 days albuterol sulfate 90 mcg/actuation 2 puffs PO Q6H PRN 30 days budesonide 0.5 mg (2 mL) inhalation BID 30 days ibuprofen 600 mg PO Q6H PRN ibuprofen 800 mg PO Q6H PRN 15 days ipratropium-albuterol 0.5 mg-3 mg(2.5 mg base)/3 mL 3 mL inhalation Q6-8H PRN 30 days Do you need a note to return to daycare/school/sports/work: No HPI HPI COPD: Details: THIS 64 YEARS OLD GENTLEMAN IS A CASE OF ADVANCED CHRONIC OBSTRUCTIVE PULMONARY DISEASE RELATED TO HIS PAST SMOKING. HE IS IN THE LUNG SURVEILLANCE PROGRAM. FOR HIS COPD HE IS BENEFITING FROM USE OF ALBUTEROL/IPRATROPIUM SOLUTION IN THE NEBULIZER 3 TIMES A DAY, COUGH AND EXPECTORATION OR MUCH LESS THAN BEFORE. HE STILL GETS SHORT OF BREATH ON EXERTION WHICH IS EXPECTED. HIS LAST LDCT, SHOWS AN IRREGULAR SHAPE NODULE IN THE LEFT UPPER LOBE WHICH HAS GROWN IN SIZE. A PET SCAN HAS BEEN ORDERED BUT THE PATIENT MISSED HIS APPOINTMENT. [facility] Medical History Asthma-COPD overlap syndrome MDD (major depressive disorder), recurrent episode, moderate Tubular adenoma of colon Reducible right inguinal hernia Bacterial spinal epidural abscess (~09/2019) Nicotine dependence, cigarettes, uncomplicated Intravenous drug abuse Discitis Postlaminectomy syndrome Surgical History History of colonoscopy History of appendectomy History of tonsillectomy History of lumbar surgery Family History Father Medical history unknown Mother No problems noted. Social History Housing: House Are you a primary child care supervisor to a significant other at home: No Do you presently have visiting nurse or other home services: No Alcohol intake: current Alcohol intake frequency: holidays/special occasions only Alcohol type: beer Patient Tobacco Use Status: Current everyday Tobacco user Tobacco use type: Cigarette Cigarettes Per Day: 2 Years Smoked: onset 16yo, 1ppd x 46yrs, now 5cig/day - 40pyh e-Cigarette/Vaping Use: Never Used Second Hand Smoke Exposure: No Substance Use Type: Crack/Cocaine and IV Drugs service: No Current occupational status: unemployed Cognitive needs: No Hearing needs: No Vision needs: Yes (reading glasses) Review of Systems Const All systems reviewed & are unremarkable except as noted in HPI and below Eyes Reports no additional complaints ENT Reports no additional complaints Card Denies chest pain, Denies irregular heart rhythm and Denies leg edema Resp Reports as per HPI GI Reports no additional complaints Reports no additional complaints Musc Reports back pain ( chronic, uses muscle relaxants and ibuprofen p.r.n.) Skin/Breast Reports system reviewed and no additional complaints, except as documented Neuro Reports no additional complaints Psych Reports no additional complaints Endo Reports no additional complaints Aller/Immun Reports no additional complaints Physical Exam Vital Signs: Last Vital Signs Pulse 79 04/19/25 14:04 BP 132/90 H 04/19/25 14:04 Pulse Ox 97 04/19/25 14:04 Oxygen Delivery Method Room Air 04/19/25 14:04 BMI result Body Mass Index 23.4 Const General: healthy appearing, comfortable, no acute distress, alert and awake Orientation/consciousness: patient oriented x3 HEENT Head: Yes normal to inspection General nose exam: No nasal polyps present and No nasal discharge present Face and sinus: Yes sinuses nontender Mouth: oropharynx normal Throat: Yes posterior oropharynx normal Eyes General: appearance normal, both eyes and all related structures Neck Neck: Yes normal visual inspection, Yes no lymphadenopathy, Yes trachea midline and Yes no JVD Thyroid: Thyroid normal Chest Chest palpation & inspection: normal inspection of the chest, normal palpation of entire chest wall and no tenderness Resp Other: PERCUSSION NOTE IS HYPER-RESONANT, BREATH SOUNDS ARE DISTANT ON BOTH SIDES WITH. PROLONGED EXPIRATORY PHASE. NO WHEEZE.S RHONCHI OR CREPITATIONS ARE HEARD Cardio Palpation: normal PMI Rate: regular rate Rhythm: regular rhythm Heart sounds: no gallops and no murmurs Peripheral pulses: Peripheral pulses 2+ throughout GI Palpation (GI): Soft to palpation, nontender, No hepatosplenomegaly present and no masses Auscultation: normal bowel sounds Back/Spine/Pelvis Thoracic/Lumbar Spine: thoracic and lumbar spine normal to inspection Skin General skin exam: no rashes or lesions noted Neuro General: patient oriented x3 and no focal motor deficits Cranial nerves: Yes CN's II-XII intact bilaterally Extrem General: Yes normal to inspection, Yes no clubbing, cyanosis or edema and Yes no calf tenderness Psych Appearance: grossly normal and well kempt Speech and movement: Normal speech and movement present Results Reviewed Results Reviewed: 02/15/25 LDCT . IMPRESSION: Mild emphysema and scattered areas of bronchial wall thickening. Stable left upper lobe architectural distortion or scarring. Question gradual interval increase in size in AP dimension of the more inferior left upper lobe nodule now measuring 8.7 x 5.9 mm. LUNG-RADS ASSESSMENT: Lung-RADS 4A: Suspicious Assessment & Plan Assessment & Plan (1) Nicotine dependence, cigarettes, uncomplicated: Comment: (current smoker, onset 16yo, 1ppd x 46yrs, now 1/4ppd - 40pyh). As had LDCT on , which was category 2 benign . Code(s): F17.210 - Nicotine dependence, cigarettes, uncomplicated Category: Medical Plan: PATIENT IS COUNSELED TO STOP SMOKING OR AT LEAST KEEP ON CUTTING DOWN THE NUMBER OF CIGARETTES. HE IS IN LUNG SCREENING PROGRAM AND HIS LAST CT SCAN IN JANUARY SHOWS NODULE IN LEFT UPPER LOBE INCREASED IN SIZE FOR THIS REASON HE IS SUPPOSED TO HAVE PET SCAN WHICH HAS BEEN ORDERED AT [facility]. (2) COPD (chronic obstructive pulmonary disease): Comment: THIS GENTLEMAN DOES HAVE MODERATE TO SEVERE CHRONIC OBSTRUCTIVE PULMONARY DISORDER., PER PFT IN 2011 HE HAS REMAINED RELATIVELY STABLE, BUT SHORT OF BREATH ON EXERTION. TX : HAS HAD PROBLEM IN GETTING THE INHALERS BECAUSE OF NON COVERAGE BY INSURANCE. SINCE HIS LAST VISIT FEW WEEKS AGO HE IS USING IPRATROPIUM-ALBUTEROL SOLUTION IN THE NEBULIZER 3 TIMES A DAY. HE HARDLY NEEDS TO USE THE RESCUE INHALER ALBUTEROL/ OR ALBUTEROL SOLUTION IN THE NEBULIZER. I HAD ALSO ORDERED THE BUDESONIDE SOLUTION TO USE TWICE A DAY IN THE NEBULIZER, BUT HE WAS NOT ABLE TO GET IT DUE TO HIGH EDWARDS. Code(s): J44.9 - Chronic obstructive pulmonary disease, unspecified Category: Medical Qualifiers: COPD type: COPD with acute exacerbation Qualified Code(s): J44.1 - Chronic obstructive pulmonary disease with (acute) exacerbation Plan: CONTINUE USING IPRATROPIUM-ALBUTEROL SOLUTION IN THE NEBULIZER Q 6 HOURS WHILE AWAKE ( TID ) AND MAY USE EXTRA TREATMENT IF HE WAKES UP AT NIGHT WITH RESPIRATORY DISTRESS, (3) Left upper lobe pulmonary nodule: Comment: 02/15/25 LDCT showed increase in size of MIKO nodule now measuring 8.7 x 5.9 mm. Reviewed at conference and plan is for PET scan Code(s): R91.1 - Solitary pulmonary nodule Category: Medical Plan: PET SCAN ORDERS HAVE BEEN COMPLETED AND HE HAS TO MAKE APPOINTMENT FOR THE STUDY. Coding Level of Care Code Est Pt Level 3 (33445) Diagnoses Nicotine dependence, cigarettes, uncomplicated F17.210 Centrilobular emphysema J44.1 COPD type: COPD with acute exacerbation Left upper lobe pulmonary nodule R91.1
== END 2025-04-19 14:27 | disposition home or self-care (01) ==
LOC: HO.HPS 13:44
PROVIDERS: PCP Physician Assistant; Visit Provider Internal Medicine
DX: F17.210 Nicotine dependence, cigarettes, uncomplicated (principal); J44.1 Chronic obstructive pulmonary disease with (acute) exacerbation; R91.1 Solitary pulmonary nodule
CPT/HCPCS: 99213

== ENCOUNTER → 2025-04-19 13:44 | Outpatient (BNVA) | payer MEDICARE, SELFPAY | PROVIDERS: PCP Physician Assistant; Visit Provider Internal Medicine | DX: J44.1 Chronic obstructive pulmonary disease with (acute) exacerbation (principal); F17.210 Nicotine dependence, cigarettes, uncomplicated; R91.1 Solitary pulmonary nodule; Z79.899 Other long term (current) drug therapy | CPT/HCPCS: 99212 ==

== ENCOUNTER 2025-04-25 09:34 | Outpatient (AMB) | payer MEDICARE, SELFPAY ==
--- NOTE | 2025-04-25 09:47 | MHC.PC.OV ---
Vital Signs 04/25/25 09:48 Height 5 ft 9 in Weight 160 lb BMI 23.6 BP 120/80 Blood Pressure Location Lt brachial Position Sitting Pulse 81 Pulse Source Pulse Oximeter Temp 97.1 F Temp Source Temporal Artery Scan Pulse Oximetry (%) 97 Oxygen Delivery Method Room Air Intake Visit Reasons: f/u COPD Intake Note: Patient is here to follow up on COPD. Security Agent Required: No Content Director: Not Required per policy Accompanied by: Self / Same As Patient Allergies No Known Allergies (No Known Allergies*) Allergy (Verified 04/25/25 10:08) Medication List - Last Reconciled 04/25/25 by Salinas Barcenas PA-C albuterol sulfate 90 mcg/actuation 2 puffs PO Q6H PRN 30 days budesonide 0.5 mg (2 mL) inhalation BID 30 days ibuprofen 600 mg PO Q6H PRN ibuprofen 800 mg PO Q6H PRN 15 days ipratropium-albuterol 0.5 mg-3 mg(2.5 mg base)/3 mL 3 mL inhalation Q6-8H PRN 30 days Tobacco use date assessed: 04/25/25 Dental Screening Dental Screen Date: 04/25/25 Did you have a dental visit in the last 12 months?: No Did you have a dental problem in the last 6 months where you did not have access to dental care?: No Was dental information given to patient?: No HPI f/u COPD HPI Details Patient is a 64-year-old male here today for follow up visit .? Patient has a past medical history significant for COPD, tobacco use disorder, lumbar disc disease, Concern--> He reports a new concern of penile curvature with erection, which he finds embarrassing. He also reports a new rash on the right side of his back. .. COPD:? He reports his maintenance inhaler low Breo has been too expensive for him, will try to send in Trelegy. He unfortunately continues to smoke a few cigarettes per day due to his stress ? He is using nicotine gum which he has find helpful. We did speak about generic Chantix and would like to hold off on this for now. Patient does have a concerning left lung nodule which has been noted to be increased in more suspicious, has upcoming PET [facility] at [facility] for evaluation. .. Hyperlipidemia: Has a history of elevated total cholesterol. Will recheck fasting lipid panel to assure appropriate total cholesterol and LDL. .. Lumbar disc disease: The patient identifies his low back as his real problem, with pain that can be severe, stating it was killing me all day yesterday. He has a history of major back surgery and had an MRI of the lumbar spine in 2020 which showed disc disease at L1-L2 and L2-L3. He also recalls a back infection about 4-5 years ago that required rehab. He has a prior prescription for Baclofen which he has not been taking. [facility] Medical History (Updated 04/25/25 @ 10:26 by Salinas Barcenas PA-C) Asthma-COPD overlap syndrome MDD (major depressive disorder), recurrent episode, moderate Tubular adenoma of colon Reducible right inguinal hernia Bacterial spinal epidural abscess (~09/2019) Nicotine dependence, cigarettes, uncomplicated Intravenous drug abuse Discitis Postlaminectomy syndrome Surgical History History of hernia surgery History of colonoscopy History of appendectomy History of tonsillectomy History of lumbar surgery Family History Father Medical history unknown Mother No problems noted. Social History Housing: House Are you a primary acute care nurse to a significant other at home: No Do you presently have visiting nurse or other home services: No Alcohol intake: current Alcohol intake frequency: holidays/special occasions only Alcohol type: beer Patient Tobacco Use Status: Current everyday Tobacco user Tobacco use type: Cigarette Cigarette Packs Per Day: 0.25 Cigarettes Per Day: 2 Years Smoked: onset 16yo, 1ppd x 46yrs, now 5cig/day - 40pyh e-Cigarette/Vaping Use: Never Used Second Hand Smoke Exposure: Yes Substance Use Type: Crack/Cocaine and IV Drugs service: No Current occupational status: unemployed Cognitive needs: No Hearing needs: No Vision needs: Yes (reading glasses) Questionnaire Thrive Questionnaire Date Thrive assessed: 10/26/24 I am a: Patient What is your living situation today?: I do not have a steady places to live I am temporarily staying with others Within the past 12 months, did the food you bought not last and you didn't have the money to get more?: Sometimes True Within the past 12 months, did you worry whether your food would run out before you got money to buy more?: Sometimes True Do you have trouble paying for medicines?: No Do you have trouble getting transportation to medical appointments?: Yes Do you have trouble paying your heating and electricity bill?: No Do you have trouble taking care of your child, family member or friend?: No Do you have trouble with day-to-day activities such as bathing, preparing meals, shopping, managing finances, etc.?: No Are you currently unemployed and looking for a job?: No Are you interested in more education?: No Please select the resources that you would like help with: Housing/Fci Currently or been in a relationship where the following occur: No concerns reported THRIVE Score: 4 AUDIT C Alcohol Use Questionnaire (AUDIT-C) 1. How often do you have a drink containing alcohol?: Monthly or less 2. How many drinks containing alcohol do you have on a typical day when you are drinking?: 1 or 2 3. How often do you have six or more drinks on one occasion?: Never Total Score: 1 JONES-7 AMB Questionnaire JONES-7 Date JONES - 7 assessed: 10/26/23 Feeling nervous, anxious, or on edge: 0 = Not at all Not being able to stop or control worryin = Not at all Worrying too much about different things: 2 = More than half the days Trouble relaxin = Several days Being so restless that it is hard to sit still: 0 = Not at all Becoming easily annoyed or irritable: 1 = Several days Feeling afraid as if something awful might happen: 0 = Not at all Total JONES-7 score (0-4 normal; 5-9 mild; 10-14 moderate; 15-21 severe): 4 Source: Developed by Drs. Micheal Alba, Dorothy Carl, Nicolas Haq and colleagues, with an educational manny from [employer]. Review of Systems Const Denies headache(s) Eyes Denies loss of vision ENT Denies vertigo, Denies dizziness, Denies headache(s) and Denies sore throat Card Denies chest pain, Denies leg edema and Denies lightheadedness Resp Denies cough, Denies hemoptysis and Denies wheezing GI Denies abdominal pain, Denies melena, Denies constipation, Denies diarrhea and Denies vomiting Denies dysuria, Denies urinary frequency and Denies urinary urgency Musc Denies arthralgias, Denies joint swelling, Denies numbness and Denies tingling Neuro Denies Abnormal speech present, Denies behavioral changes, Denies vertigo, Denies dizziness, Denies headache(s), Denies loss of vision, Denies memory loss, Denies numbness and Denies tingling Psych Denies anxiety, Denies behavioral changes, Denies depression, Denies memory loss and Denies panic attacks Blake/Lymph Denies easy bleeding and Denies easy bruising Aller/Immun Denies wheezing Physical exam (Primary Care) Vital Signs: Last Vital Signs Temp 97.1 F 04/25/25 09:48 Pulse 81 04/25/25 09:48 BP 120/80 04/25/25 09:48 Pulse Ox 97 04/25/25 09:48 Oxygen Delivery Method Room Air 04/25/25 09:48 BMI result Body Mass Index 23.6 Tobacco/Smoking Status: Tobacco use Status Tobacco use date assessed 04/25/25 04/25/25 09:53 Patient Tobacco Use Status Current everyday Tobacco 04/25/25 09:53 Tobacco use type Cigarette 04/25/25 09:53 e-Cigarette/Vaping Use Never Used 04/25/25 09:53 Thrive Assessment: Date of Thrive Assessment Date Thrive assessed 10/26/24 04/25/25 09:53 Currently or been in a relationship where the following occur: No concerns reported Const General: healthy appearing, no acute distress, alert and awake Nutritional Appearance: well nourished Orientation/consciousness: oriented to person, oriented to place and oriented to time [facility] Ears: TM's normal bilaterally General nose exam: Normal nasal mucous membranes and turbinates present Eyes Conjunctivae: conjunctivae normal Sclerae: sclerae normal Pupils: Equal, round and reactive pupils present Neck Neck: Yes no lymphadenopathy and Yes no JVD Thyroid: Thyroid normal Carotids: no bruits Resp Effort & Inspection: normal respiratory effort and not tachypneic Auscultation: no crackles, no rales, no rhonchi and no wheezes Cardio Rate: regular rate Rhythm: regular rhythm Heart sounds: no murmurs and normal S1 and S2 GI Palpation (GI): Soft to palpation, nontender, no hepatomegaly and no splenomegaly Auscultation: normal bowel sounds Skin General skin exam: no rashes or lesions noted and dry skin Neuro General: oriented to person, oriented to place and oriented to time Cranial nerves: Yes Equal, round and reactive pupils present Speech: No Abnormal speech present Gait exam (Neuro): Normal gait present Motor exam (neuro): no tremor noted Extrem Right upper extremity: full ROM Left upper extremity: full ROM Right lower extremity: full ROM; no edema Left lower extremity: full ROM; no edema Psych Mental Status: mental status grossly normal Speech and movement: Normal speech and movement present Affect: normal affect Attitude: cooperative Thought process: Normal thought process present Coding Level of Care Code Est Pt Level 4 (08477) Diagnoses Centrilobular emphysema J44.1 COPD type: COPD with acute exacerbation Mixed hyperlipidemia E78.2 Hyperlipidemia type: mixed hyperlipidemia Nicotine dependence, cigarettes, uncomplicated F17.210 Lumbar disc disease with radiculopathy M51.16 Irritant contact dermatitis due to detergent L24.0 Contact dermatitis type: irritant Contact dermatitis trigger: detergents Peyronie disease N48.6 Pulmonary nodule, left R91.1 Assessment & Plan Assessment & Plan (1) COPD (chronic obstructive pulmonary disease): Comment: THIS GENTLEMAN DOES HAVE MODERATE TO SEVERE CHRONIC OBSTRUCTIVE PULMONARY DISORDER., PER PFT IN 2012 HE HAS REMAINED RELATIVELY STABLE, BUT SHORT OF BREATH ON EXERTION. TX : HAS HAD PROBLEM IN GETTING THE INHALERS BECAUSE OF NON COVERAGE BY INSURANCE. SINCE HIS LAST VISIT FEW WEEKS AGO HE IS USING IPRATROPIUM-ALBUTEROL SOLUTION IN THE NEBULIZER 3 TIMES A DAY. HE HARDLY NEEDS TO USE THE RESCUE INHALER ALBUTEROL/ OR ALBUTEROL SOLUTION IN THE NEBULIZER. I HAD ALSO ORDERED THE BUDESONIDE SOLUTION TO USE TWICE A DAY IN THE NEBULIZER, BUT HE WAS NOT ABLE TO GET IT DUE TO HIGH EDWARDS. Code(s): J44.9 - Chronic obstructive pulmonary disease, unspecified Category: Medical Qualifiers: COPD type: COPD with acute exacerbation Qualified Code(s): J44.1 - Chronic obstructive pulmonary disease with (acute) exacerbation Plan: Needs to follow [place] pulmonology. He reports his breathing has been pretty stable with maintenance inhaler and p.r.n. use of his albuterol inhaler nebulizer. He unfortunately still smokes from time to time and does understand he needs to completely quit smoking. (2) HLD (hyperlipidemia): Code(s): E78.5 - Hyperlipidemia, unspecified Category: Medical Qualifiers: Hyperlipidemia type: mixed hyperlipidemia Qualified Code(s): E78.2 - Mixed hyperlipidemia Plan: Has not had fasting labs in quite some time. He promises to do some fasting labs before upcoming annual physical. Goal LDL to be below 130 (3) Nicotine dependence, cigarettes, uncomplicated: Comment: (current smoker, onset 16yo, 1ppd x 46yrs, now 1/4ppd - 40pyh). As had LDCT on , which was category 2 benign . Code(s): F17.210 - Nicotine dependence, cigarettes, uncomplicated Category: Medical Plan: As above patient does understand he needs to completely quit smoking. He does report having access to nicotine replacement already. (4) Lumbar disc disease with radiculopathy: Code(s): M51.16 - Intervertebral disc disorders with radiculopathy, lumbar region Category: Medical Plan: Regarding his chronic low back pain, a new MRI of the lumbar spine will be ordered to re-evaluate his condition. He was advised to try the Baclofen he has at home for muscle relaxation and can continue using ibuprofen for pain. (5) Contact dermatitis: Code(s): L25.9 - Unspecified contact dermatitis, unspecified cause Category: Medical Qualifiers: Contact dermatitis type: irritant Contact dermatitis trigger: detergents Qualified Code(s): L24.0 - Irritant contact dermatitis due to detergents Plan: For the rash on his back, which appears to be contact dermatitis, a topical steroid cream will be prescribed to help with inflammation and itching. (6) Peyronie disease: Code(s): N48.6 - Induration penis plastica Category: Medical Plan: To address the penile curvature, a trial of Cialis will be prescribed, to be taken prior to sexual activity. A referral will be placed to Urology for further evaluation and discussion of other potential treatments, such as injections. (7) Pulmonary nodule, left: Code(s): R91.1 - Solitary pulmonary nodule Category: Medical Plan: Patient is due for PET scan for suspicious left lung nodule, he does understand he needs to completely quit smoking. Orders: Orders Comprehensive [place]. Panel Fast Today E78.2 - Mixed hyperlipidemia MR lumbar spine wo con Today M51.16 - Intervertebral disc disorders with radiculopathy, lumbar region Lipid Panel Today E78.2 - Mixed hyperlipidemia Complete Blood Count no Diff Today E78.2 - Mixed hyperlipidemia Prostate Specific Antigen Scr Today E78.2 - Mixed hyperlipidemia, Z12.5 - Encounter for screening for malignant neoplasm of prostate Referrals Urology Referral N48.6 - Induration penis plastica Medications: New triamcinolone acetonide 0.5% 1 appl topical DAILY 15 grams 0RF 30 days L25.9 - Unspecified contact dermatitis, unspecified cause tadalafil (Cialis) 20 mg PO DAILY PRN 4 tabs 0RF sexual activity 4 days N48.6 - Induration penis plastica
[2025-04-25 09:48] VITALS: BP 120/80; PULSE 81; TEMP 36.2; O2SAT 97; BMI 23.6
== END 2025-04-25 10:30 | disposition home or self-care (01) ==
LOC: HO.HMCH 09:35
PROVIDERS: PCP Physician Assistant; Visit Provider Physician Assistant
DX: J44.1 Chronic obstructive pulmonary disease with (acute) exacerbation (principal); E78.2 Mixed hyperlipidemia; F17.210 Nicotine dependence, cigarettes, uncomplicated; M51.16 Intervertebral disc disorders with radiculopathy, lumbar region; L24.0 Irritant contact dermatitis due to detergents; N48.6 Induration penis plastica; R91.1 Solitary pulmonary nodule

== ENCOUNTER → 2025-04-25 09:34 | Outpatient (BNVA) | payer MEDICARE, SELFPAY | PROVIDERS: PCP Physician Assistant; Visit Provider Physician Assistant | DX: J44.1 Chronic obstructive pulmonary disease with (acute) exacerbation (principal); E78.2 Mixed hyperlipidemia; M51.16 Intervertebral disc disorders with radiculopathy, lumbar region; L24.0 Irritant contact dermatitis due to detergents; N48.6 Induration penis plastica; R91.1 Solitary pulmonary nodule; F17.210 Nicotine dependence, cigarettes, uncomplicated | CPT/HCPCS: 99212 ==